=== PATIENT | female | born 1980 | race Caucasian/White ===

== ENCOUNTER 2018-12-12 05:05 | Emergency (ER) | payer OTHER ==
--- OUTSIDE RECORDS SUMMARY | 2018-12-12 05:08 | XMS REPORT ---
:1980 Author Organization [facility] Address [address] [place] [address] Dr. Acosta [address] [place] [id number] Care Team Providers Name Role Phone Unavailable Unavailable Unavailable Problems This patient has no known problems. Allergies, Adverse Reactions, Alerts This patient has no known allergies or adverse reactions. Medications This patient has no known medications.
--- NOTE | 2018-12-12 06:27 | EDPHYS ---
Physician Documentation [facility] Name: Hilaria Guevara Age: 38 yrs Sex: Female : 1980 Arrival Date: 12/12/2018 Time: 05:07 Bed 14 Private MD: MIL Physician Flavio Mckeon HPI: 12/12 06:22 This 38 yrs old Female presents to ER via Ambulatory with complaints of Pain ct With Urination, Urinary Frequency. 06:22 The patient presents with urinary symptoms, dysuria, frequency, hesitancy, ct incontinence. Onset: The symptoms/episode began/occurred 2 day(s) ago. Modifying factors: The symptoms are alleviated by nothing, the symptoms are aggravated by. Associated signs and symptoms: The patient has no apparent associated signs or symptoms. Severity of symptoms: At their worst the symptoms were mild, moderate, in the emergency department the symptoms are unchanged. The patient is sexually active, reportedly has a single partner. The patient has experienced similar episodes in the past, several times. 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 Historical: - Allergies: 05:24 Penicillins; jb4 - Home Meds: 05:24 Metformin Oral [Active]; trulicity [Active]; Invokana oral oral [Active]; BuSpar Oral jb4 [Active]; Wellbutrin Oral [Active]; Depakote ER Oral [Active]; Lisinopril Oral [Active]; Trazodone Oral [Active]; Lipitor Oral [Active]; nateglinide oral oral [Active]; fenofibrate oral oral [Active]; - PMHx: 05:24 Diabetes - NIDDM; Hyperlipidemia; Hypertension; Anxiety; Bipolar disorder; Depression; jb4 - PSHx: 05:24 Cholecystectomy; breast reduction; ; jb4 - Immunization history:: Adult Immunizations up to date. - Social history:: Smoking status: Patient uses tobacco products, cigars, Patient/guardian denies using alcohol. - Ebola Screening: : No symptoms or risks identified at this time. - Family history:: not pertinent. ROS: 06:22 Constitutional: Negative for fever, chills, and weight loss, Eyes: Negative for injury, ct pain, redness, and discharge, ENT: Negative for injury, pain, and discharge, Neck: Negative for injury, pain, and swelling, Cardiovascular: Negative for chest pain, palpitations, and edema, Respiratory: Negative for shortness of breath, cough, wheezing, and pleuritic chest pain, Back: Negative for injury and pain, : Negative for injury, bleeding, discharge, and swelling, MS/Extremity: Negative for injury and deformity, Skin: Negative for injury, rash, and discoloration, Neuro: Negative for headache, weakness, numbness, tingling, and seizure, Psych: Negative for depression, anxiety, suicide ideation, homicidal ideation, and hallucinations, Allergy/Immunology: Negative for hives, rash, and allergies, Endocrine: Negative for neck swelling, polydipsia, polyuria, polyphagia, and marked weight changes, Hematologic/Lymphatic: Negative for swollen nodes, abnormal bleeding, and unusual bruising. 06:22 Abdomen/GI: Positive for abdominal pain. 06:22 Back: Positive for flank pain, on the right. Exam: 06:22 Constitutional: This is a well developed, well nourished patient who is awake, alert, ct and in no acute distress. Head/Face: Normocephalic, atraumatic. Eyes: Pupils equal round and reactive to light, extra-ocular motions intact. Lids and lashes normal. Conjunctiva and sclera are non-icteric and not injected. Cornea within normal limits. Periorbital areas with no swelling, redness, or edema. ENT: Nares patent. No nasal discharge, no septal abnormalities noted. Tympanic membranes are normal and external auditory canals are clear. Oropharynx with no redness, swelling, or masses, exudates, or evidence of obstruction, uvula midline. Mucous membranes moist. Neck: Trachea midline, no thyromegaly or masses palpated, and no cervical lymphadenopathy. Supple, full range of motion without nuchal rigidity, or vertebral point tenderness. No Meningismus. Chest/axilla: Normal chest wall appearance and motion. Nontender with no deformity. No lesions are appreciated. Cardiovascular: Regular rate and rhythm with a normal S1 and S2. No gallops, murmurs, or rubs. Normal PMI, no JVD. No pulse deficits. Respiratory: Lungs have equal breath sounds bilaterally, clear to auscultation and percussion. No rales, rhonchi or wheezes noted. No increased work of breathing, no retractions or nasal flaring. Abdomen/GI: Soft, non-tender, with normal bowel sounds. No distension or tympany. No guarding or rebound. No evidence of tenderness throughout. Female : Normal external genitalia. Skin: Warm, dry with normal turgor. Normal color with no rashes, no lesions, and no evidence of cellulitis. MS/ Extremity: Pulses equal, no cyanosis. Neurovascular intact. Full, normal range of motion. Neuro: Awake and alert, GCS 15, oriented to person, place, time, and situation. Cranial nerves II-XII grossly intact. Motor strength 5/5 in all extremities. Sensory grossly intact. Cerebellar exam normal. Normal gait. Psych: Awake, alert, with orientation to person, place and time. Behavior, mood, and affect are within normal limits. 06:22 Back: pain, that is mild, of the mid back area. Vital Signs: 05:24 BP 124 / 78; Pulse 91; Resp 16; Temp 98.2(O); Pulse Ox 97% on R/A; Weight 90.72 kg (R); jb4 Height 5 ft. 6 in. (167.64 cm) (R); Pain 6/10; 05:45 BP 106 / 74; Pulse 89; Resp 16; Pulse Ox 96% on R/A; jb4 06:30 BP 107 / 86; Pulse 90; Resp 16; Pulse Ox 97% on R/A; jb4 05:24 Body Mass Index 32.28 (90.72 kg, 167.64 cm) 4 MDM: 05:09 Patient medically screened. [facility] 06:22 Data reviewed: vital signs, nurses notes, lab test result(s). [facility] 12/12 05:09 Order name: Urine Culture [facility] 12/12 05:40 Order name: Urine Dipstick--Ancillary (enter results) [facility] 12/12 05:40 Order name: Urine --Ancillary (enter results) [facility] 12/12 05:40 Order name: Urine Microscopic Only [facility] 12/12 05:09 Order name: Urine Dipstick-Ancillary (obtain specimen); Complete Time: 05:34 [facility] 12/12 05:09 Order name: Urine Test (obtain specimen); Complete Time: 05:34 [facility] Administered Medications: 06:39 Drug: LevOfloxacin 750 mg Route: PO; jb4 06:39 Follow up: Response: Medication administered at discharge. jb4 06:39 Drug: Bactrim (160 mg-800 mg (DS) 1 tablet Route: PO; jb4 06:39 Follow up: Response: Medication administered at discharge. jb4 Point of Care Testing: Blood Glucose: 05:44 Blood Glucose: 165 mg/dL; jb4 Ranges: Critical Glucose Levels:Adult <50 mg/dl or >400 mg/dl <40 mg/dl or >180 mg/dl Disposition: 12/12/18 06:26 Discharged to Home. Impression: Dysuria, Type 2 diabetes mellitus, Urinary tract infection, site not specified. - Condition is Stable. - Discharge Instructions: Type 2 Diabetes Mellitus, Diagnosis, Adult, Dysuria, Urinary Tract Infection, Adult, Urinary Tract Infection, Adult, [id number], Type 2 Diabetes Mellitus, Diagnosis, Adult, [id number]. - Prescriptions for Pyridium 200 mg Oral Tablet - take 1 tablet by ORAL route every 8 hours for 2 days; 6 tablet. Cipro 500 mg Oral Tablet - take 1 tablet by ORAL route every 12 hours for 7 days; 14 tablet. Bactrim DS 800- 160 mg Oral Tablet - take 1 tablet by ORAL route every 12 hours for 3 days; 6 tablet. - Medication Reconciliation Form, Thank You Letter, Antibiotic Education, Prescription Opioid Use form. - Follow up: Private Physician; When: 2 - 3 days; Reason: Recheck today's complaints, Continuance of care, Re-evaluation by your physician. - Problem is new. - Symptoms have improved. Signatures: Dispatcher [employer] Flavio Grier MD MD cha Bryson, James RN RN jb4 Corrections: (The following items were deleted from the chart) 06:42 06:26 12/12/2018 06:26 Discharged to Home. Impression: Dysuria; Type 2 diabetes jb4 mellitus; Urinary tract infection, site not specified. Condition is Stable. Forms are Medication Reconciliation Form, Thank You Letter, Antibiotic Education, Prescription Opioid Use. Follow up: Private Physician; When: 2 - 3 days; Reason: Recheck today's complaints, Continuance of care, Re-evaluation by your physician. Problem is new. Symptoms have improved. ct
--- NOTE | 2018-12-12 06:27 | ER ---
Nurse's Notes [facility] Name: Hilaria Guevara Age: 38 yrs Sex: Female : 1980 Arrival Date: 12/12/2018 Time: 05:07 Bed 14 Private MD: Diagnosis: Dysuria;Type 2 diabetes mellitus;Urinary tract infection, site not specified Presentation: 12/12 05:18 Presenting complaint: Patient states: I started having burning with urination on jb4 Sunday that has progressively gotten worse. Transition of care: patient was not received from another setting of care. Onset of symptoms was December 10, 2018. Risk Assessment: Do you want to hurt yourself or someone else? Patient reports no desire to harm self or others. Initial Sepsis Screen: Does the patient meet any 2 criteria? HR > 90 bpm. Yes Does the patient have a suspected source of infection? Yes: Dysuria/Frequency/Urgency/UTI. Care prior to arrival: None. 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 Historical: - Allergies: 05:24 Penicillins; jb4 - Home Meds: 05:24 Metformin Oral [Active]; trulicity [Active]; Invokana oral oral [Active]; BuSpar Oral jb4 [Active]; Wellbutrin Oral [Active]; Depakote ER Oral [Active]; Lisinopril Oral [Active]; Trazodone Oral [Active]; Lipitor Oral [Active]; nateglinide oral oral [Active]; fenofibrate oral oral [Active]; - PMHx: 05:24 Diabetes - NIDDM; Hyperlipidemia; Hypertension; Anxiety; Bipolar disorder; Depression; jb4 - PSHx: 05:24 Cholecystectomy; breast reduction; ; jb4 - Immunization history:: Adult Immunizations up to date. - Social history:: Smoking status: Patient uses tobacco products, cigars, Patient/guardian denies using alcohol. - Ebola Screening: : No symptoms or risks identified at this time. - Family history:: not pertinent. Screenin:34 Abuse screen: Denies threats or abuse. Nutritional screening: No deficits noted. jb4 Tuberculosis screening: No symptoms or risk factors identified. Fall Risk None identified. Assessment: 05:34 General: Appears in no apparent distress. comfortable, Behavior is calm, cooperative, jb4 appropriate for age. Pain: Complains of pain in right low back and groin Pain does not radiate. Pain currently is 6 out of 10 on a pain scale. Neuro: Level of Consciousness is awake, alert, obeys commands, Oriented to person, place, time, situation. Cardiovascular: Patient's skin is warm and dry. Respiratory: Airway is patent Respiratory effort is even, unlabored, Respiratory pattern is regular, symmetrical. GI: Reports nausea. : Urine is cloudy, Reports burning with urination, since Sunday pain in suprapubic area in lower back with urination, urgency, since sunday Patient is sexually active. EENT: No signs and/or symptoms were reported regarding the EENT system. Derm: Skin is intact, Skin is pink, warm \T\ dry. Musculoskeletal: Circulation, motion, and sensation intact. Range of motion: intact in all extremities. 05:58 Reassessment: Patient appears in no apparent distress at this time. Patient and/or jb4 family updated on plan of care and expected duration. Pain level reassessed. Patient is alert, oriented x 3, equal unlabored respirations, skin warm/dry/pink. 06:40 Reassessment: Patient appears in no apparent distress at this time. Patient and/or jb4 family updated on plan of care and expected duration. Pain level reassessed. Patient is alert, oriented x 3, equal unlabored respirations, skin warm/dry/pink. PT ambulated out of ED with steady gait, verbalized understanding of d/c and follow up instructions, denies questions or concerns. Vital Signs: 05:24 BP 124 / 78; Pulse 91; Resp 16; Temp 98.2(O); Pulse Ox 97% on R/A; Weight 90.72 kg (R); jb4 Height 5 ft. 6 in. (167.64 cm) (R); Pain 6/10; 05:45 BP 106 / 74; Pulse 89; Resp 16; Pulse Ox 96% on R/A; jb4 06:30 BP 107 / 86; Pulse 90; Resp 16; Pulse Ox 97% on R/A; jb4 05:24 Body Mass Index 32.28 (90.72 kg, 167.64 cm) jb4 ED Course: 05:07 Patient arrived in ED. ds1 05:08 Jeffry Owens, RN is Primary Nurse. jb4 05:09 Flavio Mckeon MD is Attending Physician. [facility] 05:20 Triage completed. jb4 05:24 Arm band placed on right wrist. jb4 05:34 Patient has correct armband on for positive identification. Bed in low position. Call jb4 light in reach. Side rails up X 1. 05:34 Urine Culture Sent. jb4 06:41 No provider procedures requiring assistance completed. Patient did not have IV access jb4 during this emergency room visit. Administered Medications: 06:39 Drug: LevOfloxacin 750 mg Route: PO; jb4 06:39 Follow up: Response: Medication administered at discharge. jb4 06:39 Drug: Bactrim (160 mg-800 mg (DS) 1 tablet Route: PO; jb4 06:39 Follow up: Response: Medication administered at discharge. jb4 Point of Care Testing: Blood Glucose: 05:44 Blood Glucose: 165 mg/dL; jb4 Ranges: Outcome: 06:26 Discharge ordered by . [facility] 06:41 Discharged to home ambulatory, with significant other. jb4 06:41 Condition: stable 06:41 Discharge instructions given to patient, significant other, Instructed on discharge instructions, follow up and referral plans. medication usage, Demonstrated understanding of instructions, follow-up care, medications, Prescriptions given X 3. 06:42 Patient left the ED. jb4 Addendum: 12/15/2018 07:49 Addendum: Culture Results: Positive urine culture. No further action required. Bacteria i w sensitive to prescribed antibiotic. Signatures: Flavio Mckeon MD MD cha Sanford, Demi ds1 Maday Awad, MARIE SALAZAR Jeffry Owens, MARIE RN jb4
[2018-12-12] MEDS ORDERED: SMZ./TMP. 800/160 MG TABLET ONE (06:48)
[2018-12-12] MEDS ORDERED: levoFLOXacin 750 MG TAB ONE (06:48)
[2018-12-12 07:10] LABS: Urine Bacteria <20 /HPF (<20); Urine Culture Reflex Order REFLEXED; Urine RBC >50 /HPF (NONE SEEN)
[2018-12-12 07:12] LABS: Urine Blood 3+ (NEG); Urine Glucose 3+ (NEG); Urine Protein 3+ (NEG); Urine pH 5.5 (5.0-7.0)
== END 2018-12-12 06:42 | disposition home or self-care (01) ==
LOC: ER 05:05
DX: N39.0 Urinary tract infection, site not specified (principal); E11.9 Type 2 diabetes mellitus without complications; E78.5 Hyperlipidemia, unspecified; I10 Essential (primary) hypertension; F41.9 Anxiety disorder, unspecified; F31.9 Bipolar disorder, unspecified; Z72.0 Tobacco use; Z79.84 Long term (current) use of oral hypoglycemic drugs; Z88.0 Allergy status to penicillin
CPT/HCPCS: 81003; 81015; 81025; 82962; 87077; 87086; 87088; 87186; 99283

== ENCOUNTER 2024-04-09 23:34 | Emergency (ER) | payer OTHER ==
--- OUTSIDE RECORDS SUMMARY | 2024-04-09 23:41 | XMS REPORT | Continuity of Care Document ---
Author Name Unknown Address [address] [facility]. [address] [place] [address] [facility] Address [address] [facility] [address] [place] [address] Care Team Providers Care Rubber Goods Assembler Name Role Phone ADRIA TORRES Primary Care Physician Stephy vailaErica Carlos Attending Clinician Unavailable Miriam Arce Attending Clinician Unavailable DR MIRIAM ARCE Attending Clinician UnavailCLINT Cheung Attending Clinician UnavailSHIKHA Youssef Attending Clinician Unavailable SIMONE CHADWICK Attending Clinician Unavailable SIMONE CHADWICK Attending Clinician Unavailable Clint Jett MD Attending Clinician [phone] Adria Torres MD Attending Clinician + [phone] ADRIA TORRES Attending Clinician UnaClint Branham MD Attending Clinician [phone] Shikha Luna Attending Clinician [phone] Atif Goins Attending Clinician Unavailable Adria Torres MD Attending Clinician + [phone] KRISTINA ALEX Attending Clinician Unavail able YUNI SCOTT Attending Clinician Stephy vailaYuni Soto MD Attending Clinician Hemanth Ritter CRNA Attending Clinician Barrera SAMUELS, Shawn Douglas Attending Clinician [phone] Doctor Unassigned, [place] Attending Clinician U richard Hernánb, [facility] Main Attending Clinician UnavailLudy Mccarthy MD Attending Clinician [phone] SHERRY LOMBARDI Attending Clinician Unavailable Harjit SHARPC, Sherry Attending Clinician [phone] Unknown, Attending Attending Clinician Unavailab LUDY De Jesus Attending Clinician Unavail able Salena SALAZAR, En Rabago Attending Clinician Unavail able Shahnaz SAMUELS, Foster Douglas Attending Clinician [phone] GARY LARSON Attending Clinician Unavailable GARY LARSON Attending Clinician Unavailable Gary Larson DO Attending Clinician [phone] DIAMOND MAXWELL Attending Clinician Unavailabl efra Maxwell BAGGER AND STOCK HANDLER HELPER, Omayemhina Attending Clinician [phone] [email or web address]_S Attending Clinician Unavaila ble Kumar BAGGER AND STOCK HANDLER HELPER, Reenu Attending Clinician [phone] MANISH KUMAR Attending Clinician Unavailable EbJohn Goel Attending Clinician [phone] JOHN PADILLA Attending Clinician Unavailable ALEX HARDY Attending Clinician Unavailable SARA ARNOLD Attending Clinician Unavailable Maxime Villanueva Attending Clinician [phone] MAXIME CALVIN Attending Clinician Unavailable Sara Arnold MD Attending Clinician [phone] Only, Adc Test Attending Clinician Unavailable 2, [facility] Attending Clinician Unavailable Remington RD, Shannon Attending Clinician [phone] REMINGTON, SHANNON Attending Clinician Unavailable ARCHANA RANDALL Attending Clinician Unavail able Magda Rowley MD Attending Clinician Adria Brower MD Attending Clinician [phone] MAGDA ROWLEY Attending Clinician Unavailab Miriam Cohen Admitting Clinician Unavailable DR MIRIAM ARCE Admitting Clinician Unavaila kojo JETT, CLINT Admitting Clinician Unavailabl Clint Sharma MD Admitting Clinician [phone] LUDY BURNETT Admitting Clinician Unavail able Ludy Burnett MD Admitting Clinician GARY LARSON Admitting Clinician Unavailable [email or web address]_S Admitting Clinician Unavaila SHERRY Galindo Admitting Clinician Unavailable SIMONE CHADWICK Admitting Clinician Unavailable Simone Chadwick MD Admitting Clinician [phone] Payers Payer Name Policy Type Policy Number Effective Date Expirati on Date Source [id number] 2021 00:00:00 [place]ID [place] [id number] 2019 00:00:00 MEDICARE PART A \\T\\ B [id number] 2007 00:00:00 Problems Condition Name Condition Details Condition Category Status Onset Date Resolution Date Last Treatment Date Treating Clinician Comments Source Marginal ulcer Marginal ulcer Disease Active 2022-05 00:00: 00 [facility] Generalize d abdominal pain Generalize d abdominal pain Disease Active 2022-05 00:00: 00 [facility] Essential hypertensi on Essential hypertensi on Disease Active 2020-05 00:00: 00 [facility] Gastric bypass status for obesity Gastric bypass status for obesity Disease Active 2020-05 00:00: 00 [facility] Proteinuri a Proteinuri a Disease Active 10-18 00:00: 00 [facility] Multiple thyroid nodules Multiple thyroid nodules Disease Active 2015-05 00:00: 00 [facility] Type 2 diabetes mellitus with complicati on, without long-term current use of insulin Type 2 diabetes mellitus with complicati on, without long-term current use of insulin Disease Active 01-11 00:00: 00 [facility] Dyslipidem ia Dyslipidem ia Disease Active 01-11 00:00: 00 [facility] Obesity Obesity Disease Active 2011-05 00:00: 00 [facility] History of PCOS History of PCOS Disease Active 2011-05 00:00: 00 [facility] [id number] Hearing difficulty of both ears Problem [facility] Hyperglyce marie due to type 2 diabetes mellitus Type 2 diabetes mellitus with hyperglyce marie Problem [facility] Mixed hyperlipid emia Mixed hyperlipid emia Problem [facility] [id number] Bipolar depression Problem [facility] Hypothyroi dism Hypothyroi dism, unspecifie d type Problem [facility] [id number] Primary insomnia Problem [facility] Gastric sleeve (physical object) H/O gastric sleeve Problem [facility] Ovarian mass, left Ovarian mass, left Disease Resolve d 2020-05 00:00: 00 2021-07-20 00:00:00 2021-07-20 15:00:31 [facility] Menorrhagi a with regular cycle Menorrhagi a with regular cycle Disease Resolve d 5-15 00:00: 00 2021-07-20 00:00:00 2021-07-20 15:00:35 [facility] Abnormal uterine bleeding (AUB) Abnormal uterine bleeding (AUB) Disease Resolve d 2017-05 00:00: 00 2021-07-20 00:00:00 2021-07-20 15:00:32 [facility] delivery delivered delivery delivered Disease Resolve d 2011-05 00:00: 00 2020-03-29 00:00:00 2020-03-29 10:20:41 [facility] Previous section complicati ng , antepartum condition or complicati on Previous section complicati ng , antepartum condition or complicati on Disease Resolve d 2011-05 00:00: 00 2020-03-29 00:00:00 2020-03-29 10:20:43 [facility] Mild or unspecifie d pre-eclamp ricky, antepartum Mild or unspecifie d pre-eclamp ricky, antepartum Disease Resolve d 2011-05:00: 00 2020-03-29 00:00:00 2020-03-29 10:20:45 [facility] Diabetes mellitus Diabetes mellitus Disease Resolve d 2011-05 00:00: 00 2016-01-12 00:00:00 2016-01-12 14:13:37 [facility] Allergies, Adverse Reactions, Alerts Allergy Name Allergy Type Status Severity Reaction(s) Onset Date Inactive Date Treating Clinician Comments Source CIPROFLO XACIN HCL DRUG INGREDI Active Med Rash 12-19 00:00: 00 [facility] Ciproflo xacin Hcl Propensi ty to adverse reaction s Active Rash 12-19 00:00: 00 [facility] PENICILL INS Drug Class Active Rash 2011-05 00:00: 00 [facility] Penicill ins Propensi ty to adverse reaction s Active Rash 2011-05 00:00: 00 [facility] Penicill ins Propensi ty to adverse reaction s Active Rash 2011-05 00:00: 00 [facility] Penicill ins Propensi ty to adverse reaction s Active Rash 2011-05 00:00: 00 [facility] Cipro Drug Active rash [facility] penicill ins Drug Active rash [facility] Cipro Drug Active rash [facility] penicill ins Drug Active rash [facility] Cipro Drug Active rash [facility] penicill ins Drug Active rash [facility] Cipro Drug Active rash [facility] penicill ins Drug Active rash [facility] Cipro Drug Active rash [facility] penicill ins Drug Active rash [facility] Cipro Drug Active rash [facility] penicill ins Drug Active rash [facility] ciproflo xacin ciproflo xacin Active Unknown [facility] [id number] Drug allergy Active Unknown [facility] Social History Social Habit Start Date Stop Date Quantity Comments Source Sexual orientation U [facility] Sex Assigned At [facility] Alcoholic beverage intake 2024-01-09 00:00:00 2024-01-09 00:00:00 0 /d [facility] Alcohol intake 2023-08-01 00:00:00 2023-08-01 00:00:00 0 /d [facility] History of Social function 2023-07-02 00:00:00 2023-07-02 00:00:00 [facility] Tobacco use and exposure 2023-07-02 00:00:00 2023-07-02 00:00:00 Former smokeless tobacco user [facility] Exposure to SARS-CoV-2 (event) 2022-06-25 00:00:00 2022-07-05 10:39:00 Not sure [facility] History of tobacco use 2019-09-27 00:00:00 Cigar Smoker [facility] Tobacco Comment 2019-02-27 00:00:00 2019-02-27 00:00:00 6 a day [facility] Smoking Status Start Date Stop Date Source Ex-smoker 2023-07-02 00:00:00 [facility]23[facility] 2022-08-09 00:00:00 [facility] Medications Ordered Medication Name Filled Medication Name Start Date Stop Date Current Medication? Ordering Clinician Indication Dosage Frequency Signature (SIG) Comments Components Source omeprazole 40 mg capsule 01-27 00:00: 00 08-26 04:59 :00 Yes [id number] 40mg Take 1 capsule by mouth in the morning for 210 days. [facility] ergocalcife rol, vitamin d2, (VITAMIN D2) 1,250 mcg (50,000 unit) capsule 01-27 00:00: 00 08-06 04:59 :00 Yes [id number] Take 1 capsule by mouth weekly for 28 doses. [facility] tirzepatide (MOUNJARO) 5 mg/0.5 mL subcutaneou s injection 11-15 00:00: 00 Yes [id number] 5mg inject 5 mg under the skin weekly. [facility] Blood-Gluco se Meter (CONTOUR NEXT METER) Misc 11-15 00:00: 00 Yes [id number] Use as directed, TID, DX:E11.9 [facility] empaglifloz in (JARDIANCE) 10 mg tablet 11-15 00:00: 00 Yes [id number] 10mg Take 1 tablet by mouth in the morning. [facility] Levothyroxi ne 50 mcg capsule 11-15 00:00: 00 Yes [id number] 50ug Take 1 capsule by mouth in the morning. [facility] ergocalcife rol, vitamin D2, (VITAMIN D2 ORAL) 10-11 10:22: 14 Yes Take by mouth. [facility] Levothyroxi ne 50 mcg capsule 10-11 10:22: 14 11-15 00:00 :00 No 50ug Take 1 capsule by mouth in the morning. [facility] benzonatate (TESSALON PERLES) 100 mg capsule 10-11 00:00: 00 11-15 00:00 :00 No [id number] 100mg Take 1 capsule by mouth every 6 (six) hours as needed for Cough. [facility] predniSONE 20 mg tablet 10-11 00:00: 00 10-17 04:59 :00 No [id number] 20mg Take 1 tablet by mouth in the morning and 1 tablet in the evening. Do all this for 5 days. [facility] QUEtiapine 100 mg tablet 09-29 00:00: 00 01-27 00:00 :00 No TAKE 1/2 TABLET BY MOUTH AT BEDTIME FOR 1 DAY , THEN TAKE 1 TABLET BY MOUTH AT BEDTIME FOR 1 DAY,THEN TAKE 1 AND 1/2 TABLETS AT BEDTIME FOR 1 DAY, THEN TAKE 2 TABLETS AT BEDTIME THEREAFTER DIRECTED [facility] simethicone (GAS-X ORAL) 08-12 11:23: 27 Yes Take by mouth. [facility] Levothyroxi ne 50 mcg capsule 08-12 11:23: 27 Yes 50ug Take 1 capsule by mouth in the morning. [facility] Levothyroxi ne 50 mcg capsule 07-31 13:21: 43 Yes 50ug Take 1 capsule by mouth in the morning. [facility] simethicone (GAS-X ORAL) 07-31 13:08: 03 Yes Take by mouth. [facility] gabapentin 300 mg capsule 07-31 00:00: 00 Yes [id number] 300mg Take 1 capsule by mouth at bedtime. [facility] atorvastati n 20 mg tablet 07-31 00:00: 00 Yes [id number] 20mg Take 1 tablet by mouth at bedtime. [facility] blood sugar diagnostic (CONTOUR NEXT TEST STRIPS) strip 07-31 00:00: 00 Yes [id number] 1{strip } Take 1 Strip in the morning. Use as directed [facility] water for irrigation irrigation solution 07-02 18:24: 07-02 18:57 :10 No PRN, Starting on Sun07/02/23 at 1224, Until Sun07/02/23 at 1257, Routine, Intra-op [facility] simethicone (GAS RELIEF (SIMETHICON E)) 40 mg/0.6 mL drops 07-02 18:24: 00 07-02 18:57 :10 No PRN, Starting on Sun07/02/23 at 1224, Until Sun07/02/23 at 1257, Routine, Intra-op [facility] FENTanyl PF (SUBLIMAZE (PF)) injection 07-02 18:23: 00 07-02 20:19 :03 No Epidural, ONCE INTRA PROCEDURE, Starting on Sun07/02/23 at 1223, Until Sun07/02/23 at 1419, Routine, Intra-op [facility] propofoL IV infusion 07-02 18:23: 00 07-02 18:47 :37 No IV Infusion, ONCE INTRA PROCEDURE, Starting on Sun07/02/23 at 1223, Until Sun07/02/23 at 1247, Routine, Intra-op [facility] lactated ringers IV infusion 07-02 18:19: 00 07-02 18:47 :37 No IV Infusion, CONTINUOUS PRN, Starting on Sun07/02/23 at 1219, Until Sun07/02/23 at 1247, Routine, Intra-op [facility] lidocaine 1% (XYLOCAINE) 100 mg/10 mL (1 %) injection 07-02 18:19: 00 07-02 18:47 :37 No Slow IV Push, ONCE INTRA PROCEDURE, Starting on Sun07/02/23 at 1219, Until Sun07/02/23 at 1247, Routine, Intra-op [facility] lactated ringers IV infusion 1,000 mL 07-02 17:30: 00 07-02 17:21 :00 No 1000mL at 42 mL/hr, 1,000 mL, IV Infusion, ONCE, 1 dose, On Sun07/02/23 at 1130, Routine, DSU Pre-op [facility] simethicone (GAS-X ORAL) 07-02 14:30: 41 Yes Take by mouth. [facility] simethicone (GAS-X ORAL) 07-02 12:48: 50 Yes Take by mouth. [facility] ergocalcife rol, vitamin d2, (VITAMIN D2) 1,250 mcg (50,000 unit) capsule 07-02 00:00: 00 10-30 04:59 :00 No [id number] 12996H Take 1 capsule by mouth weekly for 120 days. [facility] simethicone (GAS-X ORAL) 06-22 13:51: 13 Yes Take by mouth. [facility] simethicone (GAS-X ORAL) 06-18 08:50: 48 Yes Take by mouth. [facility] pantoprazol e (PROTONIX) 40 mg EC tablet 06-18 00:00: 00 10-16 04:59 :00 No [id number] 40mg Take 1 tablet by mouth in the morning and 1 tablet in the evening. Do all this for 120 days. [facility] sucralfate (CARAFATE) 1 gram tablet 06-18 00:00: 00 10-16 04:59 :00 No [id number] 1g Take 1 tablet by mouth in the morning and 1 tablet at noon and 1 tablet in the evening. Do all this for 120 days. [facility] dulaglutide (TRULICITY) 3 mg/0.5 mL PnIj 06-05 00:00: 00 11-15 00:00 :00 No [id number] 3mg inject 1 Pen under the skin weekly. [facility] escitalopra m oxalate 10 mg tablet 05-23 00:00: 00 01-27 00:00 :00 No 10mg Take 1 tablet by mouth in the morning. [facility] metformin ER 500 mg 24 hr tablet 2022-05 00:00: 00 Yes [id number] 1000mg Take 2 tablets by mouth in the morning and 2 tablets in the evening. Take with meals. [facility] levothyroxi ne 25 mcg tablet 2022-05 00:00: 00 07-31 00:00 :00 No [id number] 25ug Take 1 tablet by mouth every morning. [facility] lisinopriL 2.5 mg tablet 2022-05 00:00: 00 06-18 00:00 :00 No [id number] 2.5mg Take 1 tablet by mouth in the morning. [facility] dulaglutide (TRULICITY) 1.5 mg/0.5 mL PnIj 2022-05 00:00: 00 06-05 00:00 :00 No [id number] 1.5mg inject 1 Pen under the skin weekly. [facility] polyethylen e glycol 3350 17 gram powder 2022-05 00:00: 00 07-02 00:00 :00 No [id number] 17g Take 1 Packet by mouth in the morning. [facility] pantoprazol e (PROTONIX) EC tablet 40 mg 2022-05 16:15: 00 Yes 40mg 40 mg, Oral, BID, First dose on Sun04/25/23 at 1015, Until Discontinu ed, Routine [facility] metroNIDAZO LE (FLAGYL) tablet 500 mg 2022-05 14:00: 00 05-09 13:59 :00 No 500mg 500 mg, Oral, Q12H, 28 doses, First dose on Sun04/25/23 at 0800, Last dose on Sun05/08/23 at 2000, Routine
Reason for Anti-Infec tive: Empiric Therapy for Suspected Infection< br>Empiric Therapy Site: Abdominal< br>Duratio n of therapy: 5 days [facility] clarithromy brennan (BIAXIN) tablet 500 mg 2022-05 14:00: 00 05-09 13:59 :00 No 500mg 500 mg, Oral, Q12H, 28 doses, First dose on Sun04/25/23 at 0800, Last dose on Sun05/08/23 at 2000, WON
Re ason for Anti-Infec tive: Empiric Therapy for Suspected Infection< br>Empiric Therapy Site: Abdominal< br>Duratio n of therapy: 5 days [facility] zolpidem (AMBIEN) tablet 5 mg 2022-05 02:55: 46 Yes 5mg 5 mg, Oral, QHSPRN, Starting on Sun04/24/23 at 2055, Until Discontinu ed, Routine, Insomnia [facility] acetaminoph en 325 mg tablet 2022-05 00:00: 00 04-25 05:59 :00 No [id number] 650mg Take 2 tablets by mouth every 6 (six) hours. [facility] pantoprazol e 40 mg EC tablet 2022-05 00:00: 00 07-02 00:00 :00 No [id number] 40mg Take 1 tablet by mouth in the morning and 1 tablet in the evening. [facility] clarithromy brennan 500 mg tablet 2022-05 00:00: 00 05-06 05:59 :00 No [id number] 500mg Take 1 tablet by mouth every 12 (twelve) hours for 10 days. [facility] metroNIDAZO LE 500 mg tablet 2022-05 00:00: 00 05-06 05:59 :00 No [id number] 500mg Take 1 tablet by mouth every 12 (twelve) hours for 10 days. [facility] traMADoL 50 mg tablet 2022-05 00:00: 00 05-03 05:59 :00 No [id number] 50mg Take 1 tablet by mouth every 6 (six) hours as needed for Pain (scale 4-6) for up to 7 days. Indication s: acute pain [facility] ipratropium -albuteroL (DUONEB) 0.5 mg-3 mg(2.5 mg base)/3 mL nebulizer solution 3 mL 2022-05 23:12: 26 Yes 3mL 3 mL, Inhalation , TIDPRN, Starting on Sun04/24/23 at 1712, Until Discontinu ed, Routine, Wheezing, Chest tightness, Shortness of Breath [facility] polyethylen e glycol 3350 powder 17 g 2022-05 22:30: 00 Yes 17g 17 g, Oral, DAILY, First dose on Sun04/24/23 at 1630, Until Discontinu ed, Routine [facility] acetaminoph en (TYLENOL) tablet 650 mg 2022-05 18:13: 05 04-24 22:23 :50 No 650mg 650 mg, Oral, Q6HPRN, Starting on Sun04/24/23 at 1213, Until Sun04/24/23 at 1623, Routine, Pain (scale 1-3) [facility] bisacodyL (DULCOLAX) suppository 10 mg 2022-05 13:38: 08 Yes 10mg 10 mg, Rectal, QHSPRN, Starting on Sun04/24/23 at 0738, Until Discontinu ed, Routine, Constipati on [facility] levothyroxi ne (SYNTHROID) tablet 25 mcg 2022-05 12:00: 00 Yes 25ug 25 mcg, Oral, QAM-0600, First dose on Sun04/24/23 at 0600, Until Discontinu ed, Routine [facility] magnesium sulfate in water 2 gram/50 mL (4 %) infusion 2 g 2022-05 00:45: 00 04-24 02:33 :00 No 2g 2 g, IV Piggyback, Administer over 60 Minutes, ONCE, 1 dose, On Sun04/23/23 at 1845, Routine [facility] acetaminoph en ADULT (OFIRMEV) injection 1,000 mg 2022-05 20:00: 00 04-24 19:59 :00 No 1000mg 1,000 mg, IV Infusion, at 400 mL/hr Administer over 15 Minutes, Q8H, 3 doses, First dose (after last reorder) on Sun04/23/23 at 1400, Last dose on Sun04/24/23 at 0600, Routine
Indicatio n: Strict NPO and unable to tolerate oral medication s [facility] traMADoL (ULTRAM) tablet 50 mg 2022-05 14:47: 42 Yes 50mg 50 mg, Oral, Q6HPRN, Starting on Sun04/23/23 at 0847, Until Discontinu ed, Routine, Pain (scale 4-6) [facility] morpHINE (2 mg/mL) injection 2 mg 2022-05 14:47: 31 Yes 2mg 2 mg, Slow IV Push, Q3HPRN, Starting on Sun04/23/23 at 0847, Until Discontinu ed, Routine, Pain (scale 7-10) [facility] sodium phosphate 15 mmol in NaCl 0.9% (NS) 250 mL piggyback 2022-05 01:00: 00 04-23 08:29 :00 No 15mmol 15 mmol, IV Piggyback, ONCE, 1 dose, On Sun04/22/23 at 1900, Administer over 4 Hours, 250 mL [facility] Sliding Scale Insulin - Lispro (HumaLOG) 2022-05 00:00: 00 Yes Subcutaneo us, Q6H, First dose (after last modificati on) on 04/22/23 at 1800, Until Discontinu ed, Routine [facility] KCL (POTASSIUM CHLORIDE) 40 mEq in NaCl 0.45% (1/2NS) IV Solution 2022-05 15:30: 00 Yes IV Infusion, CONTINUOUS , Starting on 04/22/23 at 0930, Until Discontinu ed, 1,000 mL, at 75 mL/hr [facility] morpHINE (4 mg/mL) injection 4 mg 2022-05 01:30: 00 04-22 00:50 :00 No 4mg 4 mg, Slow IV Push, ONCE, 1 dose, On 04/21/23 at 1930, Routine [facility] enoxaparin (LOVENOX) injection 40 mg 2022-05 23:00: 00 Yes 40mg 40 mg, Subcutaneo us, DAILY, First dose on 04/21/23 at 1700, Until Discontinu ed, Routine [facility] glucagon (GLUCAGEN DIAGNOSTIC KIT) injection 1 mg 2022-05 22:11: 24 Yes 1mg 1 mg, Intramuscu lar, PRN, Starting on 04/21/23 at 1611, Until Discontinu ed, WON, Blood Glucose < or = 70 mg/dL and patient is NPO, unable to swallow or has mental changes. [facility] dextrose 50 % in water (D50W) injection 25 mL 2022-05 22:11: 24 Yes 25mL 25 mL, Slow IV Push, PRN, Starting on 04/21/23 at 1611, Until Discontinu ed, WON, Blood Glucose < or = 70 mg/dL and patient is NPO, unable to swallow or has mental status changes. [facility] methocarbam oL (ROBAXIN) injection 1,000 mg 2022-05 20:00: 00 Yes 1000mg 1,000 mg, Intravenou s, Q8H, First dose on 04/21/23 at 1400, Until Discontinu ed, [facility] (OFIRMEV) injection 1,000 mg 2022-05 20:00: 00 04-22 11:57 :00 No 1000mg 1,000 mg, IV Infusion, at 400 mL/hr Administer over 15 Minutes, Q8H, 3 doses, First dose on Sun04/21/23 at 1400, Last dose on Sun04/22/23 at 0600, Routine
Indicatio n: Strict NPO and unable to tolerate oral medication s [facility] pantoprazol e (PROTONIX) injection 40 mg 2022-05 18:00: 00 Yes 40mg 40 mg, Slow IV Push, Q24H, First dose on Sun04/21/23 at 1200, Until Discontinu ed [facility] cefTRIAXone (ROCEPHIN) 2,000 mg in NaCl 0.9% (NS) 100 mL MINI-BAG 2022-05 18:00: 00 04-28 17:59 :00 No 2000mg 2,000 mg, IV Piggyback, Q24H ABX, 7 doses, First dose on Sun04/21/23 at 1200, Last dose on Sun04/27/23 at 1200, Administer over 30 Minutes, 100 mL
Reas on for Anti-Infec tive: Documented Infection< br>Documen marii Infection Site: Abdominal< br>Duratio n of Therapy: 7 days [facility] lactated ringers IV infusion 500 mL 2022-05 17:45: 00 04-21 20:09 :45 No 500mL at 999 mL/hr, 500 mL, Intravenou s, ONCE, 1 dose, On Sun04/21/23 at 1145, Routine [facility] magnesium sulfate in water 2 gram/50 mL (4 %) infusion 2 g 2022-05 17:00: 00 04-21 18:23 :00 No 2g 2 g, IV Piggyback, Administer over 60 Minutes, ONCE, 1 dose, On Sun04/21/23 at 1100, Routine [facility] phenoL (SORE THROAT (PHENOL)) 1.4 % spray bottle 1 Campbell 2022-05 16:45: 25 Yes 1{spray } 1 Campbell, Oral, PRN, Starting on 04/21/23 at 1045, Until Discontinu ed, Routine, Sore throat [facility] metroNIDAZO LE in NaCl (iso-os) (FLAGYL I.V.) RTU IV infusion 500 mg 2022-05 14:00: 00 04-28 13:59 :00 No 500mg 500 mg, IV Piggyback, Q8H ABX, 21 doses, First dose on Sun04/21/23 at 0800, Last dose on Sun04/28/23 at 0000, Administer over 75 Minutes, 100 mL
Reas on for Anti-Infec tive: Documented Infection< br>Documen marii Infection Site: Abdominal< br>Duratio n of Therapy: 7 days [facility] famotidine (PEPCID (PF)) injection 20 mg 2022-05 14:00: 00 04-21 16:49 :46 No 20mg 20 mg, Slow IV Push, Q12H, 6 doses, First dose on Sun04/21/23 at 0800, Last dose on Sun04/23/23 at 2000, Routine
Indicatio n for use: None of the above [facility] morpHINE 30 mg/30 mL (fixed dose) MEDICAL ASSISTANT SECRETARY injection 2022-05 13:30: 00 04-23 14:47 :55 No Patient Bolus Dose: 1 mg
Lock out Interval: 6 Minutes
Basal Rate: 1 mg/hr
F our Hour Dose Limit: 10 mg
Intr avenous, 30 mL, CONTINUOUS , Starting on Sun04/21/23 at 0730, Until Sun04/23/23 at 0847 [facility] metoprolol (LOPRESSOR) injection 5 mg 2022-05 13:00: 00 04-21 12:43 :00 No 5mg 5 mg, Slow IV Push, ONCE, 1 dose, On 04/21/23 at 0700, Routine [facility] hydralAZINE (APRESOLINE ) injection 10 mg 2022-05 12:15: 00 04-21 11:28 :00 No 10mg 10 mg, Slow IV Push, ONCE, 1 dose, On 04/21/23 at 0615, STAT [facility] hydralAZINE (APRESOLINE ) injection 10 mg 2022-05 12:02: 24 Yes 10mg 10 mg, Slow IV Push, Q6HPRN, Starting on 04/21/23 at 0602, Until Discontinu ed, Routine, DBP=>100; SBP=>180 [facility] D5W 0.45% NaCl (1/2NS) 1 L + KCL 20 mEq 2022-05 11:00: 00 04-22 14:54 :17 No IV Infusion, at 125 mL/hr, CONTINUOUS , Starting on 04/21/23 at 0500, Until 04/22/23 at 0854, Routine [facility] morpHINE 30 mg/30 mL (fixed dose) MEDICAL ASSISTANT SECRETARY injection 2022-05 10:30: 00 04-21 13:24 :32 No Patient Bolus Dose: 1 mg
Lock out Interval: 6 Minutes
Basal Rate: 1 mg/hr
F our Hour Dose Limit: 8 mg
Intr avenous, 30 mL, CONTINUOUS , Starting on 04/21/23 at 0430, Until 04/21/23 at 0724 [facility] FENTanyl PF (SUBLIMAZE (PF)) injection 25 mcg 2022-05 09:36: 14 04-21 10:46 :02 No 25ug 25 mcg, Slow IV Push, Q5MIN PRN, 4 doses, Starting on 04/21/23 at 0336, Until 04/21/23 at 0446, Routine, Pain (scale 4-6), PACU [facility] ondansetron (ZOFRAN (PF)) injection 4 mg 2022-05 09:22: 20 Yes 4mg 4 mg, Slow IV Push, Q6HPRN, Starting on 04/21/23 at 0322, Until Discontinu ed, Routine, Nausea and Vomiting (N/V) [facility] naloxone (NARCAN) injection 0.4 mg 2022-05 09:20: 00 Yes .4mg 0.4 mg, Slow IV Push, PRN, Starting on 04/21/23 at 0320, Until Discontinu ed, Routine, Sedation/R espiratory Depression [facility] morpHINE 2 mg/mL LOAD & RESCUE INJECTION SYRG 2022-05 09:20: 00 Yes Slow IV Push, Routine [facility] sodium chloride 0.9 % irrigation solution 2022-05 07:39: 00 04-21 10:36 :59 No PRN, Starting on 04/21/23 at 0139, Until 04/21/23 at 0436, Intra-op [facility] lactated ringers IV infusion 1,000 mL 2022-05 07:30: 00 04-21 10:46 :02 No 1000mL at 100 mL/hr, 1,000 mL, IV Infusion, CONTINUOUS , Starting on 04/21/23 at 0130, Until 04/21/23 at 0446, Routine [facility] lactated ringers IV infusion 500 mL 2022-05 07:15: 00 04-21 06:59 :00 No 500mL at 999 mL/hr, 500 mL, Intravenou s, ONCE, 1 dose, On 04/21/23 at 0115, Routine [facility] acetaminoph en ADULT (OFIRMEV) injection 1,000 mg 2022-05 07:00: 00 04-21 06:31 :00 No 1000mg 1,000 mg, IV Infusion, at 400 mL/hr Administer over 15 Minutes, ONCE, 1 dose, On 04/21/23 at 0100, WON
In dication: Strict NPO and unable to tolerate oral medication s [facility] morpHINE (4 mg/mL) injection 4 mg 2022-05 06:00: 00 04-21 05:48 :00 No 4mg 4 mg, Slow IV Push, ONCE, 1 dose, On 04/21/23 at 0000, STAT [facility] metroNIDAZO LE in NaCl (iso-os) (FLAGYL I.V.) RTU IV infusion 500 mg 2022-05 06:00: 00 04-21 07:07 :00 No 500mg 500 mg, IV Infusion, ONCE NOW, 1 dose, On 04/21/23 at 0000, Administer over 60 Minutes, 100 mL
Reas on for Anti-Infec tive: Surgical Prophylaxi s
Surgi viridiana Prophylaxi s: Abdominal< br>Duratio n of therapy: within 24 hours of surgery [facility] cefTRIAXone (ROCEPHIN) 1,000 mg in NaCl 0.9% (NS) 100 mL MINI-BAG 2022-05 06:00: 00 04-21 06:17 :00 No 1000mg 1,000 mg, IV Piggyback, ONCE, 1 dose, On 04/21/23 at 0000, Administer over 30 Minutes, 100 mL
Reas on for Anti-Infec tive: Surgical Prophylaxi s
Surgi viridiana Prophylaxi s: Abdominal< br>Duratio n of therapy: within 24 hours of surgery [facility] ketorolac (TORADOL) injection 30 mg 2022-05 05:00: 00 04-21 04:15 :00 No 30mg 30 mg, Slow IV Push, ONCE, 1 dose, On Sun04/20/23 at 2300, Routine [facility] iopamidol (ISOVUE 370-500 mL) injection 85 mL 2022-05 04:30: 00 04-21 04:30 :00 No [id number] 85mL 85 mL, Intravenou s, ONCE, 1 dose, On Sun04/20/23 at 2230, Routine [facility] morpHINE (4 mg/mL) injection 4 mg 2022-05 03:15: 00 04-21 03:28 :00 No 4mg 4 mg, Slow IV Push, ONCE, 1 dose, On Sun04/20/23 at 2115, STAT [facility] NaCl 0.9% (NS) IV infusion 1,000 mL 2022-05 02:45: 00 04-21 10:46 :02 No 1000mL at 999 mL/hr, Intravenou s, CONTINUOUS , Starting on Sun04/20/23 at 2045, Until Sun23 at 0446, Routine [facility] FENTanyl PF (SUBLIMAZE (PF)) injection 50 mcg 2022-05 02:45: 00 04-21 02:39 :00 No 50ug 50 mcg, Slow IV Push, ONCE, 1 dose, On Sun04/20/23 at 2045, Routine [facility] ondansetron (ZOFRAN (PF)) injection 4 mg 2022-05 01:45: 00 04-21 02:37 :00 No 4mg 4 mg, Slow IV Push, ONCE, 1 dose, On Sun04/20/23 at 1945, WON [facility] ibuprofen (IBU) tablet 600 mg 2022-05 03:00: 00 04-20 03:00 :00 No 600mg 600 mg, Oral, ONCE, 1 dose, On Gabriella 04/19/23 at 2100, WON [facility] azithromyci n 500 mg tablet 2022-05 00:00: 00 05-16 00:00 :00 No [id number] 500mg Take 1 tablet by mouth in the morning. [facility] benzonatate 200 mg capsule 2022-05 00:00: 00 05-16 00:00 :00 No [id number] 200mg Take 1 capsule by mouth 3 (three) times daily as needed for Cough. [facility] lisinopriL 5 mg tablet 2022-05 00:00: 00 Yes 5mg Take 1 tablet by mouth in the morning. [facility] albuterol 90 mcg/actuati on inhaler 2022-05 00:00: 00 Yes [id number] 2{puff} Inhale 2 Puffs every 6 (six) hours as needed for Shortness of Breath or Chest tightness. [facility] bromphenira mine-pseudo ephedrine-D M (BROMFED DM) 2-30-10 mg/5 mL syrup 2022-05 00:00: 00 04-10 00:00 :00 No [id number] 10mL Take 10 mL by mouth 4 (four) times daily as needed for Cold symptoms for up to 10 days. [facility] methylPREDN ISolone (MEDROL, MIHAI,) 4 mg tablets 2022-05 00:00: 00 04-10 00:00 :00 No [id number] Take by mouth SEE-INSTRU CTIONS. follow package directions [facility] maalox/diph enhydrAMINE :lidocaine2 % viscous 1:1:1 Susp suspension 2021-05 00:00: 00 04-07 05:59 :00 No [id number] 15mL Take 15 mL by mouth in the morning and 15 mL in the evening. Do all this for 5 days. [facility] Trulicity 1.5mg/0.5ml Trulicity 1.5mg/0.5ml 02-08 00:00: 00 08-07 00:00 :00 No Trulicity 1.5mg/0.5m l Trulicity 1.5mg/0.5ml Trulicity 1.5mg/0.5ml 02-08 00:00: 00 08-07 00:00 :00 No Trulicity 1.5mg/0.5m l dulaglutide (TRULICITY) 0.75 mg/0.5 mL PnIj 12 00:00: 00 05-03 00:00 :00 No [facility] Trulicity 0.75mg/0.5m l Trulicity 0.75mg/0.5m l 20 00:00: 00 No Trulicity 0.75mg/0.5 ml buPROPion XL 300 mg 24 hr tablet 5-05 00:00: 00 Yes 300mg Take 1 tablet by mouth. [facility] bromphenira mine-pseudo ephedrine-D M (BROMFED DM) 2-30-10 mg/5 mL syrup 4-13 00:00: 00 07-02 00:00 :00 No [id number] 10mL Take 10 mL by mouth 4 (four) times daily as needed for Congestion /Allergies or Cold symptoms. [facility] polymyxin B sulf-trimet hoprim 10,000 unit- 1 mg/mL ophthalmic drops 4-13 00:00: 00 04-10 00:00 :00 No INSTILL 1 DROP INTO EACH EYE EVERY 6 HOURS FOR 7 DAYS [facility] metformin ER 500 mg 24 hr tablet 4- 00:00: 00 05-03 00:00 :00 No [id number] 1000mg Take 2 tablets by mouth 2 (two) times daily with meals. [facility] canaglifloz in (INVOKANA) 300 mg tablet 08-17 00:00: 00 04-10 00:00 :00 No [id number] 300mg Take 1 tablet by mouth daily. [facility] lisinopriL 2.5 mg tablet 08-12 00:00: 00 05-03 00:00 :00 No [facility] traZODone 100 mg tablet 2020-05 0 00:00: 00 01-27 00:00 :00 No [facility] atorvastati n 20 mg tablet 02-09 00:00: 00 07-31 00:00 :00 No [id number] 20mg Take 1 tablet by mouth at bedtime. [facility] levothyroxi ne 25 mcg tablet 02-09 00:00: 00 05-03 00:00 :00 No [id number] 25ug Take 1 tablet by mouth every morning. [facility] busPIRone 15 mg tablet 02-03 00:00: 00 Yes 15mg Take 1 tablet by mouth in the morning and 1 tablet at noon and 1 tablet in the evening. [facility] divalproex ER 500 mg 24 hr tablet 02-03 00:00: 00 01-27 00:00 :00 No [facility] famotidine (PEPCID) 40 mg tablet 3-26 00:00: 00 Yes [id number] 40mg Take 1 tablet by mouth 2 (two) times daily. [facility] buPROPion XL 150 mg 24 hr tablet 30 00:00: 00 01-27 00:00 :00 No 300mg 2 tablets. [facility] Blood-Gluco se M[place] [facility] [place]: 00 Yes Use as directed, TID, DX:E11.9 [facility] Blood-Gluco se Meter ([place]OUR NEXT METER[place] [facility] [place]:00: 00 11-15 00:00 :00 No Use as directed, TID, DX:E11.9 [facility] busPIRone HCl 15 MG busPIRone HCl 15 MG No 1{table t} TID busPIRone HCl 15 MG Lisinopril 2.5 MG Lisinopril 2.5 MG No 1{table t} QD Lisinopril 2.5 MG traZODone HCl 100 MG traZODone HCl 100 MG No 1{table t_at_be dtime_a s_neede d} QD traZODone HCl 100 MG Famotidine 40 MG Famotidine 40 MG No Famotidine 40 MG Divalproex Sodium ER 500 MG Divalproex Sodium ER 500 MG No Divalproex Sodium ER 500 MG busPIRone HCl 15 MG busPIRone HCl 15 MG No 1{table t} TID busPIRone HCl 15 MG Levothyroxi ne Sodium 50 MCG Levothyroxi ne Sodium 50 MCG No Levothyrox ine Sodium 50 MCG Lisinopril 5 MG Lisinopril 5 MG No 1{table t} QD Lisinopril 5 MG buPROPion HCl ER (XL) 150 MG buPROPion HCl ER (XL) 150 MG No buPROPion HCl ER (XL) 150 MG traZODone HCl 100 MG traZODone HCl 100 MG No 1{table t_at_be dtime_a s_neede d} QD traZODone HCl 100 MG Famotidine 40 MG Famotidine 40 MG No Famotidine 40 MG Divalproex Sodium ER 500 MG Divalproex Sodium ER 500 MG No Divalproex Sodium ER 500 MG busPIRone HCl 15 MG busPIRone HCl 15 MG No 1{table t} TID busPIRone HCl 15 MG Trulicity 3 MG/0.5ML Trulicity 3 MG/0.5ML No Trulicity 3 MG/0.5ML Levothyroxi ne Sodium 50 MCG Levothyroxi ne Sodium 50 MCG No Levothyrox ine Sodium 50 MCG Lisinopril 5 MG Lisinopril 5 MG No 1{table t} QD Lisinopril 5 MG buPROPion HCl ER (XL) 150 MG buPROPion HCl ER (XL) 150 MG No buPROPion HCl ER (XL) 150 MG Atorvastati n Calcium 20 MG Atorvastati n Calcium 20 MG No Atorvastat in Calcium 20 MG metFORMIN HCl ER 500 MG metFORMIN HCl ER 500 MG No metFORMIN HCl ER 500 MG traZODone HCl 100 MG traZODone HCl 100 MG No 1{table t_at_be dtime_a s_neede d} QD traZODone HCl 100 MG Famotidine 40 MG Famotidine 40 MG No Famotidine 40 MG Divalproex Sodium ER 500 MG Divalproex Sodium ER 500 MG No Divalproex Sodium ER 500 MG busPIRone HCl 15 MG busPIRone HCl 15 MG No 1{table t} TID busPIRone HCl 15 MG Trulicity 3 MG/0.5ML Trulicity 3 MG/0.5ML No Trulicity 3 MG/0.5ML Levothyroxi ne Sodium 50 MCG Levothyroxi ne Sodium 50 MCG No Levothyrox ine Sodium 50 MCG Lisinopril 5 MG Lisinopril 5 MG No 1{table t} QD Lisinopril 5 MG buPROPion HCl ER (XL) 150 MG buPROPion HCl ER (XL) 150 MG No buPROPion HCl ER (XL) 150 MG Atorvastati n Calcium 20 MG Atorvastati n Calcium 20 MG No Atorvastat in Calcium 20 MG metFORMIN HCl ER 500 MG metFORMIN HCl ER 500 MG No metFORMIN HCl ER 500 MG traZODone HCl 100 MG traZODone HCl 100 MG No 1{table t_at_be dtime_a s_neede d} QD traZODone HCl 100 MG Famotidine 40 MG Famotidine 40 MG No Famotidine 40 MG Divalproex Sodium ER 500 MG Divalproex Sodium ER 500 MG No Divalproex Sodium ER 500 MG busPIRone HCl 15 MG busPIRone HCl 15 MG No 1{table t} TID busPIRone HCl 15 MG Trulicity 3 MG/0.5ML Trulicity 3 MG/0.5ML No Trulicity 3 MG/0.5ML Levothyroxi ne Sodium 50 MCG Levothyroxi ne Sodium 50 MCG No Levothyrox ine Sodium 50 MCG Atorvastati n Calcium 20 MG Atorvastati n Calcium 20 MG No Atorvastat in Calcium 20 MG buPROPion HCl ER (XL) 150 MG buPROPion HCl ER (XL) 150 MG No buPROPion HCl ER (XL) 150 MG metFORMIN HCl ER 500 MG metFORMIN HCl ER 500 MG No metFORMIN HCl ER 500 MG traZODone HCl 100 MG traZODone HCl 100 MG No 1{table t_at_be dtime_a s_neede d} QD traZODone HCl 100 MG Famotidine 40 MG Famotidine 40 MG No Famotidine 40 MG Divalproex Sodium ER 500 MG Divalproex Sodium ER 500 MG No Divalproex Sodium ER 500 MG busPIRone HCl 15 MG busPIRone HCl 15 MG No 1{table t} TID busPIRone HCl 15 MG Trulicity 3 MG/0.5ML Trulicity 3 MG/0.5ML No Trulicity 3 MG/0.5ML Levothyroxi ne Sodium 50 MCG Levothyroxi ne Sodium 50 MCG No Levothyrox ine Sodium 50 MCG Atorvastati n Calcium 20 MG Atorvastati n Calcium 20 MG No Atorvastat in Calcium 20 MG buPROPion HCl ER (XL) 150 MG buPROPion HCl ER (XL) 150 MG No buPROPion HCl ER (XL) 150 MG Lisinopril 5 MG Lisinopril 5 MG No Lisinopril 5 MG metFORMIN HCl ER 500 MG metFORMIN HCl ER 500 MG No metFORMIN HCl ER 500 MG traZODone HCl 100 MG traZODone HCl 100 MG No 1{table t_at_be dtime_a s_neede d} QD traZODone HCl 100 MG Famotidine 40 MG Famotidine 40 MG No Famotidine 40 MG Divalproex Sodium ER 500 MG Divalproex Sodium ER 500 MG No Divalproex Sodium ER 500 MG busPIRone HCl 15 MG busPIRone HCl 15 MG No 1{table t} TID busPIRone HCl 15 MG Trulicity 3 MG/0.5ML Trulicity 3 MG/0.5ML No Trulicity 3 MG/0.5ML Levothyroxi ne Sodium 50 MCG Levothyroxi ne Sodium 50 MCG No Levothyrox ine Sodium 50 MCG Atorvastati n Calcium 20 MG Atorvastati n Calcium 20 MG No Atorvastat in Calcium 20 MG buPROPion HCl ER (XL) 150 MG buPROPion HCl ER (XL) 150 MG No buPROPion HCl ER (XL) 150 MG Lisinopril 5 MG Lisinopril 5 MG No Lisinopril 5 MG metFORMIN HCl ER 500 MG metFORMIN HCl ER 500 MG No metFORMIN HCl ER 500 MG traZODone HCl 100 MG traZODone HCl 100 MG No 1{table t_at_be dtime_a s_neede d} QD traZODone HCl 100 MG Famotidine 40 MG Famotidine 40 MG No Famotidine 40 MG Divalproex Sodium ER 500 MG Divalproex Sodium ER 500 MG No Divalproex Sodium ER 500 MG busPIRone HCl 15 MG busPIRone HCl 15 MG No 1{table t} TID busPIRone HCl 15 MG Trulicity 3 MG/0.5ML Trulicity 3 MG/0.5ML No Trulicity 3 MG/0.5ML Levothyroxi ne Sodium 50 MCG Levothyroxi ne Sodium 50 MCG No Levothyrox ine Sodium 50 MCG Atorvastati n Calcium 20 MG Atorvastati n Calcium 20 MG No Atorvastat in Calcium 20 MG buPROPion HCl ER (XL) 150 MG buPROPion HCl ER (XL) 150 MG No buPROPion HCl ER (XL) 150 MG Lisinopril 5 MG Lisinopril 5 MG No Lisinopril 5 MG metFORMIN HCl ER 500 MG metFORMIN HCl ER 500 MG No metFORMIN HCl ER 500 MG buPROPion HCl ER (XL) 150 MG buPROPion HCl ER (XL) 150 MG No buPROPion HCl ER (XL) 150 MG Famotidine 40 MG Famotidine 40 MG No BID Famotidine 40 MG Atorvastati n Calcium 20 MG Atorvastati n Calcium 20 MG No Atorvastat in Calcium 20 MG busPIRone HCl 15 MG busPIRone HCl 15 MG No 1{table t} TID busPIRone HCl 15 MG Lisinopril 2.5 MG Lisinopril 2.5 MG No 1{table t} QD Lisinopril 2.5 MG traZODone HCl 100 MG traZODone HCl 100 MG No 1{table t_at_be dtime_a s_neede d} QD traZODone HCl 100 MG metFORMIN HCl ER 500 MG metFORMIN HCl ER 500 MG No metFORMIN HCl ER 500 MG Invokana 300 MG Invokana 300 MG No QD Invokana 300 MG Divalproex Sodium ER 500 MG Divalproex Sodium ER 500 MG No Divalproex Sodium ER 500 MG Atorvastati n Calcium 20 MG Atorvastati n Calcium 20 MG No Atorvastat in Calcium 20 MG Divalproex Sodium ER 500 MG Divalproex Sodium ER 500 MG No Divalproex Sodium ER 500 MG metFORMIN HCl ER 500 MG metFORMIN HCl ER 500 MG No metFORMIN HCl ER 500 MG Invokana 300 MG Invokana 300 MG No QD Invokana 300 MG traZODone HCl 100 MG traZODone HCl 100 MG No 1{table t_at_be dtime_a s_neede d} QD traZODone HCl 100 MG Famotidine 40 MG Famotidine 40 MG No Famotidine 40 MG busPIRone HCl 15 MG busPIRone HCl 15 MG No 1{table t} TID busPIRone HCl 15 MG buPROPion HCl ER (XL) 150 MG buPROPion HCl ER (XL) 150 MG No buPROPion HCl ER (XL) 150 MG Immunizations Ordered Immunization Name Filled Immunization Name Date Status Comments Source Influenza Virus Vaccine Quad IM, Preserv and ABX Free 6 MO-64 YRS 2022-03-30 00:00:00 Completed [facility] Influenza Virus Vaccine Quad IM, Preserv and ABX Free 6 MO-64 YRS 2022-03-30 00:00:00 Completed [facility] Influenza Virus Vaccine Quad IM, Preserv and ABX Free 6 MO-64 YRS 2022-03-30 00:00:00 Completed [facility] Influenza Virus Vaccine Quad IM, Preserv and ABX Free 6 MO-64 YRS 2022-03-30 00:00:00 Completed [facility] SARS-COV-2 COVID-19 PFIZER VACCINE 2021-08-06 00:00:00 Completed [facility] SARS-COV-2 COVID-19 PFIZER VACCINE 2021-08-06 00:00:00 Completed [facility] SARS-COV-2 COVID-19 PFIZER VACCINE 2021-08-06 00:00:00 Completed [facility] SARS-COV-2 COVID-19 PFIZER VACCINE 2021-08-06 00:00:00 Completed [facility] Flucelvax - multidose vial Flucelvax - multidose vial 2021-04-12 14:30:00 Completed [facility] Flucelvax - multidose vial Flucelvax - multidose vial 2021-04-12 14:30:00 Completed [facility] Flucelvax - multidose vial Flucelvax - multidose vial 2021-04-12 14:30:00 Completed [facility] Influenza Virus Vaccine Quad IM, Preserv and ABX Free 6 MO-64 YRS 2021-03-29 00:00:00 Completed [facility] Influenza Virus Vaccine Quad IM, Preserv and ABX Free 6 MO-64 YRS 2021-03-29 00:00:00 Completed [facility] Influenza Virus Vaccine Quad IM, Preserv and ABX Free 6 MO-64 YRS 2021-03-29 00:00:00 Completed [facility] Influenza Virus Vaccine Quad IM, Preserv and ABX Free 6 MO-64 YRS 2021-03-29 00:00:00 Completed [facility] Influenza Virus Vaccine Quad IM, Preserv and ABX Free 6 MO-64 YRS 2021-03-29 00:00:00 Completed [facility] Influenza Virus Vaccine Quad IM, Preserv and ABX Free 6 MO-64 YRS 2021-03-29 00:00:00 Completed [facility] SARS-COV-2 COVID-19 PFIZER VACCINE 2020-08-22 00:00:00 Completed [facility] SARS-COV-2 COVID-19 PFIZER VACCINE 2020-08-22 00:00:00 Completed [facility] SARS-COV-2 COVID-19 PFIZER VACCINE 2020-08-22 00:00:00 Completed [facility] SARS-COV-2 COVID-19 PFIZER VACCINE 2020-08-22 00:00:00 Completed [facility] SARS-COV-2 COVID-19 PFIZER VACCINE 2020-08-22 00:00:00 Completed [facility] SARS-COV-2 COVID-19 PFIZER VACCINE 2020-08-22 00:00:00 Completed [facility] SARS-COV-2 COVID-19 PFIZER VACCINE 2020-08-01 00:00:00 Completed [facility] SARS-COV-2 COVID-19 PFIZER VACCINE 2020-08-01 00:00:00 Completed [facility] SARS-COV-2 COVID-19 PFIZER VACCINE 2020-08-01 00:00:00 Completed [facility] SARS-COV-2 COVID-19 PFIZER VACCINE 2020-08-01 00:00:00 Completed [facility] SARS-COV-2 COVID-19 PFIZER VACCINE 2020-08-01 00:00:00 Completed [facility] SARS-COV-2 COVID-19 PFIZER VACCINE 2020-08-01 00:00:00 Completed [facility] Influenza Virus Vaccine Recomb Quad IM, Preserv and ABX Free 18-64 2020-04-07 00:00:00 Completed [facility] Influenza Virus Vaccine Recomb Quad IM, Preserv and ABX Free 18-64 2020-04-07 00:00:00 Completed [facility] Influenza Virus Vaccine Recomb Quad IM, Preserv and ABX Free 18-64 2020-04-07 00:00:00 Completed [facility] Influenza Virus Vaccine Recomb Quad IM, Preserv and ABX Free 18-64 2020-04-07 00:00:00 Completed [facility] Influenza Virus Vaccine Recomb Quad IM, Preserv and ABX Free 18-64 2020-04-07 00:00:00 Completed [facility] Influenza Virus Vaccine Recomb Quad IM, Preserv and ABX Free 18-64 2020-04-07 00:00:00 Completed [facility] Adacel (Tdap) Adacel (Tdap) 2019-03-06 14:31:00 Completed [facility] Adacel (Tdap) Adacel (Tdap) 2019-03-06 14:31:00 Completed [facility] Adacel (Tdap) Adacel (Tdap) 2019-03-06 14:31:00 Completed [facility] TDAP 2019-03-06 00:00:00 Completed [facility] Influenza Virus Vaccine 2019-03-06 00:00:00 Completed [facility] Pneumococcal Polysaccharide, PPSV23 (PNEUMOVAX) 2019-03-06 00:00:00 Completed [facility] Influenza Virus Vaccine Recomb Quad IM, Preserv and ABX Free 18-64 YRS 2019-03-06 00:00:00 Completed [facility] TDAP 2019-03-06 00:00:00 Completed [facility] Influenza Virus Vaccine 2019-03-06 00:00:00 Completed [facility] Pneumococcal Polysaccharide, PPSV23 (PNEUMOVAX) 2019-03-06 00:00:00 Completed [facility] Influenza Virus Vaccine Recomb Quad IM, Preserv and ABX Free 18-64 YRS 2019-03-06 00:00:00 Completed [facility] TDAP 2019-03-06 00:00:00 Completed [facility] Influenza Virus Vaccine 2019-03-06 00:00:00 Completed [facility] Pneumococcal Polysaccharide, PPSV23 (PNEUMOVAX) 2019-03-06 00:00:00 Completed [facility] Influenza Virus Vaccine Recomb Quad IM, Preserv and ABX Free 18-64 YRS 2019-03-06 00:00:00 Completed [facility] TDAP 2019-03-06 00:00:00 Completed [facility] Influenza Virus Vaccine 2019-03-06 00:00:00 Completed [facility] Pneumococcal Polysaccharide, PPSV23 (PNEUMOVAX) 2019-03-06 00:00:00 Completed [facility] Influenza Virus Vaccine Recomb Quad IM, Preserv and ABX Free 18-64 YRS 2019-03-06 00:00:00 Completed [facility] TDAP 2019-03-06 00:00:00 Completed [facility] Influenza Virus Vaccine 2019-03-06 00:00:00 Completed [facility] Pneumococcal Polysaccharide, PPSV23 (PNEUMOVAX) 2019-03-06 00:00:00 Completed [facility] Influenza Virus Vaccine Recomb Quad IM, Preserv and ABX Free 18-64 YRS 2019-03-06 00:00:00 Completed [facility] TDAP 2019-03-06 00:00:00 Completed [facility] Influenza Virus Vaccine 2019-03-06 00:00:00 Completed [facility] Pneumococcal Polysaccharide, PPSV23 (PNEUMOVAX) 2019-03-06 00:00:00 Completed [facility] Influenza Virus Vaccine Recomb Quad IM, Preserv and ABX Free 18-64 YRS 2019-03-06 00:00:00 Completed [facility] Influenza Virus Vaccine Quad IM Multi-dose 6+ MO 2018-03-27 00:00:00 Completed [facility] Influenza Virus Vaccine Quad IM Multi-dose 6+ MO 2018-03-27 00:00:00 Completed [facility] Influenza Virus Vaccine Quad IM Multi-dose 6+ MO 2018-03-27 00:00:00 Completed [facility] Influenza Virus Vaccine Quad IM Multi-dose 6+ MO 2018-03-27 00:00:00 Completed [facility] Influenza Virus Vaccine Quad IM Multi-dose 6+ MO 2018-03-27 00:00:00 Completed [facility] Influenza Virus Vaccine Quad IM Multi-dose 6+ MO 2018-03-27 00:00:00 Completed [facility] Influenza Virus Vaccine Quad IM Multi-dose 6+ MO Unknown Completed [facility] TDAP Unknown Completed [facility] Influenza Virus Vaccine Unknown Completed [facility] Pneumococcal Polysaccharide, PPSV23 (PNEUMOVAX) Unknown Completed [facility] Influenza Virus Vaccine Recomb Quad IM, Preserv and ABX Free 18-64 YRS Unknown [facility] [facility] Recomb Quad IM, Preserv and ABX Free 18-64 YRS Unknown Completed [facility] SARS-COV-2 COVID-19 PFIZER VACCINE Unknown Completed [facility] Influenza Virus Vaccine Quad IM, Preserv and ABX Free 6 MO-64 YRS (FLUCELVAX) Unknown Completed [facility] Influenza Virus Vaccine Quad IM Multi-dose 6+ MO Unknown Completed [facility] TDAP Unknown Completed [facility] Influenza Virus Vaccine Unknown Completed [facility] Pneumococcal Polysaccharide, PPSV23 (PNEUMOVAX) Unknown Completed [facility] Influenza Virus Vaccine Recomb Quad IM, Preserv and ABX Free 18-64 YRS Unknown Completed [facility] Influenza Virus Vaccine Recomb Quad IM, Preserv and ABX Free 18-64 YRS Unknown Completed [facility] SARS-COV-2 COVID-19 PFIZER VACCINE Unknown Completed [facility] Influenza Virus Vaccine Quad IM, Preserv and ABX Free 6 MO-64 YRS (FLUCELVAX) Unknown Completed [facility] Influenza Virus Vaccine Quad IM Multi-dose 6+ MO Unknown Completed [facility] TDAP Unknown Completed [facility] Influenza Virus Vaccine Unknown Completed [facility] Pneumococcal Polysaccharide, PPSV23 (PNEUMOVAX) Unknown Completed [facility] Influenza Virus Vaccine Recomb Quad IM, Preserv and ABX Free 18-64 YRS Unknown Completed [facility] Influenza Virus Vaccine Recomb Quad IM, Preserv and ABX Free 18-64 YRS Unknown Completed [facility] Influenza Virus Vaccine Quad IM Multi-dose 6+ MO Unknown Completed [facility] TDAP Unknown Completed [facility] Influenza Virus Vaccine Unknown Completed [facility] Pneumococcal Polysaccharide, PPSV23 (PNEUMOVAX) Unknown Completed [facility] Influenza Virus Vaccine Recomb Quad IM, Preserv and ABX Free 18-64 YRS Unknown Completed [facility] Influenza Virus Vaccine Recomb Quad IM, Preserv and ABX Free 18-64 YRS Unknown Completed [facility] SARS-COV-2 COVID-19 PFIZER VACCINE Unknown Completed [facility] Influenza Virus Vaccine Quad IM, Preserv and ABX Free 6 MO-64 YRS (FLUCELVAX) Unknown Completed [facility] Influenza Virus Vaccine Quad IM Multi-dose 6+ MO Unknown Completed [facility] TDAP Unknown Completed [facility] Influenza Virus Vaccine Unknown Completed [facility] Pneumococcal Polysaccharide, PPSV23 (PNEUMOVAX) Unknown Completed [facility] Influenza Virus Vaccine Recomb Quad IM, Preserv and ABX Free 18-64 YRS Unknown Completed [facility] Influenza Virus Vaccine Recomb Quad IM, Preserv and ABX Free 18-64 YRS Unknown Completed [facility] SARS-COV-2 COVID-19 PFIZER VACCINE Unknown Completed [facility] Influenza Virus Vaccine Quad IM, Preserv and ABX Free 6 MO-64 YRS (FLUCELVAX) Unknown Completed [facility] Influenza Virus Vaccine Quad IM Multi-dose 6+ MO Unknown Completed [facility] TDAP Unknown Completed [facility] Influenza Virus Vaccine Unknown Completed [facility] Pneumococcal Polysaccharide, PPSV23 (PNEUMOVAX) Unknown Completed [facility] Influenza Virus Vaccine Recomb Quad IM, Preserv and ABX Free 18-64 YRS Unknown Completed [facility] Influenza Virus Vaccine Recomb Quad IM, Preserv and ABX Free 18-64 YRS Unknown Completed [facility] SARS-COV-2 COVID-19 PFIZER VACCINE Unknown Completed [facility] Influenza Virus Vaccine Quad IM, Preserv and ABX Free 6 MO-64 YRS (FLUCELVAX) Unknown Completed [facility] Influenza Virus Vaccine Quad IM Multi-dose 6+ MO Unknown Completed [facility] TDAP Unknown Completed [facility] Influenza Virus Vaccine Unknown Completed [facility] Pneumococcal Polysaccharide, PPSV23 (PNEUMOVAX) Unknown Completed [facility] Influenza Virus Vaccine Recomb Quad IM, Preserv and ABX Free 18-64 YRS Unknown Completed [facility] Influenza Virus Vaccine Recomb Quad IM, Preserv and ABX Free 18-64 YRS Unknown Completed [facility] SARS-COV-2 COVID-19 PFIZER VACCINE Unknown Completed [facility] Influenza Virus Vaccine Quad IM, Preserv and ABX Free 6 MO-64 YRS (FLUCELVAX) Unknown Completed [facility] Influenza Virus Vaccine Quad IM Multi-dose 6+ MO Unknown Completed [facility] TDAP Unknown Completed [facility] Influenza Virus Vaccine Unknown Completed [facility] Pneumococcal Polysaccharide, PPSV23 (PNEUMOVAX) Unknown Completed [facility] Influenza Virus Vaccine Recomb Quad IM, Preserv and ABX Free 18-64 YRS Unknown Completed [facility] Influenza Virus Vaccine Recomb Quad IM, Preserv and ABX Free 18-64 YRS Unknown Completed [facility] SARS-COV-2 COVID-19 PFIZER VACCINE Unknown Completed [facility] Influenza Virus Vaccine Quad IM, Preserv and ABX Free 6 MO-64 YRS (FLUCELVAX) Unknown Completed [facility] Influenza Virus Vaccine Quad IM Multi-dose 6+ MO Unknown Completed [facility] TDAP Unknown Completed [facility] Influenza Virus Vaccine Unknown Completed [facility] Pneumococcal Polysaccharide, PPSV23 (PNEUMOVAX) Unknown Completed [facility] Influenza Virus Vaccine Recomb Quad IM, Preserv and ABX Free 18-64 YRS Unknown Completed [facility] Influenza Virus Vaccine Recomb Quad IM, Preserv and ABX Free 18-64 YRS Unknown Completed [facility] SARS-COV-2 COVID-19 PFIZER VACCINE Unknown Completed [facility] Influenza Virus Vaccine Quad IM, Preserv and ABX Free 6 MO-64 YRS (FLUCELVAX) Unknown Completed [facility] Influenza Virus Vaccine Quad IM Multi-dose 6+ MO Unknown Completed [facility] TDAP Unknown Completed [facility] Influenza Virus Vaccine Unknown Completed [facility] Pneumococcal Polysaccharide, PPSV23 (PNEUMOVAX) Unknown Completed [facility] Influenza Virus Vaccine Recomb Quad IM, Preserv and ABX Free 18-64 YRS Unknown Completed [facility] Influenza Virus Vaccine Recomb Quad IM, Preserv and ABX Free 18-64 YRS Unknown Completed [facility] SARS-COV-2 COVID-19 PFIZER VACCINE Unknown Completed [facility] Influenza Virus Vaccine Quad IM, Preserv and ABX Free 6 MO-64 YRS (FLUCELVAX) Unknown Completed [facility] Influenza Virus Vaccine Quad IM Multi-dose 6+ MO Unknown Completed [facility] TDAP Unknown Completed [facility] Influenza Virus Vaccine Unknown Completed [facility] Pneumococcal Polysaccharide, PPSV23 (PNEUMOVAX) Unknown Completed [facility] Influenza Virus Vaccine Recomb Quad IM, Preserv and ABX Free 18-64 YRS Unknown Completed [facility] Influenza Virus Vaccine Recomb Quad IM, Preserv and ABX Free 18-64 YRS Unknown Completed [facility] SARS-COV-2 COVID-19 PFIZER VACCINE Unknown Completed [facility] Influenza Virus Vaccine Quad IM, Preserv and ABX Free 6 MO-64 YRS (FLUCELVAX) Unknown Completed [facility] Influenza Virus Vaccine Quad IM Multi-dose 6+ MO Unknown Completed [facility] TDAP Unknown Completed [facility] Influenza Virus Vaccine Unknown Completed [facility] Pneumococcal Polysaccharide, PPSV23 (PNEUMOVAX) Unknown Completed [facility] Influenza Virus Vaccine Recomb Quad IM, Preserv and ABX Free 18-64 YRS Unknown Completed [facility] Influenza Virus Vaccine Recomb Quad IM, Preserv and ABX Free 18-64 YRS Unknown Completed [facility] SARS-COV-2 COVID-19 PFIZER VACCINE Unknown Completed [facility] Influenza Virus Vaccine Quad IM, Preserv and ABX Free 6 MO-64 YRS (FLUCELVAX) Unknown Completed [facility] Influenza Virus Vaccine Quad IM Multi-dose 6+ MO Unknown Completed [facility] TDAP Unknown Completed [facility] Influenza Virus Vaccine Unknown Completed [facility] Pneumococcal Polysaccharide, PPSV23 (PNEUMOVAX) Unknown Completed [facility] Influenza Virus Vaccine Recomb Quad IM, Preserv and ABX Free 18-64 YRS Unknown Completed [facility] Influenza Virus Vaccine Recomb Quad IM, Preserv and ABX Free 18-64 YRS Unknown Completed [facility] SARS-COV-2 COVID-19 PFIZER VACCINE Unknown Completed [facility] Influenza Virus Vaccine Quad IM, Preserv and ABX Free 6 MO-64 YRS (FLUCELVAX) Unknown Completed [facility] Influenza Virus Vaccine Quad IM Multi-dose 6+ MO Unknown Completed [facility] TDAP Unknown Completed [facility] Influenza Virus Vaccine Unknown Completed [facility] Pneumococcal Polysaccharide, PPSV23 (PNEUMOVAX) Unknown Completed [facility] Influenza Virus Vaccine Recomb Quad IM, Preserv and ABX Free 18-64 YRS Unknown Completed [facility] Influenza Virus Vaccine Recomb Quad IM, Preserv and ABX Free 18-64 YRS Unknown Completed [facility] SARS-COV-2 COVID-19 PFIZER VACCINE Unknown Completed [facility] Influenza Virus Vaccine Quad IM, Preserv and ABX Free 6 MO-64 YRS (FLUCELVAX) Unknown Completed [facility] Influenza Virus Vaccine Quad IM Multi-dose 6+ MO Unknown Completed [facility] TDAP Unknown Completed [facility] Influenza Virus Vaccine Unknown Completed [facility] Pneumococcal Polysaccharide, PPSV23 (PNEUMOVAX) Unknown Completed [facility] Influenza Virus Vaccine Recomb Quad IM, Preserv and ABX Free 18-64 YRS Unknown Completed [facility] Influenza Virus Vaccine Recomb Quad IM, Preserv and ABX Free 18-64 YRS Unknown Completed [facility] SARS-COV-2 COVID-19 PFIZER VACCINE Unknown Completed [facility] Influenza Virus Vaccine Quad IM, Preserv and ABX Free 6 MO-64 YRS (FLUCELVAX) Unknown Completed [facility] Influenza Virus Vaccine Quad IM Multi-dose 6+ MO Unknown Completed [facility] TDAP Unknown Completed [facility] Influenza Virus Vaccine Unknown Completed [facility] Pneumococcal Polysaccharide, PPSV23 (PNEUMOVAX) Unknown Completed [facility] Influenza Virus Vaccine Recomb Quad IM, Preserv and ABX Free 18-64 YRS Unknown Completed [facility] Influenza Virus Vaccine Recomb Quad IM, Preserv and ABX Free 18-64 YRS Unknown Completed [facility] SARS-COV-2 COVID-19 PFIZER VACCINE Unknown Completed [facility] Influenza Virus Vaccine Quad IM, Preserv and ABX Free 6 MO-64 YRS (FLUCELVAX) Unknown Completed [facility] Influenza Virus Vaccine Quad IM Multi-dose 6+ MO Unknown Completed [facility] TDAP Unknown Completed [facility] Influenza Virus Vaccine Unknown Completed [facility] Pneumococcal Polysaccharide, PPSV23 (PNEUMOVAX) Unknown Completed [facility] Influenza Virus Vaccine Recomb Quad IM, Preserv and ABX Free 18-64 YRS Unknown Completed [facility] Influenza Virus Vaccine Recomb Quad IM, Preserv and ABX Free 18-64 YRS Unknown Completed [facility] SARS-COV-2 COVID-19 PFIZER VACCINE Unknown Completed [facility] Influenza Virus Vaccine Quad IM, Preserv and ABX Free 6 MO-64 YRS (FLUCELVAX) Unknown Completed [facility] Influenza Virus Vaccine Quad IM Multi-dose 6+ MO Unknown Completed [facility] TDAP Unknown Completed [facility] Influenza Virus Vaccine Unknown Completed [facility] Pneumococcal Polysaccharide, PPSV23 (PNEUMOVAX) Unknown Completed [facility] Influenza Virus Vaccine Recomb Quad IM, Preserv and ABX Free 18-64 YRS Unknown Completed [facility] Influenza Virus Vaccine Recomb Quad IM, Preserv and ABX Free 18-64 YRS Unknown Completed [facility] SARS-COV-2 COVID-19 PFIZER VACCINE Unknown Completed [facility] Influenza Virus Vaccine Quad IM, Preserv and ABX Free 6 MO-64 YRS (FLUCELVAX) Unknown Completed [facility] Influenza Virus Vaccine Quad IM Multi-dose 6+ MO Unknown Completed [facility] TDAP Unknown Completed [facility] Influenza Virus Vaccine Unknown Completed [facility] Pneumococcal Polysaccharide, PPSV23 (PNEUMOVAX) Unknown Completed [facility] Influenza Virus Vaccine Recomb Quad IM, Preserv and ABX Free 18-64 YRS Unknown Completed [facility] Influenza Virus Vaccine Recomb Quad IM, Preserv and ABX Free 18-64 YRS Unknown Completed [facility] SARS-COV-2 COVID-19 PFIZER VACCINE Unknown Completed [facility] Influenza Virus Vaccine Quad IM, Preserv and ABX Free 6 MO-64 YRS (FLUCELVAX) Unknown Completed [facility] Influenza Virus Vaccine Quad IM Multi-dose 6+ MO Unknown Completed [facility] TDAP Unknown Completed [facility] Influenza Virus Vaccine Unknown Completed [facility] Pneumococcal Polysaccharide, PPSV23 (PNEUMOVAX) Unknown Completed [facility] Influenza Virus Vaccine Recomb Quad IM, Preserv and ABX Free 18-64 YRS Unknown Completed [facility] Influenza Virus Vaccine Recomb Quad IM, Preserv and ABX Free 18-64 YRS Unknown Completed [facility] SARS-COV-2 COVID-19 PFIZER VACCINE Unknown Completed [facility] Influenza Virus Vaccine Quad IM, Preserv and ABX Free 6 MO-64 YRS (FLUCELVAX) Unknown Completed [facility] Influenza Virus Vaccine Quad IM Multi-dose 6+ MO Unknown Completed [facility] TDAP Unknown Completed [facility] Influenza Virus Vaccine Unknown Completed [facility] Pneumococcal Polysaccharide, PPSV23 (PNEUMOVAX) Unknown Completed [facility] Influenza Virus Vaccine Recomb Quad IM, Preserv and ABX Free 18-64 YRS Unknown Completed [facility] Influenza Virus Vaccine Recomb Quad IM, Preserv and ABX Free 18-64 YRS Unknown Completed [facility] SARS-COV-2 COVID-19 PFIZER VACCINE Unknown Completed [facility] Influenza Virus Vaccine Quad IM, Preserv and ABX Free 6 MO-64 YRS (FLUCELVAX) Unknown Completed [facility] Influenza Virus Vaccine Quad IM Multi-dose 6+ MO Unknown Completed [facility] TDAP Unknown Completed [facility] Influenza Virus Vaccine Unknown Completed [facility] Pneumococcal Polysaccharide, PPSV23 (PNEUMOVAX) Unknown Completed [facility] Influenza Virus Vaccine Recomb Quad IM, Preserv and ABX Free 18-64 YRS Unknown Completed [facility] Influenza Virus Vaccine Recomb Quad IM, Preserv and ABX Free 18-64 YRS Unknown Completed [facility] SARS-COV-2 COVID-19 PFIZER VACCINE Unknown Completed [facility] Influenza Virus Vaccine Quad IM, Preserv and ABX Free 6 MO-64 YRS (FLUCELVAX) Unknown Completed [facility] Influenza Virus Vaccine Quad IM Multi-dose 6+ MO Unknown Completed [facility] TDAP Unknown Completed [facility] Influenza Virus Vaccine Unknown Completed [facility] Pneumococcal Polysaccharide, PPSV23 (PNEUMOVAX) Unknown Completed [facility] Influenza Virus Vaccine Recomb Quad IM, Preserv and ABX Free 18-64 YRS Unknown Completed [facility] Influenza Virus Vaccine Recomb Quad IM, Preserv and ABX Free 18-64 YRS Unknown Completed [facility] SARS-COV-2 COVID-19 PFIZER VACCINE Unknown Completed [facility] Influenza Virus Vaccine Quad IM, Preserv and ABX Free 6 MO-64 YRS (FLUCELVAX) Unknown Completed [facility] Influenza Virus Vaccine Quad IM Multi-dose 6+ MO Unknown Completed [facility] TDAP Unknown Completed [facility] Influenza Virus Vaccine Unknown Completed [facility] Pneumococcal Polysaccharide, PPSV23 (PNEUMOVAX) Unknown Completed [facility] Influenza Virus Vaccine Recomb Quad IM, Preserv and ABX Free 18-64 YRS Unknown Completed [facility] Influenza Virus Vaccine Recomb Quad IM, Preserv and ABX Free 18-64 YRS Unknown Completed [facility] SARS-COV-2 COVID-19 PFIZER VACCINE Unknown Completed [facility] Influenza Virus Vaccine Quad IM, Preserv and ABX Free 6 MO-64 YRS (FLUCELVAX) Unknown Completed [facility] Influenza Virus Vaccine Quad IM Multi-dose 6+ MO Unknown Completed [facility] TDAP Unknown Completed [facility] Influenza Virus Vaccine Unknown Completed [facility] Pneumococcal Polysaccharide, PPSV23 (PNEUMOVAX) Unknown Completed [facility] Influenza Virus Vaccine Recomb Quad IM, Preserv and ABX Free 18-64 YRS Unknown Completed [facility] Influenza Virus Vaccine Recomb Quad IM, Preserv and ABX Free 18-64 YRS Unknown Completed [facility] SARS-COV-2 COVID-19 PFIZER VACCINE Unknown Completed [facility] Influenza Virus Vaccine Quad IM, Preserv and ABX Free 6 MO-64 YRS (FLUCELVAX) Unknown Completed [facility] Influenza Virus Vaccine Quad IM Multi-dose 6+ MO Unknown Completed [facility] TDAP Unknown Completed [facility] Influenza Virus Vaccine Unknown Completed [facility] Pneumococcal Polysaccharide, PPSV23 (PNEUMOVAX) Unknown Completed [facility] Influenza Virus Vaccine Recomb Quad IM, Preserv and ABX Free 18-64 YRS Unknown Completed [facility] Influenza Virus Vaccine Recomb Quad IM, Preserv and ABX Free 18-64 YRS Unknown Completed [facility] SARS-COV-2 COVID-19 PFIZER VACCINE Unknown Completed [facility] Influenza Virus Vaccine Quad IM, Preserv and ABX Free 6 MO-64 YRS (FLUCELVAX) Unknown Completed [facility] Influenza Virus Vaccine Quad IM Multi-dose 6+ MO Unknown Completed [facility] TDAP Unknown Completed [facility] Influenza Virus Vaccine Unknown Completed [facility] Pneumococcal Polysaccharide, PPSV23 (PNEUMOVAX) Unknown Completed [facility] Influenza Virus Vaccine Recomb Quad IM, Preserv and ABX Free 18-64 YRS Unknown Completed [facility] Influenza Virus Vaccine Recomb Quad IM, Preserv and ABX Free 18-64 YRS Unknown Completed [facility] SARS-COV-2 COVID-19 PFIZER VACCINE Unknown Completed [facility] Influenza Virus Vaccine Quad IM, Preserv and ABX Free 6 MO-64 YRS (FLUCELVAX) Unknown Completed [facility] Influenza Virus Vaccine Quad IM Multi-dose 6+ MO Unknown Completed [facility] TDAP Unknown Completed [facility] Influenza Virus Vaccine Unknown Completed [facility] Pneumococcal Polysaccharide, PPSV23 (PNEUMOVAX) Unknown Completed [facility] Influenza Virus Vaccine Recomb Quad IM, Preserv and ABX Free 18-64 YRS Unknown Completed [facility] Influenza Virus Vaccine Recomb Quad IM, Preserv and ABX Free 18-64 YRS Unknown Completed [facility] SARS-COV-2 COVID-19 PFIZER VACCINE Unknown Completed [facility] Influenza Virus Vaccine Quad IM, Preserv and ABX Free 6 MO-64 YRS (FLUCELVAX) Unknown Completed [facility] Influenza Virus Vaccine Quad IM Multi-dose 6+ MO Unknown Completed [facility] TDAP Unknown Completed [facility] Influenza Virus Vaccine Unknown Completed [facility] Pneumococcal Polysaccharide, PPSV23 (PNEUMOVAX) Unknown Completed [facility] Influenza Virus Vaccine Recomb Quad IM, Preserv and ABX Free 18-64 YRS Unknown Completed [facility] Influenza Virus Vaccine Recomb Quad IM, Preserv and ABX Free 18-64 YRS Unknown Completed [facility] SARS-COV-2 COVID-19 PFIZER VACCINE Unknown Completed [facility] Influenza Virus Vaccine Quad IM, Preserv and ABX Free 6 MO-64 YRS (FLUCELVAX) Unknown Completed [facility] Influenza Virus Vaccine Quad IM Multi-dose 6+ MO Unknown Completed [facility] TDAP Unknown Completed [facility] Influenza Virus Vaccine Unknown Completed [facility] Pneumococcal Polysaccharide, PPSV23 (PNEUMOVAX) Unknown Completed [facility] Influenza Virus Vaccine Recomb Quad IM, Preserv and ABX Free 18-64 YRS Unknown Completed [facility] Influenza Virus Vaccine Recomb Quad IM, Preserv and ABX Free 18-64 YRS Unknown Completed [facility] SARS-COV-2 COVID-19 PFIZER VACCINE Unknown Completed [facility] Influenza Virus Vaccine Quad IM, Preserv and ABX Free 6 MO-64 YRS (FLUCELVAX) Unknown Completed [facility] Influenza Virus Vaccine Quad IM Multi-dose 6+ MO Unknown Completed [facility] TDAP Unknown Completed [facility] Influenza Virus Vaccine Unknown Completed [facility] Pneumococcal Polysaccharide, PPSV23 (PNEUMOVAX) Unknown Completed [facility] Influenza Virus Vaccine Recomb Quad IM, Preserv and ABX Free 18-64 YRS Unknown Completed [facility] Influenza Virus Vaccine Recomb Quad IM, Preserv and ABX Free 18-64 YRS Unknown Completed [facility] SARS-COV-2 COVID-19 PFIZER VACCINE Unknown Completed [facility] Influenza Virus Vaccine Quad IM, Preserv and ABX Free 6 MO-64 YRS (FLUCELVAX) Unknown Completed [facility] Influenza Virus Vaccine Quad IM Multi-dose 6+ MO Unknown Completed [facility] TDAP Unknown Completed [facility] Influenza Virus Vaccine Unknown Completed [facility] Pneumococcal Polysaccharide, PPSV23 (PNEUMOVAX) Unknown Completed [facility] Influenza Virus Vaccine Recomb Quad IM, Preserv and ABX Free 18-64 YRS Unknown Completed [facility] Influenza Virus Vaccine Recomb Quad IM, Preserv and ABX Free 18-64 YRS Unknown [facility] [facility] SARS-COV-2 COVID-19 PFIZER VACCINE Unknown Completed [facility] Influenza Virus Vaccine Quad IM, Preserv and ABX Free 6 MO-64 YRS (FLUCELVAX) Unknown Completed [facility] Influenza Virus Vaccine Quad IM Multi-dose 6+ MO Unknown Completed [facility] TDAP Unknown Completed [facility] Influenza Virus Vaccine Unknown Completed [facility] Pneumococcal Polysaccharide, PPSV23 (PNEUMOVAX) Unknown Completed [facility] Influenza Virus Vaccine Recomb Quad IM, Preserv and ABX Free 18-64 YRS Unknown Completed [facility] Influenza Virus Vaccine Recomb Quad IM, Preserv and ABX Free 18-64 YRS Unknown Completed [facility] SARS-COV-2 COVID-19 PFIZER VACCINE Unknown Completed [facility] Influenza Virus Vaccine Quad IM, Preserv and ABX Free 6 MO-64 YRS (FLUCELVAX) Unknown Completed [facility] Influenza Virus Vaccine Quad IM Multi-dose 6+ MO Unknown Completed [facility] TDAP Unknown Completed [facility] Influenza Virus Vaccine Unknown Completed [facility] Pneumococcal Polysaccharide, PPSV23 (PNEUMOVAX) Unknown Completed [facility] Influenza Virus Vaccine Recomb Quad IM, Preserv and ABX Free 18-64 YRS Unknown Completed [facility] Influenza Virus Vaccine Recomb Quad IM, Preserv and ABX Free 18-64 YRS Unknown Completed [facility] SARS-COV-2 COVID-19 PFIZER VACCINE Unknown Completed [facility] Influenza Virus Vaccine Quad IM, Preserv and ABX Free 6 MO-64 YRS (FLUCELVAX) Unknown Completed [facility] Influenza Virus Vaccine Quad IM Multi-dose 6+ MO Unknown Completed [facility] TDAP Unknown Completed [facility] Influenza Virus Vaccine Unknown Completed [facility] Pneumococcal Polysaccharide, PPSV23 (PNEUMOVAX) Unknown Completed [facility] Influenza Virus Vaccine Recomb Quad IM, Preserv and ABX Free 18-64 YRS Unknown Completed [facility] Influenza Virus Vaccine Recomb Quad IM, Preserv and ABX Free 18-64 YRS Unknown Completed [facility] SARS-COV-2 COVID-19 PFIZER VACCINE Unknown Completed [facility] Influenza Virus Vaccine Quad IM, Preserv and ABX Free 6 MO-64 YRS (FLUCELVAX) Unknown Completed [facility] Influenza Virus Vaccine Quad IM Multi-dose 6+ MO Unknown Completed [facility] TDAP Unknown Completed [facility] Influenza Virus Vaccine Unknown Completed [facility] Pneumococcal Polysaccharide, PPSV23 (PNEUMOVAX) Unknown Completed [facility] Influenza Virus Vaccine Recomb Quad IM, Preserv and ABX Free 18-64 YRS Unknown Completed [facility] Influenza Virus Vaccine Recomb Quad IM, Preserv and ABX Free 18-64 YRS Unknown Completed [facility] SARS-COV-2 COVID-19 PFIZER VACCINE Unknown Completed [facility] Influenza Virus Vaccine Quad IM, Preserv and ABX Free 6 MO-64 YRS (FLUCELVAX) Unknown Completed [facility] Influenza Virus Vaccine Quad IM Multi-dose 6+ MO Unknown Completed [facility] TDAP Unknown Completed [facility] Influenza Virus Vaccine Unknown Completed [facility] Pneumococcal Polysaccharide, PPSV23 (PNEUMOVAX) Unknown Completed [facility] Influenza Virus Vaccine Recomb Quad IM, Preserv and ABX Free 18-64 YRS Unknown Completed [facility] Influenza Virus Vaccine Recomb Quad IM, Preserv and ABX Free 18-64 YRS Unknown Completed [facility] SARS-COV-2 COVID-19 PFIZER VACCINE Unknown Completed [facility] Influenza Virus Vaccine Quad IM, Preserv and ABX Free 6 MO-64 YRS (FLUCELVAX) Unknown Completed [facility] Influenza Virus Vaccine Quad IM Multi-dose 6+ MO Unknown Completed [facility] TDAP Unknown Completed [facility] Influenza Virus Vaccine Unknown Completed [facility] Pneumococcal Polysaccharide, PPSV23 (PNEUMOVAX) Unknown Completed [facility] Influenza Virus Vaccine Recomb Quad IM, Preserv and ABX Free 18-64 YRS Unknown Completed [facility] Influenza Virus Vaccine Recomb Quad IM, Preserv and ABX Free 18-64 YRS Unknown Completed [facility] SARS-COV-2 COVID-19 PFIZER VACCINE Unknown Completed [facility] Influenza Virus Vaccine Quad IM, Preserv and ABX Free 6 MO-64 YRS (FLUCELVAX) Unknown Completed [facility] Influenza Virus Vaccine Quad IM Multi-dose 6+ MO Unknown Completed [facility] TDAP Unknown Completed [facility] Influenza Virus Vaccine Unknown Completed [facility] Pneumococcal Polysaccharide, PPSV23 (PNEUMOVAX) Unknown Completed [facility] Influenza Virus Vaccine Recomb Quad IM, Preserv and ABX Free 18-64 YRS Unknown Completed [facility] Influenza Virus Vaccine Recomb Quad IM, Preserv and ABX Free 18-64 YRS Unknown Completed [facility] SARS-COV-2 COVID-19 PFIZER VACCINE Unknown Completed [facility] Influenza Virus Vaccine Quad IM, Preserv and ABX Free 6 MO-64 YRS (FLUCELVAX) Unknown Completed [facility] Flucelvax - multidose vial Flucelvax - multidose vial Unknown Completed [facility] Adacel (Tdap) Adacel (Tdap) Unknown Completed [facility] Flucelvax - multidose vial Flucelvax - multidose vial Unknown Completed [facility] Adacel (Tdap) Adacel (Tdap) Unknown Completed [facility] Flucelvax - multidose vial Flucelvax - multidose vial Unknown Completed [facility] Adacel (Tdap) Adacel (Tdap) Unknown Completed [facility] Flucelvax - multidose vial Flucelvax - multidose vial Unknown Completed [facility] Adacel (Tdap) Adacel (Tdap) Unknown Completed [facility] Flucelvax - multidose vial Flucelvax - multidose vial Unknown Completed [facility] Adacel (Tdap) Adacel (Tdap) Unknown Completed [facility] Flucelvax (ccIIV4) - MDV - 0.5mL Flucelvax (ccIIV4) - MDV - 0.5mL Unknown Completed [facility] Adacel (Tdap) Adacel (Tdap) Unknown Completed [facility] Flucelvax (ccIIV4) - MDV - 0.5mL Flucelvax (ccIIV4) - MDV - 0.5mL Unknown Completed [facility] Adacel (Tdap) Adacel (Tdap) Unknown Completed [facility] Vital Signs Vital Name Observation Time Observation Value Comments S ource Height/Length Measured 2019-09-24 15:13:43 Height/Length Measured 2021-05-31 10:28:10 167.64 cm Weight Dosing 2021-05-31 10:28:10 95.25 kg Height/Length Measured 2021-05-31 10:27:54 167.64 cm Weight Dosing 2021-05-31 10:27:54 95.25 kg Height/Length Measured 2021-05-31 10:26:42 167.64 cm Weight Dosing 2021-05-31 10:26:42 95.25 kg Height/Length Measured 2021-05-31 10:26:38 167.64 cm Weight Dosing 2021-05-31 10:26:38 95.25 kg Height/Length Measured 2021-05-31 10:26:32 167.64 cm Weight Dosing 2021-05-31 10:26:32 95.25 kg Height/Length Measured 2021-05-31 10:26:17 167.64 cm Weight Dosing 2021-05-31 10:26:17 94.34 kg Height/Length Measured 2021-05-31 10:24:28 167.64 cm Weight Dosing 2021-05-31 10:24:28 94.34 kg Systolic blood pressure 2024-01-28 13:24:00 138 mm[Hg] [facility] Diastolic blood pressure 2024-01-28 13:24:00 93 mm[Hg] [facility] Heart rate 2024-01-28 13:24:00 84 /min [facility] Body temperature 2024-01-28 13:20:00 36.56 [place] [facility] Respiratory rate 2024-01-28 13:20:00 20 /min [facility] Body height 2024-01-28 13:20:00 167.6 cm [facility] Body weight 2024-01-28 13:20:00 73.936 kg [facility] BMI 2024-01-28 13:20:00 26.31 kg/m2 [facility] Oxygen saturation in Arterial blood by Pulse oximetry 2024-01-28 13:20:00 99 /min [facility] Systolic blood pressure 2024-01-09 19:26:00 128 mm[Hg] [facility] Diastolic blood pressure 2024-01-09 19:26:00 85 mm[Hg] [facility] Heart rate 2024-01-09 19:26:00 77 /min [facility] Body temperature 2024-01-09 19:26:00 36.78 [place] [facility] Body height 2024-01-09 19:26:00 167.6 cm [facility] Body weight 2024-01-09 19:26:00 73.936 kg [facility] BMI 2024-01-09 19:26:00 26.31 kg/m2 [facility] Systolic blood pressure 2023-12-13 14:15:00 112 mm[Hg] [facility] Diastolic blood pressure 2023-12-13 14:15:00 66 mm[Hg] [facility] Body temperature 2023-12-13 14:15:00 36.33 [place] [facility] Respiratory rate 2023-12-13 14:15:00 21 /min [facility] Heart rate 2023-12-13 14:13:00 82 /min [facility] Oxygen saturation in Arterial blood by Pulse oximetry 2023-12-13 14:13:00 94 /min [facility] Body height 2023-12-13 12:30:00 167.6 cm [facility] Body weight 2023-12-13 12:30:00 75.7 kg [facility] BMI 2023-12-13 12:30:00 26.94 kg/m2 [facility] Systolic blood pressure 2023-12-13 12:30:00 108 mm[Hg] [facility] Diastolic blood pressure 2023-12-13 12:30:00 70 mm[Hg] [facility] Heart rate 2023-12-13 12:30:00 77 /min [facility] Body temperature 2023-12-13 12:30:00 36.44 [place] [facility] Respiratory rate 2023-12-13 12:30:00 20 /min [facility] Body height 2023-12-13 12:30:00 167.6 cm [facility] Body weight 2023-12-13 12:30:00 75.7 kg [facility] BMI 2023-12-13 12:30:00 26.94 kg/m2 [facility] Oxygen saturation in Arterial blood by Pulse oximetry 2023-12-13 12:30:00 98 /min [facility] Systolic blood pressure 2023-11-16 14:57:00 129 mm[Hg] [facility] Diastolic blood pressure 2023-11-16 14:57:00 84 mm[Hg] [facility] Heart rate 2023-11-16 14:57:00 82 /min [facility] Body height 2023-11-16 14:57:00 167.6 cm [facility] Body weight 2023-11-16 14:57:00 76.34 kg [facility] BMI 2023-11-16 14:57:00 27.16 kg/m2 [facility] Oxygen saturation in Arterial blood by Pulse oximetry 2023-11-16 14:57:00 97 /min [facility] Systolic blood pressure 2023-10-12 15:13:00 132 mm[Hg] [facility] Diastolic blood pressure 2023-10-12 15:13:00 89 mm[Hg] [facility] Heart rate 2023-10-12 15:13:00 80 /min [facility] Body temperature 2023-10-12 15:13:00 36.5 [place] [facility] Respiratory rate 2023-10-12 15:13:00 18 /min [facility] Body height 2023-10-12 15:13:00 167.6 cm [facility] Body weight 2023-10-12 15:13:00 75.66 kg [facility] BMI 2023-10-12 15:13:00 26.92 kg/m2 [facility] Oxygen saturation in Arterial blood by Pulse oximetry 2023-10-12 15:13:00 99 /min [facility] Systolic blood pressure 2023-08-13 16:20:00 128 mm[Hg] [facility] Diastolic blood pressure 2023-08-13 16:20:00 81 mm[Hg] [facility] Heart rate 2023-08-13 16:20:00 83 /min [facility] Body temperature 2023-08-13 16:20:00 36.89 [place] [facility] Respiratory rate 2023-08-13 16:20:00 20 /min [facility] Body height 2023-08-13 16:20:00 167.6 cm [facility] Body weight 2023-08-13 16:20:00 74.39 kg [facility] BMI 2023-08-13 16:20:00 26.47 kg/m2 [facility] Oxygen saturation in Arterial blood by Pulse oximetry 2023-08-13 16:20:00 97 /min [facility] Systolic blood pressure 2023-08-01 18:03:00 111 mm[Hg] [facility] Diastolic blood pressure 2023-08-01 18:03:00 79 mm[Hg] [facility] Heart rate 2023-08-01 18:03:00 62 /min [facility] Body height 2023-08-01 18:03:00 167.6 cm [facility] Body weight 2023-08-01 18:03:00 72.122 kg [facility] BMI 2023-08-01 18:03:00 25.66 kg/m2 [facility] Systolic blood pressure 2023-07-02 19:15:00 130 mm[Hg] [facility] Diastolic blood pressure 2023-07-02 19:15:00 71 mm[Hg] [facility] Heart rate 2023-07-02 19:15:00 70 /min [facility] Respiratory rate 2023-07-02 19:15:00 18 /min [facility] Oxygen saturation in Arterial blood by Pulse oximetry 2023-07-02 19:15:00 100 /min [facility] Body temperature 2023-07-02 18:45:00 36.33 [place] [facility] Body height 2023-07-02 16:12:00 167.6 cm [facility] Body weight 2023-07-02 16:12:00 72.576 kg [facility] BMI 2023-07-02 16:12:00 25.82 kg/m2 [facility] Systolic blood pressure 2023-07-02 18:55:00 125 mm[Hg] [facility] Diastolic blood pressure 2023-07-02 18:55:00 68 mm[Hg] [facility] Heart rate 2023-07-02 18:55:00 68 /min [facility] Respiratory rate 2023-07-02 18:55:00 18 /min [facility] Oxygen saturation in Arterial blood by Pulse oximetry 2023-07-02 18:55:00 99 /min [facility] Body temperature 2023-07-02 18:45:00 36.33 [place] [facility] Body height 2023-07-02 16:12:00 167.6 cm [facility] Body weight 2023-07-02 16:12:00 72.576 kg [facility] BMI 2023-07-02 16:12:00 25.82 kg/m2 [facility] Respiratory rate 2023-07-02 18:42:00 18 /min [facility] Systolic blood pressure 2023-06-18 14:46:00 111 mm[Hg] [facility] Diastolic blood pressure 2023-06-18 14:46:00 75 mm[Hg] [facility] Heart rate 2023-06-18 14:46:00 86 /min [facility] Body temperature 2023-06-18 14:46:00 36.22 [place] [facility] Respiratory rate 2023-06-18 14:46:00 18 /min [facility] Body height 2023-06-18 14:46:00 167.6 cm [facility] Body weight 2023-06-18 14:46:00 72.576 kg [facility] BMI 2023-06-18 14:46:00 25.82 kg/m2 [facility] Oxygen saturation in Arterial blood by Pulse oximetry 2023-06-18 14:46:00 99 /min [facility] Systolic blood pressure 2023-05-16 19:59:00 138 mm[Hg] [facility] Diastolic blood pressure 2023-05-16 19:59:00 81 mm[Hg] [facility] Heart rate 2023-05-16 19:53:00 81 /min [facility] Body temperature 2023-05-16 19:53:00 36.72 [place] [facility] Body height 2023-05-16 19:53:00 167.6 cm [facility] Body weight 2023-05-16 19:53:00 73.936 kg [facility] BMI 2023-05-16 19:53:00 26.31 kg/m2 [facility] Systolic blood pressure 2023-05-08 19:12:00 149 mm[Hg] [facility] Diastolic blood pressure 2023-05-08 19:12:00 96 mm[Hg] [facility] Heart rate 2023-05-08 19:12:00 89 /min [facility] Body temperature 2023-05-08 19:12:00 36.61 [place] [facility] Respiratory rate 2023-05-08 19:12:00 18 /min [facility] Body weight 2023-05-08 19:12:00 73.483 kg [facility] BMI 2023-05-08 19:12:00 26.15 kg/m2 [facility] Oxygen saturation in Arterial blood by Pulse oximetry 2023-05-08 19:12:00 97 /min [facility] Systolic blood pressure 2023-05-03 15:08:00 139 mm[Hg] [facility] Diastolic blood pressure 2023-05-03 15:08:00 91 mm[Hg] [facility] Heart rate 2023-05-03 15:03:00 77 /min [facility] Body height 2023-05-03 15:03:00 167.6 cm [facility] 2023-05-03 15:03:00 74.39 kg [facility] BMI 2023-05-03 15:03:00 26.47 kg/m2 [facility] Systolic blood pressure 2023-05-02 20:01:00 142 mm[Hg] [facility] Diastolic blood pressure 2023-05-02 20:01:00 92 mm[Hg] [facility] Heart rate 2023-05-02 20:01:00 75 /min [facility] Body temperature 2023-05-02 20:00:00 36.67 [place] [facility] Respiratory rate 2023-05-02 20:00:00 18 /min [facility] Body height 2023-05-02 20:00:00 167.6 cm [facility] Body weight 2023-05-02 20:00:00 74.98 kg [facility] BMI 2023-05-02 20:00:00 26.68 kg/m2 [facility] Oxygen saturation in Arterial blood by Pulse oximetry 2023-05-02 20:00:00 100 /min [facility] Systolic blood pressure 2023-04-25 17:18:00 123 mm[Hg] [facility] Diastolic blood pressure 2023-04-25 17:18:00 78 mm[Hg] [facility] Heart rate 2023-04-25 17:18:00 76 /min [facility] Body temperature 2023-04-25 17:18:00 36.5 [place] [facility] Respiratory rate 2023-04-25 17:18:00 16 /min [facility] Oxygen saturation in Arterial blood by Pulse oximetry 2023-04-25 17:18:00 100 /min [facility] Body weight 2023-04-25 09:10:00 83.462 kg [facility] BMI 2023-04-25 09:10:00 29.70 kg/m2 [facility] Body height 2023-04-21 12:09:00 167.6 cm [facility] Systolic blood pressure 2023-04-21 10:02:00 178 mm[Hg] [facility] Diastolic blood pressure 2023-04-21 10:02:00 101 mm[Hg] [facility] Heart rate 2023-04-21 10:02:00 108 /min [facility] Respiratory rate 2023-04-21 10:02:00 18 /min [facility] Oxygen saturation in Arterial blood by Pulse oximetry 2023-04-21 10:02:00 97 /min [facility] Body temperature 2023-04-21 09:24:00 37 [place] [facility] Body height 2023-04-21 00:38:00 167.6 cm [facility] Body weight 2023-04-21 00:38:00 73.483 kg [facility] BMI 2023-04-21 00:38:00 29.34 kg/m2 [facility] Systolic blood pressure 2023-04-20 04:38:00 148 mm[Hg] [facility] Diastolic blood pressure 2023-04-20 04:38:00 98 mm[Hg] [facility] Heart rate 2023-04-20 04:38:00 75 /min [facility] Body temperature 2023-04-20 04:38:00 37.28 [place] [facility] Respiratory rate 2023-04-20 04:38:00 18 /min [facility] Oxygen saturation in Arterial blood by Pulse oximetry 2023-04-20 04:38:00 99 /min [facility] Body height 2023-04-20 02:35:00 167.6 cm [facility] 2023-04-20 02:35:00 75.841 kg [facility] BMI 2023-04-20 02:35:00 26.99 kg/m2 [facility] Systolic blood pressure 2023-04-10 17:12:00 143 mm[Hg] [facility] Diastolic blood pressure 2023-04-10 17:12:00 96 mm[Hg] [facility] Heart rate 2023-04-10 17:12:00 88 /min [facility] Body temperature 2023-04-10 17:12:00 36.56 [place] [facility] Body height 2023-04-10 17:12:00 167.6 cm [facility] Body weight 2023-04-10 17:12:00 73.483 kg [facility] BMI 2023-04-10 17:12:00 26.15 kg/m2 [facility] Systolic blood pressure 2023-04-04 22:58:00 138 mm[Hg] [facility] Diastolic blood pressure 2023-04-04 22:58:00 84 mm[Hg] [facility] Heart rate 2023-04-04 22:58:00 84 /min [facility] Body temperature 2023-04-04 22:58:00 36.33 [place] [facility] Respiratory rate 2023-04-04 22:58:00 20 /min [facility] Body height 2023-04-04 22:58:00 167.6 cm [facility] Body weight 2023-04-04 22:58:00 74.588 kg [facility] BMI 2023-04-04 22:58:00 26.54 kg/m2 [facility] Oxygen saturation in Arterial blood by Pulse oximetry 2023-04-04 22:58:00 99 /min [facility] height 2022-08-09 13:00:00 67.5 [in_i] Comm on [facility] weight 2022-08-09 13:00:00 162 [lb_av] Comm on [facility] temperature 2022-08-09 13:00:00 98.2 [degF] Com mon [facility] bmi 2022-08-09 13:00:00 25 kg/m2 Commo n [facility] oximetry 2022-08-09 13:00:00 99 % Commo n [facility] respiratory rate 2022-08-09 13:00:00 17 /min Common [facility] blood pressure systolic 2022-08-09 13:00:00 132 mm[Hg] Common [facility] blood pressure diastolic 2022-08-09 13:00:00 78 mm[Hg] [facility] height 2022-08-09 13:20:00 67.5 [in_i] Comm on [facility] weight 2022-08-09 13:20:00 162 [lb_av] Comm on [facility] temperature 2022-08-09 13:20:00 98.2 [degF] Com mon [facility] bmi 2022-08-09 13:20:00 25 kg/m2 Commo n [facility] oximetry 2022-08-09 13:20:00 99 % Commo n [facility] respiratory rate 2022-08-09 13:20:00 17 /min [facility] blood pressure systolic 2022-08-09 13:20:00 132 mm[Hg] Common [facility] blood pressure diastolic 2022-08-09 13:20:00 78 mm[Hg] Common [facility] Systolic blood pressure 2022-07-05 16:46:00 139 mm[Hg] [facility] Diastolic blood pressure 2022-07-05 16:46:00 86 mm[Hg] [facility] Heart rate 2022-07-05 16:46:00 90 /min [facility] Body temperature 2022-07-05 16:46:00 37.11 [place] [facility] Respiratory rate 2022-07-05 16:46:00 16 /min [facility] Body height 2022-07-05 16:46:00 167.6 cm [facility] Body weight 2022-07-05 16:46:00 71.26 kg [facility] BMI 2022-07-05 16:46:00 25.36 kg/m2 [facility] Oxygen saturation in Arterial blood by Pulse oximetry 2022-07-05 16:46:00 99 /min [place] [facility] height 2022-05-10 10:00:00 67.5 [in_i] Comm on [facility] weight 2022-05-10 10:00:00 154.4 [lb_av] Co mmon [facility] temperature 2022-05-10 10:00:00 97.4 [degF] Com mon [facility] bmi 2022-05-10 10:00:00 23.82 kg/m2 Comm on [facility] oximetry 2022-05-10 10:00:00 97 % Commo n [facility] respiratory rate 2022-05-10 10:00:00 16 /min [facility] blood pressure systolic 2022-05-10 10:00:00 108 mm[Hg] [facility] blood pressure diastolic 2022-05-10 10:00:00 71 mm[Hg] [facility] Systolic blood pressure 2022-04-01 20:24:00 119 mm[Hg] [place] o [facility] Diastolic blood pressure 2022-04-01 20:24:00 83 mm[Hg] [facility] Heart rate 2022-04-01 20:24:00 103 /min [facility] Body temperature 2022-04-01 20:24:00 36.61 [place] Respiratory rate 2022-04-01 20:24:00 16 /min [facility] Body height 2022-04-01 20:24:00 168.9 cm [facility] Body weight 2022-04-01 20:24:00 72.439 kg [facility] BMI 2022-04-01 20:24:00 25.39 kg/m2 [facility] Oxygen saturation in Arterial blood by Pulse oximetry 2022-04-01 20:24:00 99 /min [facility] Systolic blood pressure 2022-03-30 14:56:00 118 mm[Hg] [facility] Diastolic blood pressure 2022-03-30 14:56:00 81 mm[Hg] [facility] Heart rate 2022-03-30 14:56:00 85 /min [facility] Body temperature 2022-03-30 14:56:00 36.67 [facility] Respiratory rate 2022-03-30 14:56:00 18 /min [facility] Body height 2022-03-30 14:56:00 168.9 cm [facility] Body weight 2022-03-30 14:56:00 72.122 kg [facility] BMI 2022-03-30 14:56:00 25.28 kg/m2 [facility] height 2022-02-08 14:00:00 67.5 [in_i] Comm on [facility] weight 2022-02-08 14:00:00 158.8 [lb_av] Co mmon [facility] temperature 2022-02-08 14:00:00 98.4 [degF] Com mon [facility] bmi 2022-02-08 14:00:00 24.5 kg/m2 Commo n [facility] oximetry 2022-02-08 14:00:00 97 % Commo n [facility] respiratory rate 2022-02-08 14:00:00 16 /min Common [facility] blood pressure systolic 2022-02-08 14:00:00 125 mm[Hg] Common [facility] blood pressure diastolic 2022-02-08 14:00:00 77 mm[Hg] Common [facility] height 2021-11-25 09:40:00 67 [in_i] Commo n [facility] weight 2021-11-25 09:40:00 161.4 [lb_av] Co on [facility] temperature 2021-11-25 09:40:00 97.9 [degF] Com mon [facility] bmi 2021-11-25 09:40:00 25.28 kg/m2 Comm on [facility] oximetry 2021-11-25 09:40:00 98 % Commo n [facility] respiratory rate 2021-11-25 09:40:00 16 /min Common [facility] blood pressure systolic 2021-11-25 09:40:00 126 mm[Hg] Common [facility] blood pressure diastolic 2021-11-25 09:40:00 72 mm[Hg] Common [facility] height 2021-11-25 10:40:00 67.5 [in_i] Comm on [facility] weight 2021-11-25 10:40:00 161.4 [lb_av] Co mmon [facility] temperature 2021-11-25 10:40:00 97.9 [degF] Com [facility] bmi 2021-11-25 10:40:00 24.9 kg/m2 Commo n [facility] oximetry 2021-11-25 10:40:00 98 % Commo n [facility] respiratory rate 2021-11-25 10:40:00 16 /min Common [facility] blood pressure systolic 2021-11-25 10:40:00 126 mm[Hg] Common [facility] blood pressure diastolic 2021-11-25 10:40:00 72 mm[Hg] Common [facility] height 2021-09-30 11:20:00 67 [in_i] Commo n [facility] weight 2021-09-30 11:20:00 160 [lb_av] Comm on [facility] bmi 2021-09-30 11:20:00 25.06 kg/m2 Comm on [facility] height 2021-09-12 08:20:00 67 [in_i] Commo n [facility] weight 2021-09-12 08:20:00 160.8 [lb_av] Co mmon [facility] temperature 2021-09-12 08:20:00 97.9 [degF] Com mon [facility] bmi 2021-09-12 08:20:00 25.18 kg/m2 Comm on [facility] oximetry 2021-09-12 08:20:00 99 % Commo n [facility] respiratory rate 2021-09-12 08:20:00 16 /min Common [facility] blood pressure systolic 2021-09-12 08:20:00 128 mm[Hg] [facility] blood pressure diastolic 2021-09-12 08:20:00 76 mm[Hg] [facility] Systolic blood pressure 2021-08-24 14:17:00 123 mm[Hg] [facility] Diastolic blood pressure 2021-08-24 14:17:00 86 mm[Hg] [facility] Heart rate 2021-08-24 14:17:00 83 /min [facility] 2021-08-24 14:17:00 37.06 [facility] Respiratory rate 2021-08-24 14:17:00 16 /min [facility] Body height 2021-08-24 14:17:00 167.6 cm [facility] Body weight 2021-08-24 14:17:00 74.39 kg [facility] BMI 2021-08-24 14:17:00 26.47 kg/m2 [facility] Oxygen saturation in Arterial blood by Pulse oximetry 2021-08-24 14:17:00 97 /min [facility] Height/Length Measured 2019-09-29 11:56:26 Height/Length Measured 2019-09-29 06:57:23 Weight Dosing 2019-09-29 06:57:23 Procedures Procedure Date / Time Performed Performing Clinician Source EGD (ENDO) 2023-12-13 13:52:16 Adria Torres [facility] EGD (ENDO) 2023-12-13 13:52:16 Adria Torres [facility] [id number] - MS EGD TRANSORAL BIO PSY SINGLE/MULTIPLE 2023-12-13 13:05:00 Clint Jett [facility] POCT GLUCOSE (AUTOMATED) 2023-12-13 12:35:00 Clint Jett [facility] POCT GLUCOSE (AUTOMATED) 2023-12-13 12:35:00 Clint Jett [facility] POCT HEMOGLOBIN A1C TEST 2023-11-16 14:58:00 Shikha Gross [facility] POCT SARS-COV-2 ANTIGEN (BIN AX NOW) 2023-10-12 15:54:00 Yuni Scott [facility] POCT MOLECULAR STREP 2023-10-12 15:27:00 Yuni Scott [facility] ESOPHAGOGASTRODUODENOSCOPY 2023-07-02 18:14:00 lCint Jett [facility] POCT GLUCOSE (AUTOMATED) 2023-07-02 17:21:00 Clint Jett [facility] POCT GLUCOSE (AUTOMATED) 2023-07-02 17:21:00 Clint Jett [facility] DAY SURGERY - ADC 2023-07-02 06:01:00 Doctor Unassigned, [place] [facility] CBC WITH DIFF 2023 14:49:00 Clint Jett [facility] INSURANCE CORRESPONDENCE 2023-06-20 06:01:00 Doctor Unassigned, [place] [facility] INSURANCE CORRESPONDENCE 2023-06-20 06:01:00 Doctor Unassigned, [place] [facility] DISABILITY/FMLA 2023-05-30 06:01:00 Doctor Unassigned, [place] [facility] AUTHORIZATION FOR RELEASE OF PHI 2023-04 06:01:00 Doctor Unassigned, [place] [facility] POCT GLUCOSE (AUTOMATED) 2023-04-25 18:31:00 Ludy Burnett [facility] MAGNESIUM 2023-04-25 09:19:00 Shannon [facility] BASIC METABOLIC PANEL (NA, K , CL, CO2, GLUCOSE, BUN, CREATININE, CA) 2023-04-25 09:19:00 Shannon [facility] CBC WITH DIFF 2023-04-25 09:19:00 Shannon [facility] POCT GLUCOSE (AUTOMATED) 2023-04-25 00:03:00 Ludy Burnett [facility] CBC WITH DIFF 2023-04-24 12:49:00 Shannon [facility] POCT GLUCOSE (AUTOMATED) 2023-04-24 12:11:00 Ludy Burnett [facility] PHOSPHORUS 2023-04-24 09:23:00 Cortez Fernandez [facility] MAGNESIUM 2023-04-24 09:23:00 [facility] (NA, K , CL, CO2, GLUCOSE, BUN, CREATININE, CA) 2023-04-24 09:23:00 Marielena Sandy [facility] POCT GLUCOSE (AUTOMATED) 2023-04-24 06:10:00 Ludy Burnett [facility] POCT GLUCOSE (AUTOMATED) 2023-04-24 00:41:00 Ludy Burnett [facility] POCT GLUCOSE (AUTOMATED) 2023-04-23 17:35:00 Ludy Burnett [facility] POCT GLUCOSE (AUTOMATED) 2023-04-23 17:35:00 Ludy Burnett [facility] POCT GLUCOSE (AUTOMATED) 2023-04-23 11:56:00 Ludy Burnett [facility] POCT GLUCOSE (AUTOMATED) 2023-04-23 11:56:00 Ludy Burnett [facility] PHOSPHORUS 2023-04-23 10:42:00 [place]23-04-23 10:42:00 Rebecca [facility] BASIC METABOLIC PANEL (NA, K , CL, CO2, GLUCOSE, BUN, CREATININE, CA) 2023-04-23 10:42:00 Rebecca [facility] CBC WITH DIFF 2023-04-23 10:42:00 Rebecca [facility] PHOSPHORUS 2023-04-23 10:42:00 Rebecca [facility] MAGNESIUM 2023-04-23 10:42:00 Rebecca [facility] BASIC METABOLIC PANEL (NA, K , CL, CO2, GLUCOSE, BUN, CREATININE, CA) 2023-04-23 10:42:00 Rebecca [facility] CBC WITH DIFF 2023-04-23 10:42:00 Rebecca [facility] POCT GLUCOSE (AUTOMATED) 2023-04-23 06:55:00 Ludy Burnett [facility] POCT GLUCOSE (AUTOMATED) 2023-04-23 06:55:00 Ludy Burnett [facility] POCT GLUCOSE (AUTOMATED) 2023-04-22 22:45:00 Ludy Burnett [facility] POCT GLUCOSE (AUTOMATED) 2023-04-22 22:45:00 Ludy Burnett [facility] POCT GLUCOSE (AUTOMATED) 2023-04-22 18:17:00 Ludy Burnett [facility] POCT GLUCOSE (AUTOMATED) 2023-04-22 18:17:00 Ludy Burnett [facility] POCT GLUCOSE (AUTOMATED) 2023-04-22 13:43:00 Ludy Burnett [facility] POCT GLUCOSE (AUTOMATED) 2023-04-22 13:43:00 Ludy Burnett [facility] PHOSPHORUS 2023-04-22 10:14:00 Ludy Burnett [facility] MAGNESIUM 2023-04-22 10:14:00 Ludy Burnett [facility] BASIC METABOLIC PANEL (NA, K , CL, CO2, GLUCOSE, BUN, CREATININE, CA) 2023-04-22 10:14:00 Shannon [facility] CBC WITH DIFF 2023-04-22 10:14:00 Shannon Fausto [facility] PHOSPHORUS 2023-04-22 10:14:00 Ludy Burnett [facility] MAGNESIUM 2023-04-22 10:14:00 Ludy Burnett [facility] BASIC METABOLIC PANEL (NA, K , CL, CO2, GLUCOSE, BUN, CREATININE, CA) 2023-04-22 10:14:00 Shannon [facility] CBC WITH DIFF 2023-04-22 10:14:00 Shannon [facility] PHOSPHORUS 2023-04-21 12:53:00 Ludy Burnett [facility] MAGNESIUM 2023-04-21 12:53:00 Ludy Burnett [facility] BASIC METABOLIC PANEL (NA, K , CL, CO2, GLUCOSE, BUN, CREATININE, CA) 2023-04-21 12:53:00 Ludy Burnett [facility] PHOSPHORUS 2023-04-21 12:53:00 Ludy Burnett [facility] MAGNESIUM 2023-04-21 12:53:00 Ludy Burnett [facility] BASIC METABOLIC PANEL (NA, K , CL, CO2, GLUCOSE, BUN, CREATININE, CA) 2023-04-21 12:53:00 Ludy Burnett [facility] CBC WITH DIFF 2023-04-21 12:52:00 Ludy Burnett [facility] GLYCOSYLATED HEMOGLOBIN (A1C) 2023-04-21 12:52:00 Nathan Riddle [facility] CBC WITH DIFF 2023-04-21 12:52:00 Ludy Burnett [facility] GLYCOSYLATED HEMOGLOBIN (A1C) 2023-04-21 12:52:00 Nathan Riddle [facility] EXPLORATORY LAPAROTOMY 2023-04-21 07:24:00 Ludy Burnett [facility] EXPLORATORY LAPAROTOMY 2023-04-21 07:24:00 Ludy Burnett [facility] PROTHROMBIN TIME / INR 2023-04-21 05:39:00 Foster Christie [facility] URINALYSIS 2023-04-21 05:39:00 Foster Christie [facility] PROTHROMBIN TIME / INR 2023-04-21 05:39:00 Foster Christie [facility] URINALYSIS 2023-04-21 05:39:00 Foster Christie [facility] CT ABDOMEN PELVIS W CONTRAST 2023-04-21 03:42:31 Foster Christie [facility] CT ABDOMEN PELVIS W CONTRAST 2023-04-21 03:42:31 Foster Christie [facility] LIPASE 2023-04-21 01:51:00 Foster Christie [facility] COMP. METABOLIC PANEL ([id number]) 2023-04-21 01:51:00 Foster Christie [facility] CBC WITH DIFF 2023-04-21 01:51:00 Foster Christie [facility] LIPASE 2023-04-21 01:51:00 Foster Christie [facility] COMP. METABOLIC PANEL ([id number]) 2023-04-21 01:51:00 Foster Christie [facility] CBC WITH DIFF 2023-04-21 01:51:00 Foster Christie [facility] ASSIGNMENT OF BENEFITS 2023-04-21 01:31:40 Doctor Unassigned, [place] [facility] ASSIGNMENT OF BENEFITS 2023-04-21 01:31:40 Doctor Unassigned, [place] [facility] CONSENT/REFUSAL FOR DIAGNOSI S AND TREATMENT 2023-04-21 00:17:13 Doctor Unassigned, [place] [facility] CONSENT/REFUSAL FOR DIAGNOSI S AND TREATMENT 2023-04-21 00:17:13 Doctor Unassigned, [place] [facility] POCT TEST 2023-04-20 03:31:00 Gary Larson [facility] NOTICE OF PRIVACY PRACTICES 2023-04-20 02:26:27 Doctor Unassigned, [place] [facility] CONSENT/REFUSAL FOR DIAGNOSI S AND TREATMENT 2023-04-20 02:25:10 Doctor Unassigned, [place] [facility] POCT MOLECULAR FLU 2023-04-04 23:28:00 Unknown, Attending [facility] POCT MOLECULAR STREP 2023-04-04 23:25:00 Unknown, Attending [facility] CONSENT/REFUSAL FOR DIAGNOSI S AND TREATMENT 2023-04-04 22:31:09 Doctor Unassigned, [place] [facility] POCT MOLECULAR STREP 2022-07-05 16:49:00 Unknown, Attending [facility] POCT MOLECULAR STREP 2022-04-01 20:26:00 Unknown, Attending [facility] FLU VACC (), 6 MO-6 4 YRS, .5ML, IM, QUAD (FLUCELVAX) 2022-03-30 15:13:17 Sherry Lombardi [facility] AUTHORIZATION FOR RELEASE OF PHI 2021-09 05:01:00 Doctor Unassigned, [place] [facility] Encounters Start Date/Time End Date/Time Encounter Type Admission Type Attending [facility] Care Facility Care Department Encounter ID Source 2022-08-08 12:04:01 Outpatient Erica Prather [facility] [id number] [facility] 2022-05-10 09:21:04 Outpatient Erica Prather [facility] [id number] [facility] 2021-11-23 11:43:03 Outpatient Erica Prather [facility] [id number] [facility] 2021-09-28 09:15:03 Outpatient Erica Prather [facility] [id number] [facility] 2021-09-09 14:06:02 Outpatient Erica Prather [facility] [id number] [facility] 2021-05-31 10:22:48 Inpatient 3 Miriam Arce [facility] [id number] [facility] 2019-09-10 13:23:00 Inpatient Miriam Arce [facility] [id number] [facility] 2019-08-04 11:06:00 Inpatient C MIRIAM ARCE [facility] SAMIA RIVERA PT [id number] [facility] 2024-07-28 08:00:00 2024-07-28 08:00:00 Outpatient R CLINT JETT [facility] [id number] [facility] 2024-03-18 10:30:00 2024-03-18 10:30:00 Outpatient R SHIKHA GROSS [facility] [id number] [facility] 2024-02-11 08:00:00 2024-02-11 08:00:00 Outpatient R CLINT JETT [facility] [id number] [facility] 2024-02-08 10:30:00 2024-02-08 10:30:00 Outpatient R SIMONE CHADWICK [facility] [id number] [facility] 2024-01-28 08:15:00 2024-01-28 08:57:24 Outpatient R CLINT JETT [facility] [id number] [facility] 2024-01-28 08:15:00 2024-01-28 08:57:24 Office Visit Clint Jett [facility] 1..840.114 350.1.13.10 4.2.7.2.686 [id number] [facility] 2024-01-09 14:30:00 2024-01-09 14:45:00 Office Visit Adria Torres [facility] 1..840.114 350.1.13.10 4.2.7.2.686 [id number] [facility] 2024-01-09 14:30:00 2024-01-09 14:35:43 Outpatient ADRIA GONCALVES [facility] [id number] [facility] 2023-12-13 06:37:00 2023-12-13 09:20:00 Outpatient R CLINT JETT [facility] [id number] [facility] 2023-12-13 06:37:00 2023-12-13 09:20:00 Hospital Encounter Clint Jett [facility] 1.2.840.114 350.1.13.10 4.2.7.2.686 [id number] [facility] 2023-12-13 08:05:00 2023-12-13 08:35:00 Surgery Clint Jett [facility] 1.2.840.114 350.1.13.10 4.2.7.2.686 [id number] [facility] 2023-11-16 00:00:00 2023-11-22 16:48:26 Telephone [facility] 1.2840.114 350.1.13.10 4.2.7.2.686 [id number] [facility] 2023-11-16 11:00:00 2023-11-16 11:15:00 Disability Specialist Visit Lab, [facility] 1.2840.114 350.1.13.10 4.2.7.2.686 [id number] [facility] 2023-11-16 10:00:00 2023-11-16 10:48:14 [facility] [id number] [facility] 2023-11-16 10:00:00 2023-11-16 10:48:14 Office Visit [facility] 1.2840.114 350.1.13.10 4.2.7.2.686 [id number] [facility] 2023-11-14 00:00:00 2023-11-14 13:43:56 Telephone Alexkennedi [facility] 1..840.114 350.1.13.10 4.2.7.2.686 [id number] [facility] 2023-11-07 13:00:00 2023-11-07 13:00:00 Outpatient R ADRIA TORRES [facility] [id number] [facility] 2023-10-12 10:00:00 2023-10-12 10:41:46 Outpatient R YUNI SCOTT [facility] [id number] [facility] 2023-10-12 10:00:00 2023-10-12 10:41:46 Office Visit Yuni Scott [facility] 1..840.114 350.1.13.10 4.2.7.2.686 [id number] [facility] 2023-08-13 11:15:00 2023-08-13 11:43:00 Outpatient R CLINT JETT [facility] [id number] [facility] 2023-08-13 11:15:00 2023-08-13 11:43:00 Office Visit Clint Jett [facility] ..840.114 350.1.13.10 4.2.7.2.686 [id number] [facility] 2023-08-01 13:00:00 2023-08-01 13:26:19 Outpatient R ADRIA TORRES [facility] [id number] [facility] 2023-08-01 13:00:00 2023-08-01 13:26:19 Office Visit [facility] 1.2.840.114 350.1.13.10 4.2.7.2.686 [id number] [facility] 2023-07-30 08:30:00 2023-07-30 08:30:00 Outpatient R CLINT JETT [facility] [id number] [facility] 2023-07-26 00:00:00 2023-07-26 00:00:00 Outpatient R KRISTINA ALEX [facility] [id number] [facility] 2023-07-20 12:46:50 2023-07-20 12:46:50 Outpatient [facility] [id number] Mayco Santos 2023-07-16 08:00:00 2023-07-16 08:00:00 Outpatient R CL[facility] J[facility] [id number] [facility] 2023-07-16 00:00:00 2023-07-16 00:00:00 Telephone Clint Jett [facility] 1.0.114 350.1.13.10 4.2.7.2.686 [id number] [facility] 2023-07-04 10:44:29 2023-07-04 10:44:29 Outpatient [facility] [id number] Mayco Santos 2023-07-02 11:11:00 2023-07-02 13:15:00 Outpatient R CLINT JETT [facility] [id number] [facility] 2023-07-02 11:11:00 2023-07-02 13:15:00 Hospital Encounter Clint Jett [facility] 1.2840.114 350.1.13.10 4.2.7.2.686 [id number] [facility] 2023-07-02 12:25:00 2023-07-02 12:55:00 [facility] 1.2840.114 350.1.13.10 4.2.7.2.686 [id number] [facility] 2023-07-02 12:19:00 2023-07-02 12:45:00 Anesthesia Event Hemanth Ritter Jeffrey S [facility] 1.840.114 350.1.13.10 4.2.7.2.686 [id number] [facility] 2023-07-02 00:00:00 2023-07-02 00:00:00 Orders Only Doctor Unassigned, [place] [facility] 1.0.114 350.1.13.10 4.2.7.2.686 [id number] [facility] 2023 09:45:00 2023 10:00:00 Disability Specialist Visit Pob, Adc Lab Main Clint Jett [facility] PROFESSIO [facility] 1.0.114 350.1.13.10 4.2.7.2.686 [id number] [facility] 2023 09:45:00 2023 09:45:00 Outpatient R DINH [facility] [id number] [facility] 2023-06-18 09:00:00 2023-06-18 09:52:23 Outpatient R CLINT JETT [facility] [id number] [facility] 2023-06-18 09:00:00 2023-06-18 09:52:23 Office Visit Clint Jett [facility] 1..114 350.1.13.10 4.2.7.2.686 [id number] [facility] 2023-06-18 00:00:00 2023-06-18 00:00:00 Letter (Out) Dinh [facility] 1.0.114 350.1.13.10 4.2.7.2.686 [id number] [facility] 2023-06-06 00:00:00 2023-06-06 00:00:00 Patient Secure Msg Doctor Unassigned, [place] [facility] 1.2840.114 350.1.13.10 4.2.7.2.686 [id number] [facility] 2023-06-05 00:00:00 2023-06-05 00:00:00 Telephone [facility] 1.2.840.114 350.1.13.10 4.2.7.2.686 [id number] [facility] 2023-05-30 00:00:00 2023-05-30 00:00:00 Orders Only Doctor Unassigned, [place] [facility] 1.2840.114 350.1.13.10 4.2.7.2.686 [id number] [facility] 2023-05-25 00:00:00 2023-05-25 00:00:00 Telephone Ludy Burnett [facility] 1.2.840.114 350.1.13.10 4.2.7.2.686 [id number] [facility] 2023-05-22 14:05:17 2023-05-22 14:05:17 Outpatient [facility] [id number] Mayco Perez Tom 2023-05-16 14:00:00 2023-05-16 14:30:00 Office Visit [facility] 1.2.840.114 350.1.13.10 4.2.7.2.686 [id number] [facility] 2023-05-16 14:00:00 2023-05-16 14:00:00 Outpatient R ADRIA TORRES [facility] [id number] [facility] 2023-05-10 00:00:00 2023-05-10 00:00:00 Telephone Ludy Burnett [facility] 1.840.114 350.1.13.10 4.2.7.2.686 [id number] [facility] 2023-05-08 13:00:00 2023-05-08 13:29:13 Outpatient SHERRY GONZALEZ [facility] [id number] [facility] 2023-05-08 13:00:00 2023-05-08 13:29:13 Urgent Care Sherry Lombardi Unknown, Attending [facility] 1..840.114 350.1.13.10 4.2.7.2.686 [id number] [facility] 2023-05-03 09:15:00 2023-05-03 09:45:00 Office Visit Adria Torres FernandoCounts include 234 beds at the [facility]ILDING 1..840.114 350.1.13.10 4.2.7.2.686 [id number] [facility] 2023-05-03 09:15:00 2023-05-03 09:28:29 Outpatient ADRIA GONCALVES [facility] [id number] [facility] 2023-05-02 13:45:00 2023-05-02 14:00:00 Office Visit Ludy Burnett [facility] 1.840.114 350.1.13.10 4.2.7.2.686 [id number] [facility] 2023-05-02 13:45:00 2023-05-02 13:45:00 Outpatient R LUDY BURNETT [facility] [id number] [facility] 2023-04-30 00:00:00 2023-04-30 00:00:00 Orders Only Doctor Unassigned, [place] [facility] 1.2.840.114 350.1.13.10 4.2.7.2.686 [id number] [facility] 2023-04-26 00:00:00 2023-04-26 00:00:00 Transition of Care Salena En WALLISJonathon [facility] 1.2.840.114 350.1.13.10 4.2.7.2.686 [id number] [facility] 2023-04-20 18:39:00 2023-04-25 14:30:00 Inpatient X LUDY BURNETT [facility] MICHEAL [id number] [facility] 2023-04-20 18:39:00 2023-04-25 14:30:00 Hospital Encounter ShahnazFoster Douglas Scott [facility] 1.2.840.114 350.1.13.10 4.2.7.2.686 [id number] [facility] 2023-04-21 01:05:00 2023-04-21 04:05:00 Surgery Ludy Burnett [facility] 1.2.840.114 350.1.13.10 4.2.7.2.686 [id number] [facility] 2023-04-19 20:37:00 2023-04-19 22:40:00 Emergency X [facility] ERT [id number] [facility] 2023-04-19 20:37:00 2023-04-19 22:40:00 Emergency Gary Larson [facility] 1.2.840.114 350.1.13.10 4.2.7.2.686 [id number] [facility] 2023-04-10 11:15:00 2023-04-10 11:23:44 Outpatient R ADRIA TORRES [facility] [id number] [facility] 2023-04-10 11:15:00 2023-04-10 11:23:44 Office Visit Adria Torres [facility] 1.2.840.114 350.1.13.10 4.2.7.2.686 [id number] [facility] 2023-04-04 16:40:00 2023-04-04 17:54:16 Outpatient R DIAMOND MAXWELL [facility] [id number] [facility] 2023-04-04 16:40:00 2023-04-04 17:54:16 Urgent Care Diamond Maxwell Unknown, Attending [facility] OFF[facility] 1.2.840.114 350.1.13.10 4.2.7.2.686 [id number] [facility] 2023-04-04 00:00:00 2023-04-04 00:00:00 Orders Only Doctor Unassigned, [place] [facility] 1.2.840.114 350.1.13.10 4.2.7.2.686 [id number] [facility] 2023-04-02 09:30:00 2023-04-02 09:30:00 Outpatient R SIMONE CHADWICK [facility] [id number] [facility] 2023-03-13 00:00:00 2023-03-13 00:00:00 Outpatient GC_GCBZW_Ka diyala_S PRIV [facility] [id number] [facility] 2022-12-28 00:00:00 2022-12-28 00:00:00 [facility]B) [facility] [id number] 2022-12-27 00:00:00 2022-12-27 00:00:00 (TEL) [facility] ST[facility] [id number] [facility] 2022-12-26 15:36:31 2022-12-26 15:36:31 Outpatient JAY THOMPSON [id number] Mayco Santos 2022-11-26 00:00:00 2022-11-26 00:00:00 (WEB) STLMLC STLMLC [id number] [facility] 2022-10-29 00:00:00 2022-10-29 00:00:00 (WEB) STLMLC STLMLC [id number] [facility] 2022-08-09 00:00:00 2022-08-09 00:00:00 OFFICE VISIT ESTAB PT LEVEL 4 STLMLC STLMLC [id number] [facility] 2022-08-09 00:00:00 2022-08-09 00:00:00 SUB ANNUAL [facility] WELLNESS VISIT STLMLC STLMLC [id number] [facility] 2022-07-05 10:40:00 2022-07-05 11:00:00 Urgent Care Manish Kumar Unknown, Attending [facility] 1..840.114 350.1.13.10 4.2.7.2.686 [id number] [facility] 2022-07-05 10:40:00 2022-07-05 10:40:00 Outpatient MANISH HARVEY [facility] [id number] [facility] 2022 08:30:34 2022 23:59:00 Outpatient SHERRY GONZALEZ [facility] [id number] [facility] 2022 08:30:34 2022 23:59:00 Hospital Encounter Sherry Lombardi [facility] 1..840.114 350.1.13.10 4.2.7.2.686 [id number] [facility] 2022-05-29 13:12:2022-05-29 13:12:01 Outpatient [facility] [id number] Mayco Santos 2022-05-10 00:00:00 2022-05-10 00:00:00 OFFICE VISIT ESTAB PT LEVEL 4 STLMLC STLMLC [id number] [facility] 2022-04-01 14:20:00 2022-04-01 14:40:00 Urgent Care John Padilla Unknown, Attending [facility] MEDICAL OFFICE BUILDING 1.2.840.114 350.1.13.10 4.2.7.2.686 [id number] [facility] 2022-04-01 14:20:00 2022-04-01 14:20:00 Outpatient JOHN BAKER [facility] [id number] [facility] 2022-03-31 09:00:37 2022-03-31 09:00:37 Outpatient [facility] [id number] Mayco Santos 2022-03-30 09:00:00 2022-03-30 09:30:00 Office Visit Sher[facility] 1.2.840.114 350.1.13.10 4.2.7.2.686 [id number] [facility] 2022-03-30 09:00:00 2022-03-30 09:00:00 Outpatient SHERRY GONZALEZ [facility] [id number] [facility] 2022-03-30 09:00:00 2022-03-30 09:00:00 Outpatient SHERRY GONZALEZ [facility] [id number] [facility] 2022-03-30 09:00:00 2022-03-30 09:00:00 Outpatient SHERRY GONZALEZ [facility] [id number] [facility] 2022-03-30 09:00:00 2022-03-30 09:00:00 Outpatient SHERRY GONZALEZ [facility] [id number] [facility] 2022-03-30 09:00:00 2022-03-30 09:00:00 Outpatient LISBETH GONZALEZCY [facility] [id number] [facility] 2022-02-08 00:00:00 2022-02-08 00:00:00 OFFICE VISIT ESTAB PT LEVEL 4 STLMLC STLMLC [id number] [facility] 2022-01-23 00:00:00 2022-01-23 00:00:00 (TEL) STLMLC STLMLC [id number] [facility] 2021-12-21 00:00:00 2021-12-21 00:00:00 (TEL) STLMLC STLMLC [id number] [facility] 2021-11-25 00:00:00 2021-11-25 00:00:00 (MCR WELL) Medicare Wellness STLMLC STLMLC [id number] [facility] 2021-11-25 00:00:00 2021-11-25 00:00:00 OFFICE VISIT ESTAB PT LEVEL 4 STLMLC STLMLC [id number] [facility] 2021-11-04 13:30:00 2021-11-04 13:30:00 Outpatient ALEX CORDOVA [facility] [id number] [facility] 2021-10-03 00:00:00 2021-10-03 00:00:00 Patient Secure MsSimone Hernández [facility] PROFESSIO [facility] 1..840.114 350.1.13.10 4.2.7.2.686 [id number] [facility] 2021-09-30 00:00:00 2021-09-30 00:00:00 OFFICE VISIT ESTAB PT LEVEL 4 STLMLC STLMLC [id number] [facility] 2021-09-13 00:00:00 2021-09-13 00:00:00 Orders Only Doctor Unassigned, [place] [facility] ..840.114 350.1.13.10 4.2.7.2.686 [id number] [facility] 2021-09-12 00:00:00 2021-09-12 00:00:00 OFFICE VISIT NEW PT LEVEL 4 STLMLC STLMLC [id number] [facility] 2021-08-30 12:00:00 2021-08-30 12:00:00 Outpatient R [facility] [id number] [facility] 2021-08-30 12:00:00 2021-08-30 12:00:00 Outpatient R [facility] [id number] [facility] 2021-08-24 09:20:00 2021-08-24 09:40:00 Urgent Care [facility] 1.2.840.114 350.1.13.10 4.2.7.2.686 [id number] [facility] 2021-08-24 09:20:00 2021-08-24 09:20:00 Outpatient R [facility] [id number] [facility] 2021-08-17 10:30:00 2021-08-17 11:22:18 Office Visit Simone Chadwick [facility] 1.2.840.114 350.1.13.10 4.2.7.2.686 [id number] [facility] 2021-08-17 10:30:00 2021-08-17 11:22:18 Outpatient R SIMONE CHADWICK [facility] [id number] [facility] 2021-08-17 10:30:00 2021-08-17 10:30:00 Outpatient R FARRUKH SIMONE [facility] [id number] [facility] 2021-08-17 00:00:00 2021-08-17 00:00:00 Refill Clayton [facility] MED[facility] OFFICE BUILDING 1.2.840.114 350.1.13.10 4.2.7.2.686 [id number] [facility] 2021-08-15 00:00:00 2021-08-15 00:00:00 [facility] 1.2.840.114 350.1.13.10 4.2.7.2.686 [id number] [facility] 2021-07-20 13:30:00 2021-07-20 13:36:12 Office Visit Simone Chadwick [facility] PROFESSIO NAL BUILDING 1.84.114 350.1.13.10 4.2.7.2.686 [id number] [facility] 2021-07-20 13:30:00 2021-07-20 13:36:12 Outpatient R SIMONE CHADWICK [facility] [id number] [facility] 2021-07-20 13:30:00 2021-07-20 13:30:00 Outpatient R SIMONE CHADWICK [facility] [id number] [facility] 2021-06-28 06:35:00 2021-06-28 12:29:00 Outpatient R SIMONE CHADWICK [facility] DRYING SUPERVISOR [id number] [facility] 2021-06-28 06:35:00 2021-06-28 12:29:00 Hospital Encounter Simone Chadwick [facility] SURGICAL UPLAND 1.2840.114 350.1.13.10 4.2.7.2.686 [id number] [facility] 2021-06-28 08:00:00 2021-06-28 11:50:00 Surgery Simone Chadwick [facility]PL[facility] 1.2.840.114 350.1.13.10 4.2.7.2.686 [id number] [facility] 2021-06-27 08:45:00 2021-06-27 09:00:00 Laboratory Only Only, Adc Test Simone Chadwick [facility] 1.84.114 350.1.13.10 4.2.7.2.686 [id number] [facility] 2021-06-27 08:30:00 2021-06-27 08:58:38 Disability Specialist Visit 2, [facility] 1.284.114 350.1.13.10 4.2.7.2.686 [id number] [facility] 2021-06-27 08:30:00 2021-06-27 08:30:00 [facility] [id number] 2021-06-27 08:30:00 2021-06-27 08:28:07 Outpatient R SIMONE CHADWICK [facility] [id number] [facility] 2021-06-27 00:00:00 2021-06-27 00:00:00 Orders Only Doctor Unassigned, [place] [facility] 1..114 350.1.13.10 4.2.7.2.686 [id number] [facility] 2021-06-16 09:45:00 2021-06-16 09:45:00 Disability Specialist Visit 2, Adc Lab Simone Chadwick [facility] 1.284.114 350.1.13.10 4.2.7.2.686 [id number] [facility] 2021-06-16 09:00:00 2021-06-16 09:32:37 Outpatient R SIMONE CHADWICK [facility] [id number] [facility] 2021-06-16 09:00:00 2021-06-16 09:32:37 Office Visit Simone Chadwick [facility] 1.284.114 350.1.13.10 4.2.7.2.686 [id number] [facility] 2021-06-16 00:00:00 2021-06-16 00:00:00 Orders Only Doctor Unassigned, [place] [facility] 1..840.114 350.1.13.10 4.2.7.2.686 [id number] [facility] 2021-06-14 12:00:00 2021-06-14 12:00:00 Outpatient R SARA ARNOLD [facility] [id number] [facility] 2021-06-08 09:30:00 2021-06-08 10:11:44 Outpatient ADRIA GONCALVES [facility] [id number] [facility] 2021-06-08 09:30:00 2021-06-08 10:00:00 Office Visit [facility]ILD[facility] 1..840.114 350.1.13.10 4.2.7.2.686 [id number] [facility] 2021-06-08 09:30:00 2021-06-08 09:30:00 Outpatient ADRIA GONCALVES [facility] [id number] [facility] 2021-05-18 00:00:00 2021-05-18 00:00:00 Prep For Surgery [facility] Chad[facility] 1..840.114 350.1.13.10 4.2.7.2.686 [id number] [facility] 2021-05-17 09:00:00 2021-05-17 09:00:00 Outpatient SIMONE SULTANA [facility] [id number] [facility] 2021-05-16 09:48:58 2021-05-16 23:59:00 Outpatient SIMONE SULTANA [facility] [id number] [facility] 2021-05-16 09:48:58 2021-05-16 23:59:00 Hospital Encounter Simone Chadwick [facility] 1.2840.114 350.1.13.10 4.2.7.2.686 [id number] [facility] 2021-05-16 09:48:58 2021-05-16 23:59:00 Outpatient R SIMONE CHADWICK [facility] [id number] [facility] 2021-05-13 00:00:00 2021-05-13 00:00:00 Patient Secure Msg Doctor Unassigned, [place] [facility] 1.84.114 350.1.13.10 4.2.7.2.686 [id number] [facility] 2021-05-02 08:15:00 2021-05-02 08:45:25 Office Visit Simone Chadwick [facility] BUILDING 1.284.114 350.1.13.10 4.2.7.2.686 [id number] [facility] 2021-05-02 08:15:00 2021-05-02 08:45:25 Outpatient R SIMONE CHADWICK [facility] [id number] [facility] 2021-05-02 08:15:00 2021-05-02 08:45:25 Outpatient R SIMONE CHADWICK [facility] [id number] [facility] 2021-05-02 08:15:00 2021-05-02 08:15:00 [facility] [id number] [facility] 2021-04-12 14:29:41 2021-04-12 14:44:41 Disability Specialist Visit 2, [facility] 1.2.840.114 350.1.13.10 4.2.7.2.686 [id number] [facility] 2021-04-12 14:00:00 2021-04-12 14:26:59 Outpatient R SIMONE CHADWICK [facility] [id number] [facility] 2021-04-12 14:00:00 2021-04-12 14:26:59 Outpatient R SIMONE CHADWICK [facility] [id number] [facility] 2021-04-12 13:30:06 2021-04-12 14:26:59 Office Visit Simone Chadwick [facility] 1.2.840.114 350.1.13.10 4.2.7.2.686 [id number] [facility] 2021-04-06 10:13:36 2021-04-06 23:59:00 Outpatient R HARJIT SHERRY [facility] [id number] [facility] 2021-04-06 10:13:36 2021-04-06 23:59:00 Hospital Encounter HarjitLisbethcy [facility] 1..840.114 350.1.13.10 4.2.7.2.686 [id number] [facility] 2021-03-31 09:00:00 2021-03-31 09:00:00 Outpatient R HARJIT SHERRY [facility] [id number] [facility] 2021-03-31 08:41:50 2021-03-31 08:45:02 Disability Specialist Visit 2, Adc Lab Harjit Sherry [facility] 1.2.840.114 350.1.13.10 4.2.7.2.686 [id number] [facility] 2021-03-29 09:00:00 2021-03-29 09:41:29 Outpatient R HARJIT SHERRY [facility] [id number] [facility] 2021-03-29 08:44:30 2021-03-29 09:41:29 Office Visit Sherry Lombardi [facility] 1..840.114 350.1.13.10 4.2.7.2.686 [id number] [facility] 2021-03-29 09:00:00 2021-03-29 09:00:00 Outpatient R SHERRY LOMBARDI [facility] [id number] [facility] 2021-03-10 08:00:00 2021-03-10 08:00:00 Outpatient R [facility] [id number] [facility] 2021-03-10 08:00:00 2021-03-10 08:00:00 Outpatient R [facility] [id number] [facility] 2021-02-09 15:30:00 2021-02-09 16:09:21 Outpatient R [facility] [id number] [facility] 2021-02-09 15:15:17 2021-02-09 16:09:21 Office Visit Clayton [facility] BUILDING 1.2.840.114 350.1.13.10 4.2.7.2.686 [id number] [facility] 2021-02-09 00:00:00 2021-02-09 00:00:00 Letter (Out) Clayton [facility] Medical Office Building 1.2.840.114 350.1.13.10 4.2.7.2.686 [id number] [facility] 2020-12-02 00:00:00 2020-12-02 00:00:00 Refill Clayton [facility] nal Building 1..840.114 350.1.13.10 4.2.7.2.686 [id number] [facility] 2020-11-23 10:30:00 2020-11-23 10:30:00 Outpatient R [facility] [id number] [facility] 2020-08-24 10:47:09 2020-08-24 11:32:54 Office Visit Sara Arnold [facility] Building 1.2.840.114 350.1.13.10 4.2.7.2.686 [id number] [facility] 2020-08-24 11:30:00 2020-08-24 11:30:00 Outpatient R [facility] [id number] [facility] 2020-08-24 09:53:04 2020-08-24 10:46:27 Cyber Security Visit Shannon Macedo [facility] Building 1.2.840.114 350.1.13.10 4.2.7.2.686 [id number] [facility] 2020-08-06 10:50:25 2020-08-06 11:20:25 Office Visit Adria Torres [facility] Office Building One 1.2.840.114 350.1.13.10 4.2.7.2.686 [id number] [facility] 2020-08-06 11:15:00 2020-08-06 11:15:00 Outpatient R ADRIA TORRES [facility] [id number] [facility] 2020-07-20 00:00:00 2020-07-20 00:00:[address] [facility] Building 1.2.840.114 350.1.13.10 4.2.7.2.686 [id number] [facility] 2020-05-16 00:00:00 2020-05-16 00:00:00 Patient Secure Msg Clayton [facility] BUILDING 1.2.840.114 350.1.13.10 4.2.7.2.686 [id number] [facility] 2020-04-15 13:00:00 2020-04-15 13:00:00 Outpatient R SIMOEN CHADWICK [facility] [id number] [facility] 2020-04-14 08:45:00 2020-04-14 08:45:00 Outpatient R [facility] [id number] [facility] 2020-04-14 08:21:13 2020-04-14 08:36:13 Disability Specialist Visit 2, Adc Lab [place] [facility] Building 1.2.840.114 350.1.13.10 4.2.7.2.686 [id number] [facility] 2020-04-07 11:25:21 2020-04-07 12:44:[address] [facility] Building 1.2.840.114 350.1.13.10 4.2.7.2.686 [id number] [facility] 2020-04-07 11:30:00 2020-04-07 11:30:00 [facility] [id number] [facility] 2020-03-29 10:19:56 2020-03-29 11:09:43 Office Visit Sherry Lombardi [facility] Building 1.2.840.114 350.1.13.10 4.2.7.2.686 [id number] [facility] 2020-03-29 10:15:00 2020-03-29 10:15:00 Outpatient [facility] [id number] [facility] 2020-03-09 09:00:00 2020-03-09 09:00:00 [facility] [id number] [facility] 2020-03-01 08:00:00 2020-03-01 08:00:00 [facility] [id number] [facility] 2020-03-01 08:00:00 2020-03-01 08:00:00 Outpatient R SHERRY LOMBARDI [facility] [id number] [facility] 2020-02-06 11:00:00 2020-02-06 11:00:00 Outpatient R REM[facility] [id number] [facility] 2020-01-11 00:00:00 2020-01-11 00:00:[address] [facility] Building 1.84.114 350.1.13.10 4.2.7.2.686 [id number] [facility] 2019-12-18 00:00:00 2019-12-18 00:00:00 Patient Secure Msg Clayton [facility] Building 1..114 350.1.13.10 4.2.7.2.686 [id number] [facility] 2019-12-15 09:02:10 2019-12-15 09:17:10 Disability Specialist Visit Pob, Adc Lab Main Clayton [facility] Building 1..114 350.1.13.10 4.2.7.2.686 [id number] [facility] 2019-12-15 09:00:00 2019-12-15 09:00:00 Outpatient R [facility] [id number] [facility] 2019-11-05 14:50:54 2019-11-05 16:04:37 Cyber Security Visit Remington, [facility] 1.114 350.1.13.10 4.2.7.2.686 [id number] [facility] 2019-11-05 09:08:24 2019-11-05 10:37:[address] [facility] Building 1.2.84.114 350.1.13.10 4.2.7.2.686 [id number] [facility] 2019-11-05 09:30:00 2019-11-05 09:30:00 Outpatient R [facility] [id number] [facility] 2019-10-08 00:00:00 2019-10-08 00:00:[address] [facility] Building 1.2.840.114 350.1.13.10 4.2.7.2.686 [id number] [facility] 2019-10-02 12:00:00 2019-10-02 12:00:00 Outpatient R REMINGTON [facility] [id number] [facility] 2019-09-29 05:21:00 2019-09-29 05:21:00 Outpatient 3 Miriam Arce [facility] [id number] [facility] 2019-09-22 00:00:00 2019-09-22 00:00:00 Telephone [facility] Building 1..840.114 350.1.13.10 4.2.7.2.686 [id number] [facility] 2019-09-08 00:00:00 2019-09-08 00:00:00 Orders Only Doctor Unassigned, [place] [facility] 1.2840.114 350.1.13.10 4.2.7.2.686 [id number] [facility] 2019-07-30 00:00:00 2019-07-30 00:00:00 Patient Secure Msg [place] [facility] 1.2.840.114 350.1.13.10 4.2.7.2.686 [id number] [facility] 2019-07-29 10:00:00 2019-07-29 10:00:00 Outpatient R ARCHANA [facility] [id number] [facility] 2019-07-22 11:13:50 2019-07-22 11:47:39 Cyber Security Visit [facility] 1.2840.114 350.1.13.10 4.2.7.2.686 [id number] [facility] 2019-07-22 11:00:00 2019-07-22 11:00:00 Outpatient R [facility] [id number] [facility] 2019-07-22 00:00:00 2019-07-22 00:00:00 Telephone [facility] 1.2840.114 350.1.13.10 4.2.7.2.686 [id number] [facility] 2019-07-20 00:00:00 2019-07-20 00:00:00 Patient Secure Msg Doctor Unassigned, [place] [facility] 1..114 350.1.13.10 4.2.7.2.686 [id number] [facility] 2019-07-02 10:40:11 2019-07-02 10:55:11 Disability Specialist Visit 2, [facility] [place] 1.2.114 350.1.13.10 4.2.7.2.686 [id number] [facility] 2019-07-02 09:30:00 2019-07-02 10:34:01 Outpatient R [facility] [id number] [facility] 2019-07-02 09:16:08 2019-07-02 10:34:01 Office Visit Clayton [facility] 1.284.114 350.1.13.10 4.2.7.2.686 [id number] [facility] 2019-06-25 15:00:00 2019-06-25 15:41:02 Outpatient R HERBERTADRIA [facility] [id number] [facility] 2019-06-25 15:21:27 2019-06-25 15:36:27 Office Visit Adria Torres [facility] Office Building One 1..840.114 350.1.13.10 4.2.7.2.686 [id number] [facility] 2019-06-25 00:00:00 2019-06-25 00:00:00 Orders Only Doctor Unassigned, [place] [facility] 1.840.114 350.1.13.10 4.2.7.2.686 [id number] [facility] 2019-04-22 08:00:00 2019-04-22 09:16:07 [facility] [id number] [facility] 2019-02-27 08:00:00 2019-02-27 08:53:50 Outpatient R SHERRY LOMBARDI [facility] [id number] [facility] 2019-01-03 00:00:00 2019-01-03 00:00:00 Magda Hdz [facility] Building 1..840.114 350.1.13.10 4.2.7.2.686 [id number] [facility] 2018-12-19 08:41:11 2018-12-19 09:08:03 Office Visit Adria Landaverde [facility] Building 1..840.114 350.1.13.10 4.2.7.2.686 [id number] [facility] 2018-11-07 09:00:00 2018-11-07 10:10:50 Outpatient [facility] [id number] [facility] 2018-10-01 07:55:00 2018-10-01 11:02:00 Outpatient SIMONE SULTANA [facility] [id number] [facility] 2018-08-27 08:45:00 2018-08-27 08:45:00 Outpatient MAGDA CHUNG [facility] [id number] [facility] 2018-08-02 10:15:00 2018-08-02 10:15:00 [facility] [id number] [facility] Results Test Description Test Time Test Comments Results Result Co mments Source [facility] GLUCOSE (AUTOMATED)2023-12-13 12:37:07* Test Item Value Reference Range Interpretation Comme nts POCT GLU (test code = 1590237794) 177 mg/dL 70-110 H Lab Interpretation (test cod e = 69229-4) Abnormal [facility] Hemoglobin A1C [id number] 14:58:00* Test Item Value Reference Range Interpretation Comme nts POCT HBA1C (test code = 4548-4) 8.3 % 4-6 A Lab Interpretation (test cod e = 22259-8) Abnormal [facility] SARS-COV-2 ANTIGEN (BINAX NOW)2023-10-12 15:54:00* Test Item Value Reference Range Interpretation Comme nts POCT SARS-COV-2 ANTIGEN (dejan t code = 43160-3) Not Detected Not Detected On board controls acceptable with C Line (test code = 3574) Yes Lab Interpretation (test cod e = 67701-3) Normal [facility] MOLECULAR [id number] 15:35:57* Test Item Value Reference Range Interpretation Comme nts POCT Molecular Strep (test c ode = 95773-1) Negative Negative Lab Interpretation (test cod e = 36864-9) Normal [facility] MOLECULAR [id number] 15:35:57* Test Item Value Reference Range Interpretation Comme nts POCT Molecular Strep (test c ode = 25323-6) Negative Negative Lab Interpretation (test cod e = 72763-4) Normal [facility] MOLECULAR [id number] 15:35:57* Test Item Value Reference Range Interpretation Comme nts POCT Molecular Strep (test c ode = 82127-5) Negative Negative Lab Interpretation (test cod e = 82120-4) Normal [facility] GLUCOSE (AUTOMATED)2023-07-02 17:23:48* Test Item Value Reference Range Interpretation Comme nts POCT GLU (test code = 8581432252) 158 mg/dL 70-110 H Lab Interpretation (test cod e = 74636-5) Abnormal [facility] GLUCOSE (AUTOMATED)2023-07-02 17:23:48* Test Item Value Reference Range Interpretation Comme nts POCT GLU (test code = 1844716862) 158 mg/dL 70-110 H Lab Interpretation (test cod e = 53592-0) Abnormal [facility] with [id number] 15:11:31* Test Item Value Reference Range Interpretation Comme nts WBC (test code = 6690-2) 4.96 4.30-11.10 RBC (test code = 789-8) 4.46 3.93-5.25 HGB (test code = 718-7) 13.4 g/dL 11.6-15.0 HCT (test code = 4544-3) 40.4 % 35.7-45.2 MCV (test code = 787-2) 90.6 fL 80.6-95.5 MCH (test code = 785-6) 30.0 pg 25.9-32.8 MCHC (test code = 786-4) 33.2 g/dL 31.6-35.1 RDW-SD (test code = 43519-1) 45.4 fL 39.0-49.9 RDW-CV (test code = 788-0) 13.7 % 12.0-15.5 PLT (test code = 777-3) 245 166-358 MPV (test code = 03374-3) 10.5 fL 9.5-12.9 NRBC/100 WBC (test code = 8890199190) 0.0 0.0-10.0 NRBC x10^3 (test code = 7776385398) See_Comment [Automated me ssage] The system which generated this result transmitted reference range: 10*3/?L. The reference range was not used to interpret this result as normal/abnormal. GRAN MAT (NEUT) % (test code = 770-8) 42.7 % IMM GRAN % (test code = 2790100483) 0.20 % LYMPH % (test code = 736-9) 45.8 % MONO % (test code = 5905-5) 8.1 % EOS % (test code = 713-8) 2.4 % BASO % (test code = 706-2) 0.8 % GRAN MAT x10^3(ANC) (test code = 9874907210) 2.12 10*3/uL 1.88-7.09 IMM GRAN x10^3 (test code = 6700289122) 0.00-0.06 LYMPH x10^3 (test code = 731-0) 2.27 10*3/uL 1.32-3.29 MONO x10^3 (test code = 742-7) 0.40 10*3/uL 0.33-0.92 EOS x10^3 (test code = 711-2) 0.12 10*3/uL 0.03-0.39 BASO x10^3 (test code = 704-7) 0.04 10*3/uL 0.01-0.07 [facility] GLUCOSE (AUTOMATED)2023-04-25 18:42:48* Test Item Value Reference Range Interpretation Comme [facility] POCT GLU (test code = 1806464242) 288 mg/dL 70-110 H Lab Interpretation (test cod e = 93318-4) Abnormal [facility] GLUCOSE (AUTOMATED)2023-04-25 00:13:49* Test Item Value Reference Range Interpretation Comme [facility] POCT GLU (test code = 2582726960) 207 mg/dL 70-110 H Lab Interpretation (test cod e = 09089-3) Abnormal [facility] WITH [id number] 13:18:14* Test Item Value Reference Range Interpretation Comme nts WBC (test code = 6690-2) 4.25 See_Comment L [Automated messa ge] The system which generated this result transmitted reference range: 4.30 - 11.10 10*3/?L. The reference range was not used to interpret this result as normal/abnormal. RBC (test code = 789-8) 3.11 See_Comment L [Automated messa ge] The system which generated this result transmitted reference range: 3.93 - 5.25 10*6/?L. The reference range was not used to interpret this result as normal/abnormal. HGB (test code = 718-7) 9.8 g/dL 11.6-15.0 L HCT (test code = 4544-3) 29.2 % 35.7-45.2 L MCV (test code = 787-2) 93.9 fL 80.6-95.5 MCH (test code = 785-6) 31.5 pg 25.9-32.8 MCHC (test code = 786-4) 33.6 g/dL 31.6-35.1 RDW-SD (test code = 65380-0) 42.3 fL 39.0-49.9 RDW-CV (test code = 788-0) 12.3 % 12.0-15.5 PLT (test code = 777-3) 126 See_Comment L [Automated messa ge] The system which generated this result transmitted reference range: 166 - 358 10*3/?L. The reference range was not used to interpret this result as normal/abnormal. MPV (test code = 04134-4) 11.3 fL 9.5-12.9 IPF % (test code = 6590880752) 6.0 % 1.3-7.7 Platelet count measured by fluorescence method. NRBC/100 WBC (test code = 5817820684) 0.0 See_Comment [Automated [employer] ssage] The system which generated this result transmitted reference range: 0.0 - 10.0 /100 WBCs. The reference range was not used to interpret this result as normal/abnormal. NRBC x10^3 (test code = 4920318263) See_Comment [Automated myGreeka ge] The system which generated this result transmitted reference range: 10*3/?L. The reference range was not used to interpret this result as normal/abnormal. GRAN MAT (NEUT) % (test code = 770-8) 72.0 % IMM GRAN % (test code = 8044035249) 0.50 % LYMPH % (test code = 736-9) 13.4 % MONO % (test code = 5905-5) 9.6 % EOS % (test code = 713-8) 4.0 % BASO % (test code = 706-2) 0.5 % GRAN MAT x10^3(ANC) (test code = 9070921819) 3.06 10*3/uL 1.88-7.09 IMM GRAN x10^3 (test code = 0452626800) 0.00-0.06 LYMPH x10^3 (test code = 731-0) 0.57 10*3/uL 1.32-3.29 L MONO x10^3 (test code = 742-7) 0.41 10*3/uL 0.33-0.92 EOS x10^3 (test code = 711-2) 0.17 10*3/uL 0.03-0.39 BASO x10^3 (test code = 704-7) 0.01-0.07 Lab Interpretation (test code = 44655-9) [facility] 12:12:33* Test Item Value Reference Range Interpretation Comme nts POCT GLU (test code = 3123551079) 181 mg/dL 70-110 H Lab Interpretation (test cod e = 51436-5) [facility] 11:47:06* Test Item Value Reference Range Interpretation Comme nts MAGNESIUM (test code = 3015780744) 2.0 mg/dL 1.7-2.4 Lab Interpretation (test cod e = 94460-5) [facility] (NA, K, CL, CO2, GLUCOSE, BUN, CREATININE, CA)2023-04-24 11:46:45* Test Item Value Reference Range Interpretation Comme nts NA (test code = 5208999315) 133 mmol/L 135-145 L K (test code = 2992139683) 3.8 mmol/L 3.5-5.0 CL (test code = 4394577017) 105 mmol/L 98-108 CO2 TOTAL (test code = 7020726911) 19 mmol/L 23-31 L AGAP (test code = 5769948431) 9 2-16 BUN (test code = 2751898527) 9 mg/dL 7-23 GLUCOSE (test code = 3435107813) 173 mg/dL 70-110 H CREATININE (test code = 2141284609) 0.31 mg/dL 0.50-1.04 L CALCIUM (test code = 0356779263) 7.6 mg/dL 8.6-10.6 L eGFR (test code = 03215-6) 135.8 mL/min/1.73m2 CKD-EPI eGFR (2020). Assuming creatinine has been stable day-to-day for at least three months, the eGFR indicates Category G1 (>= 90 mL/min/1.73 m2) Lab Interpretation (test code = 44254-9) [facility] 11:46:25* Test Item Value Reference Range Interpretation Comme nts PHOSPHORUS (test code = 1584211066) 2.6 mg/dL 2.5-5.0 Lab Interpretation (test cod e = 32914-0) Normal [facility] GLUCOSE (AUTOMATED)2023-04-24 06:11:27* Test Item Value Reference Range Interpretation Comme nts POCT GLU (test code = 3720251040) 169 mg/dL 70-110 H Lab Interpretation (test cod e = 52414-2) Abnormal [facility] GLUCOSE (AUTOMATED)2023-04-24 00:42:16* Test Item Value Reference Range Interpretation Comme nts POCT GLU (test code = 7710111244) 193 mg/dL 70-110 H Lab Interpretation (test cod e = 55794-0) Abnormal [facility] GLUCOSE (AUTOMATED)2023-04-23 17:36:41* Test Item Value Reference Range Interpretation Comme nts POCT GLU (test code = 0586025720) 208 mg/dL 70-110 H Lab Interpretation (test cod e = 78222-2) Abnormal [facility] GLUCOSE (AUTOMATED)2023-04-23 17:36:41* Test Item Value Reference Range Interpretation Comme nts POCT GLU (test code = 8196962826) 208 mg/dL 70-110 H Lab Interpretation (test cod e = 20245-5) [facility] 13:00:49* Test Item Value Reference Range Interpretation Comme nts MAGNESIUM (test code = 0999733658) 1.6 mg/dL 1.7-2.4 L Lab Interpretation (test cod e = 82756-8) [facility] 13:00:49* Test Item Value Reference Range Interpretation Comme nts MAGNESIUM (test code = 9699510024) 1.6 mg/dL 1.7-2.4 L Lab Interpretation (test cod e = 07656-8) Abnormal [facility] METABOLIC PANEL (NA, K, CL, CO2, GLUCOSE, BUN, CREATININE, CA)2023-04-23 13:00:48* Test Item Value Reference Range Interpretation Comme nts NA (test code = 5119566179) 132 mmol/L 135-145 L K (test code = 4261497228) 3.6 mmol/L 3.5-5.0 CL (test code = 9125903378) 104 mmol/L 98-108 CO2 TOTAL (test code = 0301900764) 21 mmol/L 23-31 L AGAP (test code = 1787953718) 7 2-16 BUN (test code = 8803442237) 6 mg/dL 7-23 L GLUCOSE (test code = 8080760805) 198 mg/dL 70-110 H CREATININE (test code = 5752652308) 0.49 mg/dL 0.50-1.04 L CALCIUM (test code = 5944800044) 7.9 mg/dL 8.6-10.6 L eGFR (test code = 28176-5) 121.6 mL/min/1.73m2 CKD-EPI eGFR (2020). Assuming creatinine has been stable day-to-day for at least three months, the eGFR indicates Category G1 (>= 90 mL/min/1.73 m2) Lab Interpretation (test code = 54251-4) Abnormal [facility] METABOLIC PANEL (NA, K, CL, CO2, GLUCOSE, BUN, CREATININE, CA)2023-04-23 13:00:48* Test Item Value Reference Range Interpretation Comme nts NA (test code = 1174060570) 132 mmol/L 135-145 L K (test code = 8972610728) 3.6 mmol/L 3.5-5.0 CL (test code = 6103191619) 104 mmol/L 98-108 CO2 TOTAL (test code = 8320588287) 21 mmol/L 23-31 L AGAP (test code = 6171780253) 7 2-16 BUN (test code = 2686616216) 6 mg/dL 7-23 L GLUCOSE (test code = 7640101776) 198 mg/dL 70-110 H CREATININE (test code = 5278970546) 0.49 mg/dL 0.50-1.04 L CALCIUM (test code = 5380308117) 7.9 mg/dL 8.6-10.6 L eGFR (test code = 89754-7) 121.6 mL/min/1.73m2 CKD-EPI eGFR (2020). Assuming creatinine has been stable day-to-day for at least three months, the eGFR indicates Category G1 (>= 90 mL/min/1.73 m2) Lab Interpretation (test code = 84540-2) [facility] 13:00:28* Test Item Value Reference Range Interpretation Comme nts PHOSPHORUS (test code = 3888241885) 2.6 mg/dL 2.5-5.0 Lab Interpretation (test cod e = 57636-0) [facility] 13:00:28* Test Item Value Reference Range Interpretation Comme nts PHOSPHORUS (test code = 4567619972) 2.6 mg/dL 2.5-5.0 Lab Interpretation (test cod e = 18096-0) [facility] [id number] 12:09:21* Test Item Value Reference Range Interpretation Comme nts WBC (test code = 6690-2) 4.81 See_Comment [Automated message] The system which generated this result transmitted reference range: 4.30 - 11.10 10*3/?L. The reference range was not used to interpret this result as normal/abnormal. RBC (test code = 789-8) 3.59 See_Comment L [Automated message] The system which generated this result transmitted reference range: 3.93 - 5.25 10*6/?L. The reference range was not used to interpret this result as normal/abnormal. HGB (test code = 718-7) 11.4 g/dL 11.6-15.0 L HCT (test code = 4544-3) 34.1 % 35.7-45.2 L MCV (test code = 787-2) 95.0 fL 80.6-95.5 MCH (test code = 785-6) 31.8 pg 25.9-32.8 MCHC (test code = 786-4) 33.4 g/dL 31.6-35.1 RDW-SD (test code = 21735-8) 42.7 fL 39.0-49.9 RDW-CV (test code = 788-0) 12.1 % 12.0-15.5 PLT (test code = 777-3) 137 See_Comment L [Automated message] The system which generated this result transmitted reference range: 166 - 358 10*3/?L. The reference range was not used to interpret this result as normal/abnormal. MPV (test code = 52692-4) 11.2 fL 9.5-12.9 IPF % (test code = 4861107289) 5.2 % 1.3-7.7 Platelet count measured by fluorescence method. NRBC/100 WBC (test code = 3245728667) 0.0 See_Comment [Automated message] The system which generated this result transmitted reference range: 0.0 - 10.0 /100 WBCs. The reference range was not used to interpret this result as normal/abnormal. NRBC x10^3 (test code = 4895482009) See_Comment [Automated message] The system which generated this result transmitted reference range: 10*3/?L. The reference range was not used to interpret this result as normal/abnormal. GRAN MAT (NEUT) % (test code = 770-8) 72.2 % IMM GRAN % (test code = 0445077071) 0.40 % LYMPH % (test code = 736-9) 18.5 % MONO % (test code = 5905-5) 5.8 % EOS % (test code = 713-8) 2.7 % BASO % (test code = 706-2) 0.4 % GRAN MAT x10^3(ANC) (test code = 2882383359) 3.47 10*3/uL 1.88-7.09 IMM GRAN x10^3 (test code = 2175816157) 0.00-0.06 LYMPH x10^3 (test code = 731-0) 0.89 10*3/uL 1.32-3.29 L MONO x10^3 (test code = 742-7) 0.28 10*3/uL 0.33-0.92 L EOS x10^3 (test code = 711-2) 0.13 10*3/uL 0.03-0.39 BASO x10^3 (test code = 704-7) 0.01-0.07 BANDS (test code = 1340281763) MARKED INCREASED A DOHLE BODIES (test code = 7792-5) Present A TOXIC CHANGES (test code = 803-7) Present A Lab Interpretation (test code = 20098-1) Abnormal [facility] WITH [id number] 12:09:21* Test Item Value Reference Range Interpretation Comme nts WBC (test code = 6690-2) 4.81 See_Comment [Automated message] The system which generated this result transmitted reference range: 4.30 - 11.10 10*3/?L. The reference range was not used to interpret this result as normal/abnormal. RBC (test code = 789-8) 3.59 See_Comment L [Automated message] The system which generated this result transmitted reference range: 3.93 - 5.25 10*6/?L. The reference range was not used to interpret this result as normal/abnormal. HGB (test code = 718-7) 11.4 g/dL 11.6-15.0 L HCT (test code = 4544-3) 34.1 % 35.7-45.2 L MCV (test code = 787-2) 95.0 fL 80.6-95.5 MCH (test code = 785-6) 31.8 pg 25.9-32.8 MCHC (test code = 786-4) 33.4 g/dL 31.6-35.1 RDW-SD (test code = 23598-5) 42.7 fL 39.0-49.9 RDW-CV (test code = 788-0) 12.1 % 12.0-15.5 PLT (test code = 777-3) 137 See_Comment L [Automated message] The system which generated this result transmitted reference range: 166 - 358 10*3/?L. The reference range was not used to interpret this result as normal/abnormal. MPV (test code = 26509-2) 11.2 fL 9.5-12.9 IPF % (test code = 6924733255) 5.2 % 1.3-7.7 Platelet count measured by fluorescence method. NRBC/100 WBC (test code = 7209650499) 0.0 See_Comment [Automated message] The system which generated this result transmitted reference range: 0.0 - 10.0 /100 WBCs. The reference range was not used to interpret this result as normal/abnormal. NRBC x10^3 (test code = 3803401860) See_Comment [Automated message] The system which generated this result transmitted reference range: 10*3/?L. The reference range was not used to interpret this result as normal/abnormal. GRAN MAT (NEUT) % (test code = 770-8) 72.2 % IMM GRAN % (test code = 4349023161) 0.40 % LYMPH % (test code = 736-9) 18.5 % MONO % (test code = 5905-5) 5.8 % EOS % (test code = 713-8) 2.7 % BASO % (test code = 706-2) 0.4 % GRAN MAT x10^3(ANC) (test code = 8949463385) 3.47 10*3/uL 1.88-7.09 IMM GRAN x10^3 (test code = 5031441058) 0.00-0.06 LYMPH x10^3 (test code = 731-0) 0.89 10*3/uL 1.32-3.29 L MONO x10^3 (test code = 742-7) 0.28 10*3/uL 0.33-0.92 L EOS x10^3 (test code = 711-2) 0.13 10*3/uL 0.03-0.39 BASO x10^3 (test code = 704-7) 0.01-0.07 BANDS (test code = 7526005303) MARKED INCREASED A DOHLE BODIES (test code = 7792-5) Present A TOXIC CHANGES (test code = 803-7) Present A Lab Interpretation (test code = 49521-9) [facility] 11:57:41* Test Item Value Reference Range Interpretation Comme nts POCT GLU (test code = 7504372160) 187 mg/dL 70-110 H Lab Interpretation (test cod e = 71996-6) [facility] 11:57:41* Test Item Value Reference Range Interpretation Comme nts POCT GLU (test code = 4141738613) 187 mg/dL 70-110 H Lab Interpretation (test cod e = 03699-5) Abnormal [facility] GLUCOSE (AUTOMATED)2023-04-23 06:59:10* Test Item Value Reference Range Interpretation Comme nts POCT GLU (test code = 5453511020) 184 mg/dL 70-110 H Lab Interpretation (test cod e = 43136-2) Abnormal [facility] GLUCOSE (AUTOMATED)2023-04-23 06:59:10* Test Item Value Reference Range Interpretation Comme nts POCT GLU (test code = 7763240708) 184 mg/dL 70-110 H Lab Interpretation (test cod e = 45840-5) Abnormal [facility] GLUCOSE (AUTOMATED)2023-04-22 22:46:37* Test Item Value Reference Range Interpretation Comme nts POCT GLU (test code = 8718168005) 184 mg/dL 70-110 H Lab Interpretation (test cod e = 84356-9) Abnormal [facility] GLUCOSE (AUTOMATED)2023-04-22 22:46:37* Test Item Value Reference Range Interpretation Comme nts POCT GLU (test code = 7876051078) 184 mg/dL 70-110 H Lab Interpretation (test cod e = 12230-7) Abnormal [facility] GLUCOSE (AUTOMATED)2023-04-22 18:19:12* Test Item Value Reference Range Interpretation Comme nts POCT GLU (test code = 9520300384) 208 mg/dL 70-110 H Lab Interpretation (test cod e = 39837-0) Abnormal [facility] GLUCOSE (AUTOMATED)2023-04-22 18:19:12* Test Item Value Reference Range Interpretation Comme nts POCT GLU (test code = 5971029352) 208 mg/dL 70-110 H Lab Interpretation (test cod e = 76335-8) Abnormal [facility] GLUCOSE (AUTOMATED)2023-04-22 13:44:12* Test Item Value Reference Range Interpretation Comme nts POCT GLU (test code = 3331325453) 281 mg/dL 70-110 H Lab Interpretation (test cod e = 43229-5) Abnormal [facility] GLUCOSE (AUTOMATED)2023-04-22 13:44:12* Test Item Value Reference Range Interpretation Comme nts POCT GLU (test code = 8777915467) 281 mg/dL 70-110 H Lab Interpretation (test cod e = 17227-8) [facility] / [id number] 06:05:43* Test Item Value Reference Range Interpretation Comme nts PROTIME PATIENT (test code = 5964-2) 11.4 See_Comment L [Automated messa ge] The system which generated this result transmitted reference range: 12.0 - 14.7 Seconds. The reference range was not used to interpret this result as normal/abnormal. INR (test code = 6301-6) 0.9 Normal INR <1.1; Warfarin Therapeutic range 2.0 to 3.0 or 2.5 to 3.5, depending upon the indications. Lab Interpretation (test code = 33427-2) [facility] / [id number] 06:05:43* Test Item Value Reference Range Interpretation Comme nts PROTIME PATIENT (test code = 5964-2) 11.4 See_Comment L [Automated messa ge] The system which generated this result transmitted reference range: 12.0 - 14.7 Seconds. The reference range was not used to interpret this result as normal/abnormal. INR (test code = 6301-6) 0.9 Normal INR <1.1; Warfarin Therapeutic range 2.0 to 3.0 or 2.5 to 3.5, depending upon the indications. Lab Interpretation (test code = 82550-7) Abnormal [facility]. METABOLIC PANEL (17375)2023-04-21 02:30:54* Test Item Value Reference Range Interpretation Comme nts NA (test code = 3818625402) 137 mmol/L 135-145 K (test code = 0864981480) 3.4 mmol/L 3.5-5.0 L CL (test code = 8614776452) 101 mmol/L 98-108 CO2 TOTAL (test code = 8996037646) 26 mmol/L 23-31 AGAP (test code = 0344158281) 10 2-16 BUN (test code = 5454496348) 16 mg/dL 7-23 GLUCOSE (test code = 3338496932) 239 mg/dL 70-110 H CREATININE (test code = 0789387671) 0.51 mg/dL 0.50-1.04 TOTAL BILI (test code = 0351268870) 0.5 mg/dL 0.1-1.1 CALCIUM (test code = 6074146561) 9.4 mg/dL 8.6-10.6 T PROTEIN (test code = 7376141222) 7.9 g/dL 6.3-8.2 ALBUMIN (test code = 2271073053) 4.5 g/dL 3.5-5.0 ALK PHOS (test code = 4593756068) 75 U/L 34-122 ALTv (test code = 1742-6) 24 U/L 5-35 AST(SGOT) (test code = 6729026744) 25 U/L 13-40 eGFR (test code = 72327-2) 120.4 mL/min/1.73m2 CKD-EPI eGFR (2020). Assuming creatinine has been stable day-to-day for at least three months, the eGFR indicates Category G1 (>= 90 mL/min/1.73 m2) Lab Interpretation (test code = 62848-6) Abnormal [facility]. METABOLIC PANEL (12323)2023-04-21 02:30:54* Test Item Value Reference Range Interpretation Comme nts NA (test code = 6557411380) 137 mmol/L 135-145 K (test code = 8072221256) 3.4 mmol/L 3.5-5.0 L CL (test code = 5468013185) 101 mmol/L 98-108 CO2 TOTAL (test code = 0441146977) 26 mmol/L 23-31 AGAP (test code = 7288585624) 10 2-16 BUN (test code = 9376826398) 16 mg/dL 7-23 GLUCOSE (test code = 1219619518) 239 mg/dL 70-110 H CREATININE (test code = 2954409177) 0.51 mg/dL 0.50-1.04 TOTAL BILI (test code = 6140033277) 0.5 mg/dL 0.1-1.1 CALCIUM (test code = 1771302602) 9.4 mg/dL 8.6-10.6 T PROTEIN (test code = 5538316792) 7.9 g/dL 6.3-8.2 ALBUMIN (test code = 7845406733) 4.5 g/dL 3.5-5.0 ALK PHOS (test code = 0023875568) 75 U/L 34-122 ALTv (test code = 1742-6) 24 U/L 5-35 AST(SGOT) (test code = 6844521093) 25 U/L 13-40 eGFR (test code = 23238-5) 120.4 mL/min/1.73m2 CKD-EPI eGFR (2020). Assuming creatinine has been stable day-to-day for at least three months, the eGFR indicates Category G1 (>= 90 mL/min/1.73 m2) Lab Interpretation (test code = 25386-2) Abnormal [facility] [facility]2023-[facility] 02:30:34* Test Item Value Reference Range Interpretation Comme nts LIPASE (test code = 0765967727) 46 U/L 0-220 Lab Interpretation (test cod e = 21800-0) [facility] Test Item Value Reference Range Interpretation Comme nts LIPASE (test code = 5102191182) 46 U/L 0-220 Lab Interpretation (test cod e = 52889-9) [facility] [id number] 02:22:34* Test Item Value Reference Range Interpretation Comme nts WBC (test code = 6690-2) 11.72 See_Comment H [Automated messa ge] The system which generated this result transmitted reference range: 4.30 - 11.10 10*3/?L. The reference range was not used to interpret this result as normal/abnormal. RBC (test code = 789-8) 4.94 See_Comment [Automated messa ge] The system which generated this result transmitted reference range: 3.93 - 5.25 10*6/?L. The reference range was not used to interpret this result as normal/abnormal. HGB (test code = 718-7) 15.8 g/dL 11.6-15.0 H HCT (test code = 4544-3) 45.6 % 35.7-45.2 H MCV (test code = 787-2) 92.3 fL 80.6-95.5 MCH (test code = 785-6) 32.0 pg 25.9-32.8 MCHC (test code = 786-4) 34.6 g/dL 31.6-35.1 RDW-SD (test code = 42191-2) 41.0 fL 39.0-49.9 RDW-CV (test code = 788-0) 12.1 % 12.0-15.5 PLT (test code = 777-3) 290 See_Comment [Automated messa ge] The system which generated this result transmitted reference range: 166 - 358 10*3/?L. The reference range was not used to interpret this result as normal/abnormal. MPV (test code = 53024-3) 11.3 fL 9.5-12.9 NRBC/100 WBC (test code = 8829537082) 0.0 See_Comment [Automated [employer] ssage] The system which generated this result transmitted reference range: 0.0 - 10.0 /100 WBCs. The reference range was not used to interpret this result as normal/abnormal. NRBC x10^3 (test code = 1362694034) See_Comment [Automated messa ge] The system which generated this result transmitted reference range: 10*3/?L. The reference range was not used to interpret this result as normal/abnormal. GRAN MAT (NEUT) % (test code = 770-8) 60.9 % IMM GRAN % (test code = 3511359732) 0.30 % LYMPH % (test code = 736-9) 33.4 % MONO % (test code = 5905-5) 3.7 % EOS % (test code = 713-8) 1.3 % BASO % (test code = 706-2) 0.4 % GRAN MAT x10^3(ANC) (test code = 8184352801) 7.15 10*3/uL 1.88-7.09 H IMM GRAN x10^3 (test code = 2729684255) 0.03 10*3/uL 0.00-0.06 LYMPH x10^3 (test code = 731-0) 3.91 10*3/uL 1.32-3.29 H MONO x10^3 (test code = 742-7) 0.43 10*3/uL 0.33-0.92 EOS x10^3 (test code = 711-2) 0.15 10*3/uL 0.03-0.39 BASO x10^3 (test code = 704-7) 0.05 10*3/uL 0.01-0.07 Lab Interpretation (test code = 06711-7) Abnormal [facility] WITH [id number] 02:22:34* Test Item Value Reference Range Interpretation Comme nts WBC (test code = 6690-2) 11.72 See_Comment H [Automated messa ge] The system which generated this result transmitted reference range: 4.30 - 11.10 10*3/?L. The reference range was not used to interpret this result as normal/abnormal. RBC (test code = 789-8) 4.94 See_Comment [Automated messa ge] The system which generated this result transmitted reference range: 3.93 - 5.25 10*6/?L. The reference range was not used to interpret this result as normal/abnormal. HGB (test code = 718-7) 15.8 g/dL 11.6-15.0 H HCT (test code = 4544-3) 45.6 % 35.7-45.2 H MCV (test code = 787-2) 92.3 fL 80.6-95.5 MCH (test code = 785-6) 32.0 pg 25.9-32.8 MCHC (test code = 786-4) 34.6 g/dL 31.6-35.1 RDW-SD (test code = 58683-3) 41.0 fL 39.0-49.9 RDW-CV (test code = 788-0) 12.1 % 12.0-15.5 PLT (test code = 777-3) 290 See_Comment [Automated messa ge] The system which generated this result transmitted reference range: 166 - 358 10*3/?L. The reference range was not used to interpret this result as normal/abnormal. MPV (test code = 59069-3) 11.3 fL 9.5-12.9 NRBC/100 WBC (test code = 2127696563) 0.0 See_Comment [Automated me ssage] The system which generated this result transmitted reference range: 0.0 - 10.0 /100 WBCs. The reference range was not used to interpret this result as normal/abnormal. NRBC x10^3 (test code = 2040221768) See_Comment [Automated messa ge] The system which generated this result transmitted reference range: 10*3/?L. The reference range was not used to interpret this result as normal/abnormal. GRAN MAT (NEUT) % (test code = 770-8) 60.9 % IMM GRAN % (test code = 7333931235) 0.30 % LYMPH % (test code = 736-9) 33.4 % MONO % (test code = 5905-5) 3.7 % EOS % (test code = 713-8) 1.3 % BASO % (test code = 706-2) 0.4 % GRAN MAT x10^3(ANC) (test code = 5259294394) 7.15 10*3/uL 1.88-7.09 H IMM GRAN x10^3 (test code = 8520975691) 0.03 10*3/uL 0.00-0.06 LYMPH x10^3 (test code = 731-0) 3.91 10*3/uL 1.32-3.29 H MONO x10^3 (test code = 742-7) 0.43 10*3/uL 0.33-0.92 EOS x10^3 (test code = 711-2) 0.15 10*3/uL 0.03-0.39 BASO x10^3 (test code = 704-7) 0.05 10*3/uL 0.01-0.07 Lab Interpretation (test code = 83116-0) Abnormal [facility] [id number] 03:31:00* Test Item Value Reference Range Interpretation Comme nts POCT PREG (test code = 1605) Negative On board controls acceptable with C Line (test code = 3574) Yes POCT PREG LOT # (test code = 3571) [id number] POCT PREG TEST DATE ( test code = 3576) 07/22/2024 Lab Interpretation (test cod e = 31810-8) Normal [facility] MOLECULAR [id number] 23:39:50* Test Item Value Reference Range Interpretation Comme nts POCT Molecular FluA (test co de = 67515-1) Negative Negative POCT Molecular FluB (test co de = 56393-5) Negative Negative Lab Interpretation (test cod e = 45313-0) Normal [facility] MOLECULAR [id number] 23:32:48* Test Item Value Reference Range Interpretation Comme nts POCT Molecular Strep (test c ode = 18768-5) Negative Negative Lab Interpretation (test cod e = 51110-2) Normal [facility] MOLECULAR [id number] 16:57:03* Test Item Value Reference Range Interpretation Comme nts POCT Molecular Strep (test c ode = 41595-1) Negative Negative Lab Interpretation (test cod e = 29226-7) Normal [facility] MOLECULAR [id number] 20:34:36* Test Item Value Reference Range Interpretation Comme nts POCT Molecular Strep (test c ode = 76171-5) Negative Negative Lab Interpretation (test cod e = 81518-7) [facility] W/AUTO DIFF WITH [id number] 05:20:20* Test Item Value Reference Range Interpretation Comme nts WBC (test code = 1001) 6.2 K/UL 3.5-11.0 RBC (test code = 1002) 4.46 M/UL 3.80-5.40 HEMOGLOBIN (test code = 1003) 13.2 G/DL 11.5-15.5 HEMATOCRIT (test code = 1004) 39.1 % 34.0-45.0 MCV (test code = 1005) 87.7 fL 80.0-99.0 MCH (test code = 1006) 29.6 PG 25.0-33.0 MCHC (test code = 1007) 33.8 G/DL 31.0-36.0 RDW (test code = 1038) 12.5 % 11.5-15.0 NEUTROPHILS (test code = 1008) 44.7 % LYMPHOCYTES (test code = 1010) 40.0 % MONOCYTES (test code = 1011) 9.6 % EOSINOPHILS (test code = 1012) 4.9 % BASOPHILS (test code = 1013) 0.6 % IMMATURE GRANULOCYTES (test code = 1036) 0.2 % NUCLEATED RBCS (test code = 1065) 0.0 /100 WBC'S See_Comment [Automated messa ge] The system which generated this result transmitted reference range: 0.0. The reference range was not used to interpret this result as normal/abnormal. PLATELET COUNT (test code = 1015) 253 K/UL 130-400 ABSOLUTE NEUTROPHILS (test code = 1066) 2.76 K/UL 1.50-7.50 ABSOLUTE LYMPHOCYTES (test code = 1067) 2.47 K/UL 1.00-4.00 ABSOLUTE MONOCYTES (test code = 1068) 0.59 K/UL 0.20-1.00 ABSOLUTE EOSINOPHILS (test code = 1040) 0.30 K/UL 0.00-0.50 ABSOLUTE BASOPHILS (test code = 1069) 0.04 K/UL 0.00-0.20 ABS IMMATURE GRANULOCYTES (test code = 1020) 0.01 K/UL 0.00-0.10 ABS NUCLEATED RBCS (test code = 61238) 0.00 K/UL 0.00-0.11 VALPROIC [id number] 04:47:27* Test Item Value Reference Range Interpretation Comme nts VALPROIC ACID (test code = 3025) 67.7 UG/ML 50.0-125.0 REFERENCE RANGES EPILEPSY . . . . . . . . . . . . . .UG/ML 50.0-100.0 SOSA. . . . . . . . . . . . . . . .UG/ML 50.0-125.0 POSSIBLE TOXICITY. . . . . . . . . .UG/ML >125.0 UNLESS OTHERWISE INDICATED, ALL TESTING PERFORMED ATCLINICAL PATHOLOGY [employer] [address] [place] [address] GAMBLING CASHIER: ARMANDO STEVENS M.D. CLIA NUMBER [id number] [place]. [id number] HEPATIC FUNCTION [id number] 04:47:09* Test Item Value Reference Range Interpretation Comme nts PROTEIN, TOTAL (test code = 2228) 6.6 G/DL 6.1-8.3 ALBUMIN (test code = 2200) 4.1 G/DL 3.5-5.2 BILIRUBIN, TOTAL (test code = 2206) <0.2 MG/DL See_Comment [Automated myGreeka ge] The system which generated this result transmitted reference range: <=1.2. The reference range was not used to interpret this result as normal/abnormal. BILIRUBIN, DIRECT (test code = 2021) <0.2 MG/DL 0.0-0.3 ALKALINE PHOSPHATASE (test code = 2203) 62 U/L 40-112 AST (test code = 2217) 27 U/L 9-40 ALT (test code = 2218) 17 U/L 5-40 ABORh [id number] 10:13:52* Test Item Value Reference Range Interpretation Comme nts Methodology (test code = Methodology) Test-Tube(TT) Anti-A (test code = Anti-A) 0 Anti-B (test code = Anti-B) 0 Anti-AB (test code = Anti-AB) NT Anti-D (test code = Anti-D) 4+ ABORh Retype (test code = AB ORh Retype) O POS Comprehensive Metabolic [id number] 07:40:46* Test Item Value Reference Range Interpretation Comme nts Sodium Level (test code = Sodium Level) 138.0 mmol/L 135.0-145.0 Potassium Level (test code = Potassium Level) 4.6 mmol/L 3.5-5.1 Chloride Level (test code = Chloride Level) 104 mmol/L 98-105 CO2 (test code = CO2) 13 mmol/L 22-29 Cri tical results called to [employer] at 09/30/2019 07:37:31 CDT by aby. Read back and verified? yes Anion Gap (test code = Anion Gap) 21 mmol/L 7-16 H BUN (test code = BUN) 20.20 mg/dL 6.00-20.00 H Creatinine Level (test code = Creatinine Level) 0.80 mg/dL 0.50-0.90 BUN/Creat Ratio (test code = BUN/Creat Ratio) 25 N Glucose Level (test code = Glucose Level) 116 mg/dL 70-115 H Calcium Level (test code = Calcium Level) 8.7 mg/dL 8.3-10.5 Alk Phos (test code = Alk Phos) 37 U/L 35-104 Bilirubin Total (test code = Bilirubin Total) 0.3 mg/dL 0.1-0.9 Albumin Level (test code = Albumin Level) 4.2 g/dL 3.5-5.2 Protein Total (test code = Protein Total) 6.1 g/dL 6.4-8.3 L ALT (test code = ALT) 71 U/L 1-33 H AST (test code = AST) 80 U/L 1-32 H Globulin (test code = Globulin) 1.9 g/dL 2.9-3.1 L A/G Ratio (test code = A/G Ratio) 2.2 ratio N Comprehensive Metabolic [id number] 07:40:46* Test Item Value Reference Range Interpretation Comme nts Sodium Level (test code = Sodium Level) 138.0 mmol/L 135.0-145.0 Potassium Level (test code = Potassium Level) 4.6 mmol/L 3.5-5.1 Chloride Level (test code = Chloride Level) 104 mmol/L 98-105 CO2 (test code = CO2) 13 mmol/L 22-29 Critical results called to [employer] at 09/30/2019 07:37:31 CDT by aby. Read back and verified? yes Anion Gap (test code = Anion Gap) 21 mmol/L 7-16 H BUN (test code = BUN) 20.20 mg/dL 6.00-20.00 H Creatinine Level (test code = Creatinine Level) 0.80 mg/dL 0.50-0.90 BUN/Creat Ratio (test code = BUN/Creat Ratio) 25 N Glucose Level (test code = Glucose Level) 116 mg/dL 70-115 H Calcium Level (test code = Calcium Level) 8.7 mg/dL 8.3-10.5 Alk Phos (test code = Alk Phos) 37 U/L 35-104 Bilirubin Total (test code = Bilirubin Total) 0.3 mg/dL 0.1-0.9 Albumin Level (test code = Albumin Level) 4.2 g/dL 3.5-5.2 Protein Total (test code = Protein Total) 6.1 g/dL 6.4-8.3 L ALT (test code = ALT) 71 U/L 1-33 H AST (test code = AST) 80 U/L 1-32 H Globulin (test code = Globulin) 1.9 g/dL 2.9-3.1 L A/G Ratio (test code = A/G Ratio) 2.2 ratio N eGFR AA (test code = eGFR AA) >60 mL/min/1.73 m2 N eGFR (estimated Glomerular Filtration Rate) is an estimated value, calculated from the patient's serum creatinine using the MDRD equation. It is NOT the patient's actual GFR. The eGFR provides a more clinically useful measure of kidney disease than serum creatinine alone.This calculation takes sex and race into account, if the information is provided. If the race is not provided, and the patient is -[place], multiply by 1.212. If sex is not provided, and the patient is female, multiply by 0.742. Results for patients <18 years of age have not been validated by the MDRD study and should be interpreted with caution. eGFR Result Interpretation:eGFR > or = 60 is in the Normal RangeeGFR < 60 may mean kidney diseaseeGFR < 15 may mean kidney failure Ranges recommended by the National Kidney Foundation, http://nkdep.nih.gov Comprehensive Metabolic [id number] 07:40:46* Test Item Value Reference Range Interpretation Comme nts Sodium Level (test code = Sodium Level) 138.0 mmol/L 135.0-145.0 Potassium Level (test code = Potassium Level) 4.6 mmol/L 3.5-5.1 Chloride Level (test code = Chloride Level) 104 mmol/L 98-105 CO2 (test code = CO2) 13 mmol/L 22-29 Critical results called to [employer] at 09/30/2019 07:37:31 CDT by aby. Read back and verified? yes Anion Gap (test code = Anion Gap) 21 mmol/L 7-16 H BUN (test code = BUN) 20.20 mg/dL 6.00-20.00 H Creatinine Level (test code = Creatinine Level) 0.80 mg/dL 0.50-0.90 BUN/Creat Ratio (test code = BUN/Creat Ratio) 25 N Glucose Level (test code = Glucose Level) 116 mg/dL 70-115 H Calcium Level (test code = Calcium Level) 8.7 mg/dL 8.3-10.5 Alk Phos (test code = Alk Phos) 37 U/L 35-104 Bilirubin Total (test code = Bilirubin Total) 0.3 mg/dL 0.1-0.9 Albumin Level (test code = Albumin Level) 4.2 g/dL 3.5-5.2 Protein Total (test code = Protein Total) 6.1 g/dL 6.4-8.3 L ALT (test code = ALT) 71 U/L 1-33 H AST (test code = AST) 80 U/L 1-32 H Globulin (test code = Globulin) 1.9 g/dL 2.9-3.1 L A/G Ratio (test code = A/G Ratio) 2.2 ratio N eGFR AA (test code = eGFR AA) >60 mL/min/1.73 m2 N eGFR (estimated Glomerular Filtration Rate) is an estimated value, calculated from the patient's serum creatinine using the MDRD equation. It is NOT the patient's actual GFR. The eGFR provides a more clinically useful measure of kidney disease than serum creatinine alone.This calculation takes sex and race into account, if the information is provided. If the race is not provided, and the patient is -[place], multiply by 1.212. If sex is not provided, and the patient is female, multiply by 0.742. Results for patients <18 years of age have not been validated by the MDRD study and should be interpreted with caution. eGFR Result Interpretation:eGFR > or = 60 is in the Normal RangeeGFR < 60 may mean kidney diseaseeGFR < 15 may mean kidney failure Ranges recommended by the National Kidney Foundation, http://nkdep.nih.gov eGFR Non-AA (test code = eGFR Non-AA) >60.00 mL/min/1.73 m2 N eGFR (estimated Glomerular Filtration Rate) is an estimated value, calculated from the patient's serum creatinine using the MDRD equation. It is NOT the patient's actual GFR. The eGFR provides a more clinically useful measure of kidney disease than serum creatinine alone.This calculation takes sex and race into account, if the information is provided. If the race is not provided, and the patient is -[place], multiply by 1.212. If sex is not provided, and the patient is female, multiply by 0.742. Results for patients <18 years of age have not been validated by the MDRD study and should be interpreted with caution. eGFR Result Interpretation:eGFR > or = 60 is in the Normal RangeeGFR < 60 may mean kidney diseaseeGFR < 15 may mean kidney failure Ranges recommended by the National Kidney Foundation, http://nkdep.nih.gov Complete Blood Count with [id number] 06:57:54* Test Item Value Reference Range Interpretation Comme nts WBC (test code = WBC) 13.0 x10 4.4-10.5 H RBC (test code = RBC) 4.62 x10 3.75-5.20 Hgb (test code = Hgb) 14.5 g/dL 12.2-14.8 MCV (test code = MCV) 99.10 fL 80.00-100.00 Hct (test code = Hct) 45.8 % 36.5-44.4 H MCHC (test code = MCHC) 31.70 g/dL 32.00-37.50 L RDW CV (test code = RDW CV) 12.7 % 11.5-14.5 MCH (test code = MCH) 31.4 pg 27.0-32.5 Platelets (test code = Platelets) 231.0 x10 140.0-440.0 MPV (test code = MPV) 10.6 fL N Slide Review (test code = Slide Review) Auto Auto Result crea marii by GL_SJM_SLIDE_REV_AUTO nRBC (test code = nRBC) 0 N NRBC Abs (test code = NRBC Abs) 0.00 x10 N IPF (test code = IPF) 0 % N Automated [id number] 06:57:54* Test Item Value Reference Range Interpretation Comme nts Neutro Auto (test code = Rory tro Auto) 63.1 % 36.0-70.0 Lymph Auto (test code = Lymph Auto) 24.3 % 12.0-44.0 Cataño Auto (test code = Cataño Auto) 11.2 % 0.0-11.0 H Eos, Auto (test code = Eos, Auto) 0.5 % 0.0-7.0 Basophil Auto (test code = B asophil Auto) 0.4 % 0.0-2.0 Neutro Absolute (test code = Neutro Absolute) 8.2 x10 1.6-7.4 H Lymph Absolute (test code = Lymph Absolute) 3.15 x10 .50-4.60 Cataño Absolute (test code = M anders Absolute) 1.45 x10 .00-1.20 H Eos Absolute (test code = Eo s Absolute) 0.06 x10 0.00-0.74 Baso Absolute (test code = B aso Absolute) 0.05 x10 0.00-0.21 IG [id number] 06:57:54* Test Item Value Reference Range Interpretation Comme nts IG (test code = IG) 0.5 % 0.0-5.0 IG Abs (test code = IG Abs) 0 x10 N POC [id number] 16:26:26* Test Item Value Reference Range Interpretation Comme nts Glucose POC (test code = Glucose POC) 120 mg/dL 70-115 H If you consi melanie your patient critically ill, the Kristen-Accu Check Infrom II meter should not be used for Glucose determination. Draw a venous Glucose and send to the main Lab for analysis. POC [id number] 15:44:57* Test Item Value Reference Range Interpretation Comme nts Glucose POC (test code = Glucose POC) 150 mg/dL 70-115 H If you consi melanie your patient critically ill, the Kristen-Accu Check Infrom II meter should not be used for Glucose determination. Draw a venous Glucose and send to the main Lab for analysis. ABORh [id number] 13:51:36* Test Item Value Reference Range Interpretation Comme nts Methodology (test code = Methodology) Test-Tube(TT) Anti-A (test code = Anti-A) 0 Anti-B (test code = Anti-B) 0 Anti-AB (test code = Anti-AB) NT Anti-D (test code = Anti-D) 4+ ABORh Retype (test code = AB ORh Retype) O POS POC [id number] 09:55:26* Test Item Value Reference Range Interpretation Comme nts Glucose POC (test code = Glucose POC) 156 mg/dL 70-115 H If you consi melanie your patient critically ill, the Kristen-Accu Check Infrom II meter should not be used for Glucose determination. Draw a venous Glucose and send to the main Lab for analysis. 3C ABSC [id number] 07:43:15* Test Item Value Reference Range Interpretation Comme nts SC1 IS (test code = SC1 IS) NT SC2 IS (test code = SC2 IS) NT SC3 IS (test code = SC3 IS) NT SC1 37 (test code = SC1 37) 0 SC2 37 (test code = SC2 37) 0 SC3 37 (test code = SC3 37) 0 SC1 AHG (test code = SC1 AHG) 0 SC2 AHG (test code = SC2 AHG) 0 SC3 AHG (test code = SC3 AHG) 0 SC1 CC (test code = SC1 CC) 2+ SC2 CC (test code = SC2 CC) 2+ SC3 CC (test code = SC3 CC) 2+ Antibody Screen (3C) (test c ode = Antibody Screen (3C)) Negative ABSC [id number] 07:19:56* Test Item Value Reference Range Interpretation Comme nts Previous History (test code = Previous History) No Prev History BBID (test code = BBID) [id number] Methodology (test code = Methodology) Test-Tube(TT) Anti-A (test code = Anti-A) 0 Anti-B (test code = Anti-B) 0 Anti-D (test code = Anti-D) 4+ DCon (test code = DCon) NT A1 (test code = A1) 4+ B cells (test code = B cells) 4+ ABORh (test code = ABORh) O POS POC [id number] 06:54:58* Test Item Value Reference Range Interpretation Comme nts Glucose POC (test code = Glucose POC) 84 mg/dL 70-115 If you consi melanie your patient critically ill, the Kristen-Accu Check Infrom II meter should not be used for Glucose determination. Draw a venous Glucose and send to the main Lab for analysis. History and Physical Notes Date/Time Note Provider Source 2023-12-13 07:21:46 BARIATRIC SURGERY H&P Date of Service: 12/13/2023 CC: h/o marginal ulcer perforation, malnutrition; follow-up SUBJECT: Hilaria Osorio is a 43 year old female with history of gastric bypass complicated by recent perforated marginal ulcer s/p exploratory laparotomy with closure and omental patch who presents for follow-up. Previous endoscopy 4 months prior demonstrated some friable and mildly inflamed mucosa, no active marginal ulcer noted, tissue appears to be healing, silk suture noted on the clint limb, attempted removal with forceps, however, not amenable. She presents today for EGD and suture removal. No issues since last visit. CURRENT HOSPITAL MEDICATIONS Current Rx Current Outpatient Medications Medication Sig Dispense Refill atorvastatin 20 mg tablet Take 1 tablet by mouth at bedtime. 90 tablet 3 gabapentin 300 mg capsule Take 1 capsule by mouth at bedtime. 30 capsule 5 Levothyroxine 50 mcg capsule Take 1 capsule by mouth in the morning. ergocalciferol, vitamin d2, (VITAMIN D2) 1,250 mcg (50,000 unit) capsule Take 1 capsule by mouth weekly for 120 days. 4 capsule 3 escitalopram oxalate 10 mg tablet Take 1 tablet by mouth in the morning. lisinopriL 5 mg tablet Take 1 tablet by mouth in the morning. pantoprazole (PROTONIX) 40 mg EC tablet Take 1 tablet by mouth in the morning and 1 tablet in the evening. Do all this for 120 days. 60 tablet 3 simethicone (GAS-X ORAL) Take by mouth. sucralfate (CARAFATE) 1 gram tablet Take 1 tablet by mouth in the morning and 1 tablet at noon and 1 tablet in the evening. Do all this for 120 days. 90 tablet 3 dulaglutide (TRULICITY) 3 mg/0.5 mL PnIj inject 1 Pen under the skin weekly. 4 Pen 5 metformin ER 500 mg 24 hr tablet Take 2 tablets by mouth in the morning and 2 tablets in the evening. Take with meals. 360 tablet 3 acetaminophen 325 mg tablet Take 2 tablets by mouth every 6 (six) hours. 240 tablet 11 albuterol 90 mcg/actuation inhaler Inhale 2 Puffs every 6 (six) hours as needed for Shortness of Breath or Chest tightness. 8.5 g 0 buPROPion XL 300 mg 24 hr tablet Take 1 tablet by mouth. busPIRone 15 mg tablet Take 1 tablet by mouth in the morning and 1 tablet at noon and 1 tablet in the evening. divalproex ER 500 mg 24 hr tablet traZODone 100 mg tablet famotidine (PEPCID) 40 mg tablet Take 1 tablet by mouth 2 (two) times daily. 30 tablet 5 buPROPion XL 150 mg 24 hr tablet 2 tablets. blood sugar diagnostic (CONTOUR NEXT TEST STRIPS) strip Take 1 Strip in the morning. Use as directed 100 Strip 3 Blood-Glucose Meter (CONTOUR NEXT METER) [facility] [place], TID, DX:E11.9 300 Each 3 No current facility-administered medications for this visit. HISTORY Past Surgical History: Procedure Laterality Date SECTION x2 CHOLECYSTECTOMY CYSTOSCOPY N/A 06/28/2021 Surgeon: Simone Chadwick MD; [facility] DILATION AND CURETTAGE (SHX) 10/01/2018 DILATION AND CURETTAGE (SHX) N/A 10/01/2018 Surgeon: Simone Chadwick MD; [facility] ESOPHAGOGASTRODUODENOSCOPY N/A 07/02/2023 Surgeon: Clint Jett MD; [facility]: [facility] EXPLORATORY LAPAROTOMY N/A 04/21/2023 Surgeon: Ludy Burnett MD; [facility] HYSTEROSCOPY 10/01/2018 HYSTEROSCOPY N/A 10/01/2018 Surgeon: Simone Chadwick MD; Location: [facility] Location LAP W/TOT HYSTERECT <250GM W/TUBE/OVARY 06/28/2021 LAPAROSCOPIC BARIATRIC GASTRIC BYPASS 09/2019 LAPAROSCOPIC TOTAL ABDOMINAL HYSTERECTOMY N/A 06/28/2021 Surgeon: Simone Chadwick MD; Location: [facility] REDUCTION MAMMOPLASTY @ age 22 REDUCTION OF LARGE BREAST 2003 SALPINGECTOMY Bilateral 06/28/2021 Surgeon: Simone Chadwick MD; Location: [facility] TUBAL LIGATION Past Medical History: Diagnosis Date Abnormal uterine bleeding Anemia Anxiety Asthma Depression Gestational diabetes H/O: hysterectomy 06/2021 Hypercholesteremia Hypertension Hypothyroidism Menstrual disorder PCOS PCOS (polycystic ovarian syndrome) T2DM (type 2 diabetes mellitus) age 27 Social History Socioeconomic History Marital status: Spouse name: Not on file Number of children: Not on file Years of education: Not on file Highest education level: Not on file Occupational History Not on file Tobacco Use Smoking status: Former Types: Cigars Quit date: 09/27/2019 Years since quittin.8 Smokeless tobacco: Former Vaping Use Vaping Use: Every day Start date: 02/11/2023 Substances: Nicotine, Flavoring Devices: Disposable Substance and Sexual Activity Alcohol use: No Alcohol/week: 0.0 standard drinks of alcohol Drug use: No Sexual activity: Yes Partners: Male control/protection: Surgical Other Topics Concern Not on file Social History Narrative Denies hx of physical and sexual abuse. Social Determinants of Health Financial Resource Strain: Low Risk (04/23/2023) Overall Financial Resource Strain (CARDIA) Difficulty of Paying Living Expenses: Not hard at all Food Insecurity: No Food Insecurity (04/23/2023) Hunger Vital Sign Worried About Running Out of Food in the Last Year: Never true Ran Out of Food in the Last Year: Never true Transportation Needs: No Transportation Needs (04/23/2023) PRAPARE - Transportation Lack of Transportation (Medical): No Lack of Transportation (Non-Medical): No Physical Activity: Inactive (04/23/2023) Exercise Vital Sign Days of Exercise per Week: 0 days Minutes of Exercise per Session: 0 min Stress: Not on file Social Connections: Unknown (04/23/2023) Social Connection and Isolation Panel [NHANES] Frequency of Communication with Friends and Family: More than three times a week Frequency of Social Gatherings with Friends and Family: Not on file Attends Episcopal Services: Not on file Active Member of Clubs or Organizations: Not on file Attends Club or Organization Meetings: Not on file Marital Status: Intimate Partner Violence: Not on file Housing Stability: Low Risk (04/23/2023) Housing Stability Vital Sign Unable to Pay for Housing in the Last Year: No Number of Places Lived in the Last Year: 1 Unstable Housing in the Last Year: No REVIEW OF SYSTEMS Constitutional: no fever, chills HEENT: No headache, no vision changes CV: No chest pain Resp: No cough, no shortness of breath GI: No nausea, vomiting, diarrhea, constipation Neuro: No numbness, tingling Skin: No rash Endo: No heat or cold intolerance Musculoskeletal: No joint pain Heme: No easy bruising PHYSICAL EXAM Vitals BP 128/81 | Pulse 83 | Temp 36.9 ?C (98.4 ?F) | Resp 20 | Ht 1.676 m (5' 6") | Wt 74.4 kg (164 lb) | LMP 06/05/2021 | SpO2 97% | BMI 26.47 kg/m? Constitutional: Alert, awake HEENT: Extraocular movements intact, no icterus, moist mucous membranes Neck: Supple, full range of motion. Respiratory: Breathing is clear and easy on room air Cardio: Regular rate and rhythm Abdomen: Soft, non-tender, non-distended, incision well-healed : not tested Rectal: not tested Extremities: No clubbing, cyanosis, or edema. Moves all extremities Skin: No rashes Neurologic: alert and oriented x 3 ASSESSMENT/PLAN Hilaria Osorio is a 43 year old female with history of gastric bypass complicated by recent perforated marginal ulcer s/p exploratory laparotomy with closure and omental patch who presents for follow-up after upper endoscopy. Previous upper endoscopy demonstrating friable and mldly inflamed mucosa, no active marginal ulcer noted, tissue appears to be healing, silk suture noted on the clint limb, attempted removal with forceps, however, not amenable so returned for repeat exam today. PLAN: - Will proceed with EGD and possible suture removal today - Consent obtained and placed in chart Shin Mancia MD General Surgery, PGY-4 Associated attestation - Clint Jett MD - 12/13/2023 7:28 AM CDT After discussion with Dr. Mancia, I examined this patient. I agree with resident's note as written. Clint Jett MD [employer] Division of Minimally Invasive Surgery 12/13/2023 [facility] 2023-07-02 11:45:25 Images from the original note were not included. SURGERY H&P UPDATE: The patient was examined in clinic. There were no updates from H&P by me, on 06/18/23. Patient's consent was verified in the chart. The patient has been NPO . Options, risks and benefits were discussed at time of clinic visit. Diagnosis: History marginal ulcer, gastric bypass Planned Procedure: Upper endoscopy, possible biopsy, all other indicated procedures Clint Jett MD [employer] Division of Minimally Invasive Surgery 07/02/2023 GENERAL SURGERY CLINIC NOTE Date of Service: 06/18/2023 15:12 CC: h/o marginal ulcer perforation, malnutrition SUBJECT: Hilaria Osorio is a 42 year old female with history of gastric bypass complicated by recent perforated marginal ulcer s/p exploratory laparotomy with closure and omental patch who presents for evaluation of marginal ulcer and malnutrition related to gastrointestinal surgery (gastric bypass). Patient was recently hospitalized in 04/2023 due to acute marginal ulcer perforation, managed with srugical intervention with ex-lap, closure of perforation and omental patch. She did well post-op without any major post-operative complications and discharged on PPI and empiric h pylori treatment. Patient has a history of gastric bypass for morbid obesity with significant weight loss. She subsequently had been having issues with epigastric abdominal pain for some time since her bypass surgery, which she was started on antacid medication as needed. She also reports history of smoking for about a year prior to presentation for marginal ulcer perforation. She denies any previous work-up, including EGD, until her recent hospitalization. She Had been following with her Bariatric surgeon up to about a year and a half post-op, however, no further follow-up since. She has not had any recent nutritional lab work-up and reports inconsistent use of multivitamins. She denies any recent chronic/heavy NSAID use or steroids. CURRENT HOSPITAL MEDICATIONS Current Rx Current Outpatient Medications Medication Sig Dispense Refill lisinopriL 5 mg tablet Take 1 tablet by mouth in the morning. pantoprazole (PROTONIX) 40 mg EC tablet Take 1 tablet by mouth in the morning and 1 tablet in the evening. Do all this for 120 days. 60 tablet 3 simethicone (GAS-X ORAL) Take by mouth. sucralfate (CARAFATE) 1 gram tablet Take 1 tablet by mouth in the morning and 1 tablet at noon and 1 tablet in the evening. Do all this for 120 days. 90 tablet 3 dulaglutide (TRULICITY) 3 mg/0.5 mL PnIj inject 1 Pen under the skin weekly. 4 Pen 5 levothyroxine 25 mcg tablet Take 1 tablet by mouth every morning. 90 tablet 3 acetaminophen 325 mg tablet Take 2 tablets by mouth every 6 (six) hours. 240 tablet 11 albuterol 90 mcg/actuation inhaler Inhale 2 Puffs every 6 (six) hours as needed for Shortness of Breath or Chest tightness. 8.5 g 0 buPROPion XL 300 mg 24 hr tablet Take 1 tablet by mouth. busPIRone 15 mg tablet divalproex ER 500 mg 24 hr tablet traZODone 100 mg tablet atorvastatin 20 mg tablet Take 1 tablet by mouth at bedtime. 90 tablet 1 famotidine (PEPCID) 40 mg tablet Take 1 tablet by mouth 2 (two) times daily. 30 tablet 5 buPROPion XL 150 mg 24 hr tablet 2 tablets. metformin ER 500 mg 24 hr tablet Take 2 tablets by mouth in the morning and 2 tablets in the evening. Take with meals. 360 tablet 3 pantoprazole 40 mg EC tablet Take 1 tablet by mouth in the morning and 1 tablet in the evening. 60 tablet 0 polyethylene glycol 3350 17 gram powder Take 1 Packet by mouth in the morning. 30 Packet 0 omwkqtyankmzfxc-nsycxwwposobsxf-HM (BROMFED DM) 2-30-10 mg/5 mL syrup Take 10 mL by mouth 4 (four) times daily as needed for Congestion/Allergies or Cold symptoms. 240 mL 0 Blood-Glucose Meter (CONTOUR NEXT METER) Misc Use as directed, TID, DX:E11.9 300 Each 3 No current facility-administered medications for this visit. HISTORY Past Surgical History: Procedure Laterality Date SECTION x2 CHOLECYSTECTOMY CYSTOSCOPY N/A 06/28/2021 Surgeon: Simone Chadwick MD; Location: [facility] OR LOCATION DILATION AND CURETTAGE (SHX) 10/01/2018 DILATION AND CURETTAGE (SHX) N/A 10/01/2018 Surgeon: Simone Chadwick MD; Location: [facility] OR Location EXPLORATORY LAPAROTOMY N/A 04/21/2023 Surgeon: Ludy Burnett MD; Location: [facility] OR LOCATION HYSTEROSCOPY 10/01/2018 HYSTEROSCOPY N/A 10/01/2018 Surgeon: Simone Chadwick MD; Location: [facility] OR Location LAP W/TOT HYSTERECT <250GM W/TUBE/OVARY 06/28/2021 LAPAROSCOPIC BARIATRIC GASTRIC BYPASS 09/2019 LAPAROSCOPIC TOTAL ABDOMINAL HYSTERECTOMY N/A 06/28/2021 Surgeon: Simone Chadwick MD; Location: [facility] OR [facility] REDUCTION MAMMOPLASTY @ age 22 REDUCTION OF LARGE BREAST 2003 SALPINGECTOMY Bilateral 06/28/2021 Surgeon: Simone Chadwick MD; Location: [facility] OR [facility] TUBAL LIGATION Past Medical History: Diagnosis Date Abnormal uterine bleeding Anemia Anxiety Asthma Depression Gestational diabetes H/O: hysterectomy 06/2021 Hypercholesteremia Hypertension Hypothyroidism Menstrual disorder PCOS PCOS (polycystic ovarian syndrome) T2DM (type 2 diabetes mellitus) age 27 Social History Socioeconomic History Marital status: Spouse name: Not on file Number of children: Not on file Years of education: Not on file Highest education level: Not on file Occupational History Not on file Tobacco Use Smoking status: Former Types: Cigars Quit date: 09/27/2019 Years since quittin.7 Smokeless tobacco: Never Vaping Use Vaping Use: Never used Substance and Sexual Activity Alcohol use: No Alcohol/week: 0.0 standard drinks of alcohol Drug use: No Sexual activity: Yes Partners: Male control/protection: Surgical Other Topics Concern Not on file Social History Narrative Denies hx of physical and sexual abuse. Social Determinants of Health Financial Resource Strain: Low Risk (04/23/2023) Overall Financial Resource Strain (CARDIA) Difficulty of Paying Living Expenses: Not hard at all Food Insecurity: No Food Insecurity (04/23/2023) Hunger Vital Sign Worried About Running Out of Food in the Last Year: Never true Ran Out of Food in the Last Year: Never true Transportation Needs: No Transportation Needs (04/23/2023) PRAPARE - Transportation Lack of Transportation (Medical): No Lack of Transportation (Non-Medical): No Physical Activity: Inactive (04/23/2023) Exercise Vital Sign Days of Exercise per Week: 0 days Minutes of Exercise per Session: 0 min Stress: Not on file Social Connections: Unknown (04/23/2023) Social Connection and Isolation Panel [NHANES] Frequency of Communication with Friends and Family: More than three times a week Frequency of Social Gatherings with Friends and Family: Not on file Attends Episcopal Services: Not on file Active Member of Clubs or Organizations: Not on file Attends Club or Organization Meetings: Not on file Marital Status: Intimate Partner Violence: Not on file Housing Stability: Low Risk (04/23/2023) Housing Stability Vital Sign Unable to Pay for Housing in the Last Year: No Number of Places Lived in the Last Year: 1 Unstable Housing in the Last Year: No REVIEW OF SYSTEMS Constitutional: no fever, chills HEENT: No headache, no vision changes CV: No chest pain Resp: No cough, no shortness of breath GI: No nausea, vomiting, diarrhea, constipation Neuro: No numbness, tingling Skin: No rash Endo: No heat or cold intolerance Musculoskeletal: No joint pain Heme: No easy bruising PHYSICAL EXAM Vitals BP 111/75 | Pulse 86 | Temp 36.2 ?C (97.2 ?F) | Resp 18 | Ht 1.676 m (5' 6") | Wt 72.6 kg (160 lb) | LMP 06/05/2021 | SpO2 99% | BMI 25.82 kg/m? Constitutional: Alert, awake HEENT: Extraocular movements intact, no icterus, moist mucous membranes Neck: Supple, full range of motion. Respiratory: Breathing is clear and easy on room air Cardio: Regular rate and rhythm Abdomen: Soft, non-tender, non-distended, incision healing well, scar noted, small area likely spit stitch, but no evidence of infection or active drainage : not tested Rectal: not tested Extremities: No clubbing, cyanosis, or edema. Moves all extremities Skin: No rashes Neurologic: alert and oriented x 3 LABORATORY/MICROBIOLOGY Labs reviewed by me on 06/18/2023. Pertinent labs include: none RADIOLOGY Radiology reviewed by me on 06/18/2023. Pertinent imaging includes: CTAP (04/20/23) - pneumoperitoneum, likely gastrojejunal anastomosis perforation ASSESSMENT/PLAN Hilaria Osorio is a 42 year old female with history of gastric bypass complicated by recent perforated marginal ulcer s/p exploratory laparotomy with closure and omental patch who presents for evaluation of marginal ulcer and malnutrition related to gastrointestinal surgery (gastric bypass). Patient is doing well since surgery without acute issues. However, ongoing tobacco use and poor compliance with medications. PLAN: - Given h/o gastric bypass, marginal ulcer complicated by perforation, plan for EGD to assess healing/improvement and need for additional therapy - Discussed the significant importance of smoking cessation given patient history, demonstrated understanding; also discussed no NSAID use - H pylori stool to assess for eradication - Nutrition and kasie labs - Daily multivitamin requirements discussed and recommended - Continue PPI BID, added carafate TID for history of marginal ulcer - F/u 07/16/23 after the above completed Clint Jett MD [employer] Division of Minimally Invasive Surgery 06/18/2023 SHING INSPECTOR [facility] Notes Date/Time Note Provider Source 2023-12-11 14:30:58 Patient contacted for pre op phone call. Patient given procedural prep instructions, NPO status/timing for procedure, medication instructions, Pt is off Mounjaro for procedure. .Patient verbalized understanding of instructions. Discussed with patient they will need a responsible adult, 18 years old or older, to provide transportation on the day of procedure. Patient also informed that they will be contacted the day before their procedure with arrival time. Pre op call complete. Nkechi Barahona RN [facility] 2023-11-26 14:07:27 Images from the original note were not included. PA approved. Ann Marie Gillespie [facility] 2023-11-22 16:47:07 PA completed. Hilaria Osorio (Castellano: [id number]) Ann Marie Gillespie [facility] 2023-11-22 16:28:11 I think you have to call [facility] and see which brand they carry. They only carry one brand, its either Accuchek or Contour? Which ever one they have I can re-do the prescription. [facility] 2023-11-22 16:19:42 Images from the original note were not included. Shikha, please advise on if meter kit can be ordered that is on pt formulary or advise on the following for current prescribed meter : [facility] 2023-11-16 12:18:43 Images from the original note were not included. Awilda Ac MA [facility] 2023-11-16 11:00:00 Images from the original note were not included. Venipuncture collection performed by clean technique on the right anticubitus. Total of 1 attempts were made. Slight pressure and a bandage/dressing were applied to the site(s). The patient experienced no complications. The following specimens were processed according to instructions and sent to [facility] laboratories per lab order on 11/16/2023 : LT BLUE SST 1 RED LAV PPT DK GREEN (LiHep) DK GREEN (SodH) MCGHEE DK BLUE (K2) DK BLUE (S) ACD Blood Culture NIPT/NTD Patient has been identified by and name and was provided with cup, antiseptic towelette, and clean catch instructions. 1 urine specimen(s) sent. Unpreserved 1 Urine Culture Aptima tube Other urine T [facility] 2023-11-14 13:33:01 Patient has an appointment on Wednesday 11/15 with Shikha the licensed practical nurse clinic nurse. Due to the patients insurance she is requires to obtain a referral from her PCP to see a specialist. Please upload referral. Thank you Thelma Mathis [facility] 2023-10-12 10:00:00 Addended by: YUNI SCOTT on: 10/12/2023 10:54 AM Modules accepted: Orders [facility] 2023-07-16 11:54:00 Attempted to reschedule. VM not available SHING INSPECTOR Rosangela Quigley [facility] 2023-07-16 08:33:56 Copied from [facility] #[id number]. Topic: Appointment - Reschedule Appointment >> Jul 16, 2023 8:32 AM Patient Manager Learning wrote: Hilaria Osorio is a 43 year old female Pt is requesting to reschedule missed appt,pt can be reached at [phone] Thank you N Sainz [facility] 2023-07-02 14:19:20 Addendum created 07/02/23 1419 by Lisha Cornelius CRNA Intraprocedure Meds edited SHING INSPECTOR NACR-NURSE LUMP MACHINE OPERATOR,CERTIFI ED REGISTERED NURSE LUMP MACHINE OPERATOR [facility] 2023-07-02 13:12:52 Patient: Hilaria Osorio Procedure Summary Date: 07/02/23 Room / Location: [address] LOCATION Anesthesia Start: 1219 Anesthesia Stop: 1245 Procedure: ESOPHAGOGASTRODUODENOSCOPY (Mouth) Diagnosis: Marginal ulcer (Marginal ulcer [K28.9]) Surgeons: Clint Jett MD Responsible Provider: Shawn Rust MD Anesthesia Type: TIVA, General ASA Status: 2 Anesthesia Type: TIVA, General Last vitals BP Temp Pulse Resp SpO2 BP (!) 150/81 | Pulse 65 | Temp 36.1 ?C (97 ?F) (Temporal Artery) | Resp 18 | Ht 1.676 m (5' 6") | Wt 72.6 kg (160 lb) | LMP 06/05/2021 | SpO2 99% | BMI 25.82 kg/m? There were no known notable events for this encounter. Anesthesia Post Evaluation Patient location during evaluation: PACU Patient participation: complete - patient participated Level of consciousness: awake and alert Pain management: satisfactory to patient Airway patency: patent Cardiovascular status: acceptable and blood pressure returned to baseline Respiratory status: acceptable Hydration status: acceptable [facility] 2023 09:45:00 Images from the original note were not included. Venipuncture collection performed by clean technique on the left anticubitus. Total of 1 attempts were made. Slight pressure and a bandage/dressing were applied to the site(s). The patient experienced no complications. The following specimens were processed according to instructions and sent to [facility] laboratories per lab order on 2023: LT BLUE SST 5 RED LAV 2 PPT DK GREEN (LiHep) 1 DK GREEN (SodH) MCGHEE DK BLUE (K2) DK BLUE (S) ACD Blood Culture NIPT/NTD [facility] 2023-06-22 14:01:37 Images from the original note were not included. Your procedure is at [facility] on 07/02/23. The address is [address] [place] [address], [facility]. [facility] nursing staff will call you the workday before your procedure to let you know what time to arrive.On the day of your procedure, please go inside that door and check in at the desk. Please note: You may not travel home alone and that includes in a taxi or by bus. We must speak to your Responsible Adult (who will be picking you up) the morning of your procedure, before the start of your procedure. This person must be an adult over the age of 18 years of age. Do not eat any solid food after midnight the night before surgery. You may have sips of clear liquids such as water, gatorade, and sprite up until two hours before your scheduled procedure. You may take your medications with a sip of water as directed by physician. Anticoagulants will be per physician guidance. Medication Note(s)/Instructions: Patient educated on medication. Patient was instructed to hold the evening dose of Metformin and the morning of the procedure. Hold Lisinopril the day before and the morning of. Hold Trulicity the day before the procedure. Understanding was verbalized, with no questions or concerns at this time. Teach-back method repeated and confirmed. There are pre-op orders for labs patient said that she will do them next week. Pending screening, we may test for COVID. If a patient tests positive, their cases are cancelled and/or rescheduled. COVID SCREENING NOTE: Denies COVID symptoms, no testing required. Additional requests, questions, concerns: Patient verbalized understanding of pre-op instructions and voiced no further questions at this time. SHING INSPECTOR Ashtyn Chiu RN [facility] 2023-06-20 09:40:33 Name/ MRN / Age / Gender: Hilaria Osorio, [id number] 40 year old female BMI: Estimated body mass index is 25.82 kg/m? as calculated from the following: Height as of 06/18/23: 1.676 m (5' 6"). Weight as of 06/18/23: 72.6 kg (160 lb). Allergies: Ciprofloxacin hcl and Pcn [penicillins] Last Vitals: BP Readings from Last 1 Encounters: 06/18/23 111/75 Pulse Readings from Last 1 Encounters: 06/18/23 86 SpO2 Readings from Last 1 Encounters: 06/18/23 99% Date of Surgery: 07/02/2023 Surgeon: Simone Chadwick MD Procedure: ESOPHAGOGASTRODUODENOSCOPY (Mouth) OR Location: [facility] OR LOCATION Anesthesia Preop Eval (physical exam) Copied forward and updated from: 05/05 Ex Lap Anesthesia Preop: Chart Review and [id number] [facility] Communication: 07/02/2023 11:51: Faculty DOS review and update of previously completed pre-op. NPO Status Verified Clear Liquids: > 2 Hours Solid Food/Non-Clear Liquids: > 8 Hours PONV Risk Factors: female and non-smoker PONV Risk Score: 2 Anesthesia History (-) Hx of anesthetic complications (-) Hx of PONV (-) Hx of malignant hyperthermia (-) Pt reports no hx of difficult airway Previous Anesthetics/Airways Cardiovascular Negative Cardiac ROS (-) Chest pain with 1-2 flights of stairs (+) Hypertension (+) Dyslipidemia (-) Hx of cardiac stress test (-) Hx of cardiac cath (-) Angina/Chest Pain Within Last Year (-) Patient does not report prior PR (-) CAD (-) Valvular problems/murmurs (-) Dysrhythmias (-) Pt reports prior cardiac surgery (-) No cardiovascular devices present (-) CHF Pulmonary (-) Patient does not report snoring or stopping breathing during sleep (-) Home O2 (-) COPD (+) Asthma (-) ED/Hospitilized in the last year Frequency of inhaler/nebulizer use: seldom (-) Tobacco use (-) Recent bronchitis or URI Neuro/Musculoskeletal (-) CVA(-) Seizures (+) Psychiatric history and depression (+) Anxiety (-) Neuromuscular Disease (+) Obesity GI/Hepatic Negative GI/Hepatic ROS GI/Hepatic ROS Negative per Chart Review (-) GERD (-) Liver disease Hematology Negative Hematology ROS Hematology ROS Negative per Chart Review (-) PE/DVT (-) Not on anti-coagulant therapy Renal Negative Renal ROS Renal ROS Negative per Chart Review (-) Renal disease (-) Dialysis Skin Skin ROS Negative per Chart Review Endo/Other (+) Diabetes Mellitus and on oral meds Average Blood Glucose Range: unnknown Other (-) Tobacco use SCIENTIFIC PROGRAMMER ANALYST SCIENTIFIC PROGRAMMER ANALYST N/A Pediatric Pediatric N/A N/A Preoperative Medication Instructions Continue taking all prescribed medications except: YAAKOV inhibitors, ARBs, diuretics, all oral diabetes medications Anticoagulant Therapy: Defer to surgeons Insulin: Take 1/2 dose the night prior to surgery. Hold on DOS. Phentermine: Alert [facility] anesthesiologist SGLT2 Inhibitors: "gliflozins" to be held for 3 days prior to elective surgeries GLP1 Agonosit: stop 7 days prior to surgery MAC Cases: Continue taking YAAKOV inhibitors and ARBs ASA Classification ASA: 2 ASA Comments: Asthma, Anxiety, Hypothyroid, HTN, HLD, DM2 UPT ordered DOS Current Medications: No outpatient medications have been marked as taking for the 07/02/23 encounter (Hospital Encounter). Previous Surgeries: Past Surgical History: Procedure Laterality Date SECTION x2 CHOLECYSTECTOMY CYSTOSCOPY N/A 06/28/2021 Surgeon: Simone Chadwick MD; Location: [facility] OR LOCATION DILATION AND CURETTAGE (SHX) 10/01/2018 DILATION AND CURETTAGE (SHX) N/A 10/01/2018 Surgeon: Simone Chadwick MD; [facility] EXPLORATORY LAPAROTOMY N/A 04/21/2023 Surgeon: Ludy Burnett MD; Location: [facility] OR LOCATION HYSTEROSCOPY 10/01/2018 HYSTEROSCOPY N/A 10/01/2018 Surgeon: Simone Chadwick MD; [facility] Location LAP W/TOT HYSTERECT <250GM W/TUBE/OVARY 06/28/2021 LAPAROSCOPIC BARIATRIC GASTRIC BYPASS 09/2019 LAPAROSCOPIC TOTAL ABDOMINAL HYSTERECTOMY N/A 06/28/2021 Surgeon: Simone Chadwick MD; Location: [facility] OR LOCATION REDUCTION MAMMOPLASTY @ age 22 REDUCTION OF LARGE BREAST 2003 SALPINGECTOMY Bilateral 06/28/2021 Surgeon: Simone Chadwick MD; Location: [facility] OR LOCATION TUBAL LIGATION Anesthesia Physical Exam General no apparent distress and alert and oriented x 3 Neuro/Psych Dental no notable dental hx Abdominal GI exam normal Airway Mallampati score:II TM distance:> 5 cm Neck ROM: full Mouth opening:normal (+) Normal facies Burn on lower lip Extremity Pulmonary pulmonary exam normal and bilateral clear to auscultation Other Cardiovascular cardiovascular exam normalRhythm:regular Rate: normal (-) no murmur and peripheral edema Anesthesia Plan ASA Status: 2 Plan discussed during pre-op evaluation: TIVA and General Anesthetic plan on DOS: TIVA and General Plan to include: IV induction, nasal cannula and face mask Anesthesia plan discussed with: patient or environmental marketing representative Post-Operative Analgesia: routine analgesia & antiemetics Recovery Plan: PACU Additional comments: [facility] 2023-06-05 11:47:10 Hilaria Osorio is a 42 year old female pt states that her Trulicity 1.5 mg/0.5 mL subcutaneous pen injector (dulaglutide) Rx is the wrong dosage. she states she should have 3 mg as opposed to the 1.5 mg Pt is requesting that the updated Rx be sent to [facility] [id number] [place] [id number] Pt would like call back when Rx has been adjusted and filled [phone] (home) SHING INSPECTOR Baltazar Núñez [facility] 2023-05-25 17:41:20 Provider brought into clinic completed FMLA forms Cert period: 04/21/2023-06/22/2023 No information on where forms need to be sent. Copy submitted to be uploaded into [employer]. Copy sent to patient via [employer], Mobile Secretary. Miriam Arroyo RN SHING INSPECTOR Miriam Arroyo RN [facility] 2023-05-11 16:15:52 Pt [address] scheduled with Dr. Jett in [facility], moved pt to [facility]'s schedule as pt lives closer. SHING INSPECTOR Nicolette Erickson [facility] 2023-05-10 14:56:[address] Burnett's note on 05/02/23 "Follow-up set up with Dr. Jett for evaluation and EGD " Does this patient not have a referral order in for ? If they do have a referral, can someone make sure she gets contacted and set up with an appointment? Rosario Todd SHING INSPECTOR Rosario Vega RN [facility] 2023-05-10 09:42:03 Hilaria Osorio is a 42 year old female patient calling for EGD orders to be placed in Epic for scheduling. Please call [phone] N Herrera [facility] 2023-05-02 13:45:00 Addended by: LUDY BURNETT MD on: 05/02/2023 04:41 PM Modules accepted: Level of Service SHING INSPECTOR MICHEAL-SURGICAL ONCOLOGY STAFF [facility]
[2024-04-10] MEDS ORDERED: CEFTRIAXONE 500 MG/VIAL ONE (06:37)
[2024-04-10] MEDS ORDERED: metroNIDAZOLE 500 MG TABLET ONE (06:37)
[2024-04-10] MEDS ORDERED: ONDANSETRON 4 MG (ODT) TAB ONE ×2 (06:37→06:41)
[2024-04-10] MEDS ORDERED: AZITHROMYCIN 250 MG TAB ONE (06:37)
[2024-04-10] MEDS ORDERED: WATER FOR INJ,STERILE 10 ML ONE (06:38)
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
[2024-04-10] MEDS ORDERED: ACETAMINOPHEN 500 MG TAB ONE (06:48)
[2024-04-10 07:13] VITALS: TEMP 98.6
[2024-04-10 07:17] VITALS: BP 100/62; O2SAT 100
== END 2024-04-10 07:02 | disposition home or self-care (01) ==
LOC: ER 23:34
DX: T74.21XA Adult sexual abuse, confirmed, initial encounter (principal); S00.81XA Abrasion of other part of head, initial encounter; T14.8XXA Other injury of unspecified body region, initial encounter
CPT/HCPCS: 96372; 99284; Q0162